=== PATIENT | female | born 1960 | race Caucasian/White ===

== ENCOUNTER 2016-10-07 09:50 | Emergency (ER) | payer OTHER ==
[2016-10-07] MEDS ORDERED: MORPHINE SULFATE 10 MG/ML INJ IM ONE ×2 (10:36→10:39)
[2016-10-07] MEDS ORDERED: ONDANSETRON 4 MG TAB.RAPDIS PO ONE (10:39)
--- NOTE | 2016-10-07 10:45 | ER Document Report ---
ED Neck/Back Problem - General Chief Complaint: Back Pain Stated Complaint: BACK PAIN Time Seen by Provider: 10/07/16 10:16 Notes: 56 yo female c/o low back pain x 4 days. 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 + radiculpathy to right hip. no bowel/ bladder change, no fever. + nausea, + headache TRAVEL OUTSIDE OF THE [place] IN LAST 30 DAYS: No - HPI Patient complains to provider of: Pain Onset: Gradual Timing: Constant, Worse Quality of pain: Burning, Sharp Pain Level: 4 Recent injury: Possibly Associated symptoms: Radiation to leg - right, Lower back pain. denies: Fever, Incontinence, Sensory loss, Unable to urinate Exacerbated by: Sitting position, Other - changing positions Similar symptoms previously: No Recently seen / treated by doctor: No - Related Data Allergies/Adverse Reactions: No Known Allergies Allergy (Verified 10/07/16 09:57) Past Medical History - General Information source: Patient - Social History Smoking Status: Current Every Day Smoker Frequency of alcohol use: None Drug Abuse: None Lives with: Family Family History: Reviewed & Not Pertinent Patient has suicidal ideation: No Patient has homicidal ideation: No Renal/ Medical History: Denies: Hx Peritoneal Dialysis Review of Systems - Review of Systems Constitutional: No symptoms reported EENT: No symptoms reported Cardiovascular: No symptoms reported Respiratory: No symptoms reported Gastrointestinal: No symptoms reported Genitourinary: No symptoms reported Female Genitourinary: No symptoms reported Musculoskeletal: Back pain Skin: No symptoms reported Hematologic/Lymphatic: No symptoms reported Neurological/Psychological: No symptoms reported -: Yes All other systems reviewed and negative Physical Exam - Vital signs Vitals: Temp Pulse Resp BP Pulse Ox 98.6 F 74 16 180/89 H 97 10/07/16 09:57 10/07/16 09:57 10/07/16 09:57 10/07/16 09:57 10/07/16 09:57 Interpretation: Normal - General General appearance: Alert In distress: Mild - HEENT Head: Normocephalic, Atraumatic Eyes: Normal Pupils: PERRL - Respiratory Respiratory status: No respiratory distress Chest status: Nontender Breath sounds: Normal Chest palpation: Normal - Cardiovascular Rhythm: Regular Heart sounds: Normal auscultation Murmur: No - Abdominal Inspection: Normal Distension: No distension Bowel sounds: Normal Tenderness: Nontender Organomegaly: No organomegaly - Back Back: Tender, Vertebra tenderness - lumbar spinal and right paraspinal tenderness. mild right SI tenderness. negative SLT, neg heel/toe. No: CVA tenderness - Extremities General upper extremity: Normal inspection, Nontender, Normal color, Normal ROM , Normal temperature General lower extremity: Normal inspection, Nontender, Normal color, Normal ROM , Normal temperature, Normal weight bearing. No: Lon's sign - Neurological Neuro grossly intact: Yes Cognition: Normal Orientation: AAOx4 [place] Coma Scale Eye Opening: Spontaneous [place] Coma Scale Verbal: Oriented [place] Coma Scale Motor: Obeys Commands [place] Coma Scale Total: 15 Speech: Normal Motor strength normal: LUE, RUE, LLE, RLE Sensory: Normal - Psychological Associated symptoms: Normal affect, Normal mood - Skin Skin Temperature: Warm Skin Moisture: Dry Skin Color: Normal Course - Re-evaluation Re-evalutation: 10/07/16 10:43 no neurologic red flags. no imaging indicated. low suspicion for cauda equina , epidural abscess, spinal impingement. no urinary symtpoms 10/07/16 10:48 blood pressure is elevated today. no hx/o HTN. most likely due to pain. pt aware of elevated reading and told to recheck blood pressure when pain is controlled. - Vital Signs Vital signs: Temp Pulse Resp BP Pulse Ox 98.6 F 74 18 180/89 H 97 10/07/16 09:57 10/07/16 09:57 10/07/16 10:15 10/07/16 09:57 10/07/16 09:57 Discharge - Discharge Clinical Impression: Low back pain Qualifiers: Chronicity: acute Back pain laterality: midline Sciatica presence: with sciatica Sciatica laterality: sciatica of right side Qualified Code(s): M54.41 - Lumbago with sciatica, right side Condition: Stable Disposition: HOME, SELF-CARE Instructions: Ice Packs ([facility]), Warm Packs ([facility]), Oral Narcotic Medication ([facility]) , Low Back Pain ([facility]), Muscle Relaxers ([facility]), Ibuprofen (General) ([facility]) Additional Instructions: please take medications as prescribed follow up with primary care or worker's comp provider for further evaluation and treatment if pain persists your blood pressure is elevated today, please keep blood pressure diary. if BP remains elevated, follow up with your primary care for further treatment Prescriptions: Ibuprofen [Motrin 800 Mg Tablet] 800 mg PO Q6H #20 tablet Methocarbamol [Robaxin 500 Mg Tablet] 1,000 mg PO Q6 #30 tablet Oxycodone HCl/Acetaminophen [Percocet 5-325 mg Tablet] 1 - 2 tab PO ASDIR PRN # 25 tablet PRN Reason: Forms: Return to Work, Elevated Blood Pressure
[2016-10-07 11:48] VITALS: BP 146/81
== END 2016-10-07 11:48 | disposition home or self-care (01) ==
LOC: ER 09:50
DX: M54.41 Lumbago with sciatica, right side (principal); M54.5 Low back pain; M54.9 Dorsalgia, unspecified; F17.200 Nicotine dependence, unspecified, uncomplicated
CPT/HCPCS: 99283; 96372; S0119; J2270

== ENCOUNTER 2019-06-24 19:06 | Inpatient (IN) | payer BC, OTHER ==
--- NOTE | 2019-06-24 19:56 | EKG REPORT ---
SEVERITY:- ABNORMAL ECG - SINUS TACHYCARDIA LEFT AXIS DEVIATION BORDERLINE R WAVE PROGRESSION, ANTERIOR LEADS BORDERLINE T ABNORMALITIES, LATERAL LEADS : Confirmed by: Eric Nuñez MD 24-Jun-2019 19:55:28
[2019-06-24] MEDS ORDERED: ONDANSETRON 4 MG TAB.RAPDIS PO ONE (20:04)
--- NOTE | 2019-06-24 20:10 | ER Document Report ---
ED Medical Screen (RME) - General Chief Complaint: General Weakness Stated Complaint: GENERAL WEAKNESS,DIZZINESS,LETHARGIC Time Seen by Provider: 06/24/19 20:04 Notes: HPI: 59-year-old female with history of rheumatoid arthritis, hypertension, type 2 diabetes presenting for multiple complaints. Patient states she has been having ongoing symptoms for a month of generalized weakness, intermittent shortness of breath, episodes of dizziness, episodes of falling, episodes of swelling of the legs and ankles. Has gone to her PCP several times is not satisfied with their treatment so decided to come to the emergency department tonight. Patient states a week ago she did have a fall with injury to the right chest wall area, also bruised to the left leg. Does report increased sensation of need to urinate with only small amounts of urine I have greeted and performed a rapid initial assessment of this patient. A comprehensive ED assessment and evaluation of the patient, analysis of test results and completion of the medical decision making process will be conducted by additional ED providers PHYSICAL EXAMINATION: GENERAL: Well-appearing, well-nourished and in mild acute distress. HEAD: Atraumatic, normocephalic. EYES: sclera anicteric, conjunctiva are normal. ENT: Moist mucous membranes. NECK: Normal range of motion LUNGS: Normal work of breathing, clear to auscultation, mild tachycardia HEART: 2+ radial pulses bilaterally ABD: limited by positioning for exam in triage. Mild generalized tenderness on exam EXTREMITIES: 1+ edema bilateral lower extremities edema. No cyanosis. NEUROLOGICAL: No focal neurological deficits. Moves all extremities spontaneously and on command. PSYCH: Normal mood, normal affect. SKIN: Warm, Dry, normal turgor, no rashes or lesions noted. TRAVEL OUTSIDE OF THE [place] IN LAST 30 DAYS: No - Related Data Allergies/Adverse Reactions: No Known Allergies Allergy (Verified 10/07/16 09:57) Past Medical History - Social History Frequency of alcohol use: None Drug Abuse: None Renal/ Medical History: Denies: Hx Peritoneal Dialysis Physical Exam - Vital signs Vitals: Temp Pulse Resp BP Pulse Ox 97.9 F 106 H 20 143/75 H 94 06/24/19 19:38 06/24/19 19:38 06/24/19 19:38 06/24/19 19:38 06/24/19 19:38 Course - Vital Signs Vital signs: Temp Pulse Resp BP Pulse Ox 97.9 F 106 H 20 143/75 H 94 06/24/19 19:38 06/24/19 19:38 06/24/19 19:38 06/24/19 19:38 06/24/19 19:38 - Laboratory Laboratory results interpreted by me: 06/24/19 19:34 POC Glucose 154 H
--- NOTE | 2019-06-24 20:34 | RADIOLOGY REPORT (SQ) ---
EXAM DESCRIPTION: [facility]: XR CHEST 2 VIEWS Views: 2 CLINICAL HISTORY: 59 years Female; sob; COMPARISON: None. FINDINGS: Lungs: Small right pleural effusion. Minimal right basal atelectasis. No focal acute infiltrates. No pneumothorax. No left pleural effusion. Mediastinum: Mediastinum is within normal limits for this positioning. Bones: Bony structures are unremarkable. IMPRESSION: 1. Small right pleural effusion with partial right lower lobe atelectasis.
[2019-06-24 20:55] LABS: ABSOLUTE BASOPHILS # (AUTO) 0.1 10^3/uL (0.0-0.2); ABSOLUTE EOSINOPHILS # (AUTO) 0.2 10^3/uL (0.0-0.6); ABSOLUTE LYMPHOCYTES (AUTO) 1.3 10^3/uL (0.5-4.7); ABSOLUTE MONOCYTES (AUTO) 1.2 10^3/uL (0.1-1.4); ABSOLUTE NEUT (AUTO) 10.4 10^3/uL (1.7-8.2); BASOPHILS % (AUTO) 0.9 % (0-2); EOSINOPHILS % (AUTO) 1.5 % (0-6); HEMATOCRIT 38.7 % (36.0-47.0); HEMOGLOBIN 12.9 g/dL (12.0-15.5); LYMPHOCYTES % (AUTO) 9.5 % (13-45); MEAN CORPUSCULAR HEMOGLOBIN 27.2 pg (27.0-33.4); MEAN CORPUSCULAR HGB CONC 33.3 g/dL (32.0-36.0); MEAN CORPUSCULAR VOLUME 82 fl (80-97); MONOCYTES % (AUTO) 9.3 % (3-13); PLATELET COUNT 575 10^3/uL (150-450); RED BLOOD COUNT 4.74 10^6/uL (3.72-5.28); RED CELL DISTRIBUTION WIDTH 13.9 % (11.5-14.0); SEGMENTED NEUTROPHILS % (AUTO) 78.8 % (42-78); TOTAL CELLS COUNTED % (AUTO) 100 %; WHITE BLOOD COUNT 13.2 10^3/uL (4.0-10.5)
[2019-06-24 21:13] LABS: ALBUMIN 3.5 g/dL (3.5-5.0); ALKALINE PHOSPHATASE 163 U/L (38-126); ANION GAP 11 (5-19); ASPARTATE AMINO TRANSFERASE 13 U/L (14-36); BILIRUBIN,DIRECT 0.2 mg/dL (0.0-0.4); BILIRUBIN,TOTAL 0.5 mg/dL (0.2-1.3); BLOOD UREA NITROGEN 12 mg/dL (7-20); CALCIUM 9.9 mg/dL (8.4-10.2); CARBON DIOXIDE 26 mmol/L (22-30); CHLORIDE 95 mmol/L (98-107); GLUCOSE 155 mg/dL (75-110); POTASSIUM 4.1 mmol/L (3.6-5.0); TOTAL PROTEIN 6.6 g/dL (6.3-8.2)
[2019-06-24 21:15] LABS: CREATINE KINASE < 20 U/L (30-135)
--- NOTE | 2019-06-24 21:30 | ER Document Report ---
ED General - General Chief Complaint: General Weakness Stated Complaint: GENERAL WEAKNESS,DIZZINESS,LETHARGIC Time Seen by Provider: 06/24/19 20:04 Notes: Patient is a 59-year-old female that comes to the emergency department for chief complaint of abdominal pain, nausea, vomiting, generalized weakness, and inability to eat. She states that she hurts in her upper abdomen, she states whenever she tries to eat she will vomit or have a lot of pain. She states that she is starting to get so weak that she fell a couple of days ago, she states the right side of her chest is bruised and still hurts and she also bruised her left proximal thigh. She denies hitting her head. She denies difficulty breathing or current chest pain except for when she moves. She denies fever. She has had a cholecystectomy, denies alcohol. Past medical history of type 2 diabetes on metformin, hypertension on lisinopril, rheumatoid arthritis on methotrexate, anxiety/depression on duloxetine. Her primary care is Dr. Wyatt. TRAVEL OUTSIDE OF THE [place] IN LAST 30 DAYS: No - Related Data Allergies/Adverse Reactions: No Known Allergies Allergy (Verified 10/07/16 09:57) Past Medical History - General Information source: Patient - Social History Smoking Status: Current Every Day Smoker Frequency of alcohol use: None Drug Abuse: None Lives with: Family Family History: Reviewed & Not Pertinent Patient has suicidal ideation: No Patient has homicidal ideation: No - Past Medical History Cardiac Medical History: Reports: Hx Hypertension Endocrine Medical History: Reports: Hx Diabetes Mellitus Type 2 Renal/ Medical History: Denies: Hx Peritoneal Dialysis Musculoskeletal Medical History: Reports Hx Arthritis - RA Psychiatric Medical History: Reports: Hx Anxiety Past Surgical History: Reports: Hx Cholecystectomy - Immunizations Hx Diphtheria, Pertussis, Tetanus Vaccination: Yes Review of Systems - Review of Systems Constitutional: See HPI EENT: No symptoms reported Cardiovascular: No symptoms reported Respiratory: No symptoms reported Gastrointestinal: See HPI Genitourinary: No symptoms reported Female Genitourinary: No symptoms reported Musculoskeletal: No symptoms reported Skin: No symptoms reported Hematologic/Lymphatic: No symptoms reported Neurological/Psychological: No symptoms reported Physical Exam - Vital signs Vitals: Temp Pulse Resp BP Pulse Ox 97.9 F 106 H 20 143/75 H 94 06/24/19 19:38 06/24/19 19:38 06/24/19 19:38 06/24/19 19:38 06/24/19 19:38 - Notes Notes: GENERAL: Mildly uncomfortable in appearance but not in severe distress, appropriate and interactive HEAD: Normocephalic, atraumatic. EYES: Pupils equal, round, and reactive to light. Extraocular movements intact. ENT: Oral mucosa dry, tongue midline. Oropharynx unremarkable. Airway patent. LUNGS: Clear to auscultation bilaterally, no wheezes, rales, or rhonchi. No respiratory distress. HEART borderline tachycardia, normal rhythm, no murmur ABDOMEN: Notable epigastric tenderness but remainder the abdomen is nontender. There is some distention but no rigidity. Bowel sounds are still noted. EXTREMITIES: Moves all 4 extremities spontaneously. No edema, normal radial and dorsalis pedis pulses bilaterally. No cyanosis. BACK: no cervical, thoracic, lumbar midline tenderness. No saddle anesthesia, normal distal neurovascular exam. Moves all extremities in full range of motion. NEUROLOGICAL: Alert and oriented x3. Normal speech. Cranial nerves II through XII grossly intact. PSYCH: Normal affect, normal mood. SKIN: Warm, dry, normal turgor. No rashes or lesions noted. Course - Re-evaluation Re-evalutation: CBC showed mild leukocytosis. Patient has epigastric tenderness on exam. She has had a cholecystectomy. Lipase is elevated at almost 1700, chemistry nonspecific otherwise. Troponin ordered in triage is indeterminate. Urine appears infected. Culture placed, started on the antibiotics. Because of patient's diffuse abdominal swelling, pancreatitis, urinary tract infection, decision was made to proceed with CAT scan to rule out acute etiology or surgical etiology for pancreatitis. Patient states full agreement with this plan. CT showing ascites in somewhat large amount. CT also shows abnormal area in the peritoneum, possible peritoneal carcinomatosis. Peritonitis cannot be ruled out but based on patient's benign abdominal exam except for the epigastric pain I have low suspicion of peritonitis, she does not have peritoneal signs on exam. I discussed with Dr. Gillespie. He recommends admission to hospitalist/patient's provider for additional work-up and treatment of pancreatitis and possible peritoneal carcinomatosis. Reevaluated patient, she is much more comfortable after medications, she states understanding and agreement with plan, also states understanding and appreciation. Discussed with Dr. Wyatt, patient's hospitalist/provider, patient accepted to IMCU full admission. - Vital Signs Vital signs: Temp Pulse Resp BP Pulse Ox 97.9 F 96 15 120/82 90 L 06/24/19 19:38 06/25/19 07:00 06/25/19 03:01 06/25/19 03:01 06/25/19 03:01 - Laboratory Result Diagrams: 06/25/19 07:11 06/24/19 20:35 Laboratory results interpreted by me: 06/24/19 06/24/19 06/24/19 19:34 20:30 20:35 WBC 13.2 H Plt Count 575 H Lymph % (Auto) 9.5 L Absolute Neuts (auto) 10.4 H Seg Neutrophils % 78.8 H Sodium 132.4 L Chloride 95 L Glucose 155 H POC Glucose 154 H AST 13 L Alkaline Phosphatase 163 H Creatine Kinase < 20 L NT-Pro-B Natriuret Pep Lipase 1680.8 H Urine Protein Urine Glucose (UA) Urine Blood Ur Leukocyte Esterase 06/24/19 06/24/19 20:35 21:30 WBC Plt Count Lymph % (Auto) Absolute Neuts (auto) Seg Neutrophils % Sodium Chloride Glucose POC Glucose AST Alkaline Phosphatase Creatine Kinase NT-Pro-B Natriuret Pep 552 H Lipase Urine Protein 100 H Urine Glucose (UA) 50 H Urine Blood LARGE H Ur Leukocyte Esterase MODERATE H Discharge - Discharge Clinical Impression: Pancreatitis Qualifiers: Chronicity: acute Pancreatitis type: unspecified pancreatitis type Acute pancreatitis complication: unspecified Qualified Code(s): K85.90 - Acute pancreatitis without necrosis or infection, unspecified Abdominal pain Qualifiers: Abdominal location: generalized Qualified Code(s): R10.84 - Generalized abdominal pain Ascites Qualifiers: Ascites type: other type Qualified Code(s): R18.8 - Other ascites Condition: Stable Disposition: ADMITTED INPATIENT Admitting Provider: Yoselin Unit Admitted: [facility]
[2019-06-24 21:35] LABS: TROPONIN I 0.054 ng/mL
[2019-06-24] MEDS ORDERED: ONDANSETRON HCL INJ/PF 4 MG/2 ML SDV IV ONE (21:39)
[2019-06-24] MEDS ORDERED: NORMAL SALINE 1000 ML 1,000 ML IV ONE (21:39)
[2019-06-24] MEDS ORDERED: MORPHINE SULFATE 10 MG/ML INJ IV ONE (21:39)
[2019-06-24 21:49] LABS: AMORPHOUS SEDIMENT,URINE TRACE /HPF; APPEARANCE,URINE CLOUDY; BILIRUBIN,URINE NEGATIVE (NEGATIVE); COLOR,URINE AMBER; GLUCOSE, URINE 50 mg/dL (NEGATIVE); KETONES,URINE NEGATIVE (NEGATIVE); LEUKOCYTE ESTERASE,URINE MODERATE (NEGATIVE); NITRITE,URINE NEGATIVE (NEGATIVE); PROTEIN,URINE 100 mg/dL (NEGATIVE); URINE SPECIFIC GRAVITY 1.016; UROBILINOGEN,URINE NEGATIVE mg/dL (<2.0)
[2019-06-24] MEDS ORDERED: CEFTRIAXONE 1 GM/D5W RTU 1 GM/50 ML RTUPB IV ONE (22:55)
--- NOTE | 2019-06-25 00:21 | RADIOLOGY REPORT (SQ) ---
CLINICAL HISTORY: sharp upper abd pain, vomiting, elevated lipase COMPARISON: None. TECHNIQUE: CT ABDOMEN PELVIS WITH IV CONTRAST on 06/24/2019 9:40 PM [employer] This exam was performed according to our departmental dose-optimization program, which includes automated exposure control, adjustment of the mA and/or kV according to patient size and/or use of iterative reconstruction technique. FINDINGS: There is a moderate right pleural effusion. Abdomen: Liver is fatty in attenuation. There is no biliary dilatation. Cholecystectomy was performed. There is large amount of upper abdominal ascites. There are infiltrative nodular changes of the mid and lower omentum. The pancreas and spleen are normal in appearance. The adrenal glands and kidneys are unremarkable. Abdominal aorta is normal in course and caliber without aneurysm. There is no free air. There is no retroperitoneal adenopathy. Pelvis: There is no bowel obstruction. Urinary bladder is unremarkable. There is large amount of free pelvic fluid. There is dependent minimal soft tissue within the free fluid versus blood products. There is thickening of peritoneal membranes. Uterus contains several tiny calcified fibroids. Appendix is normal. Skeleton: There are no acute osseous findings. No suspicious bony lesions. IMPRESSION: Relatively unremarkable appearance of the pancreas. Ascites with nodular appearance of the deep aspect of pelvic fluid and thickening of peritoneal reflections. Underlying peritonitis is not excluded. Nodular infiltrative appearance of omentum suggests the possibility of peritoneal carcinomatosis.
[2019-06-25 07:30] LABS: ABSOLUTE BASOPHILS # (AUTO) 0.1 10^3/uL (0.0-0.2); ABSOLUTE EOSINOPHILS # (AUTO) 0.3 10^3/uL (0.0-0.6); ABSOLUTE LYMPHOCYTES (AUTO) 0.9 10^3/uL (0.5-4.7); ABSOLUTE MONOCYTES (AUTO) 1.1 10^3/uL (0.1-1.4); BASOPHILS % (AUTO) 1.2 % (0-2); EOSINOPHILS % (AUTO) 2.6 % (0-6); HEMATOCRIT 34.8 % (36.0-47.0); HEMOGLOBIN 11.9 g/dL (12.0-15.5); LYMPHOCYTES % (AUTO) 8.1 % (13-45); MEAN CORPUSCULAR HEMOGLOBIN 27.6 pg (27.0-33.4); MEAN CORPUSCULAR HGB CONC 34.1 g/dL (32.0-36.0); MEAN CORPUSCULAR VOLUME 81 fl (80-97); MONOCYTES % (AUTO) 9.3 % (3-13); PLATELET COUNT 538 10^3/uL (150-450); RED CELL DISTRIBUTION WIDTH 14.1 % (11.5-14.0); SEGMENTED NEUTROPHILS % (AUTO) 78.8 % (42-78); TOTAL CELLS COUNTED % (AUTO) 100 %; WHITE BLOOD COUNT 11.4 10^3/uL (4.0-10.5)
[2019-06-25 07:37] LABS: INTERNATIONAL RATION (INR) 1.33; PROTHROMBIN TIME 16.6 SEC (11.4-15.4)
[2019-06-25 07:48] LABS: ALBUMIN 3.1 g/dL (3.5-5.0); ALKALINE PHOSPHATASE 141 U/L (38-126); AMYLASE 83 U/L (30-110); ANION GAP 9 (5-19); ASPARTATE AMINO TRANSFERASE 13 U/L (14-36); BILIRUBIN,DIRECT 0.2 mg/dL (0.0-0.4); BILIRUBIN,TOTAL 0.4 mg/dL (0.2-1.3); BLOOD UREA NITROGEN 11 mg/dL (7-20); CALCIUM 9.3 mg/dL (8.4-10.2); CARBON DIOXIDE 27 mmol/L (22-30); CHLORIDE 98 mmol/L (98-107); GLUCOSE 148 mg/dL (75-110); POTASSIUM 4.2 mmol/L (3.6-5.0); TOTAL PROTEIN 6.2 g/dL (6.3-8.2)
[2019-06-25] MEDS ORDERED: PANTOPRAZOLE SODIUM 40 MG VIAL IV SCH (10:00)
[2019-06-25] MEDS: DEXTROSE 5%-NORMAL SALINE 1,000 ML IV PRN ×2 (10:25→17:52)
[2019-06-25] MEDS ORDERED: PIPERACILLIN SODIUM/TAZOBACTAM 3.375 GM in NORMAL SALINE 100 ML IV SCH (13:00)
--- NOTE | 2019-06-25 13:35 | PDOC H&P ---
History of Present Illness Admission Date/PCP: 06/25/19 03:01 NICOLE LUIS Patient complains of: Abdominal pain, Nausea, vomiting History of Present Illness: ENOC WASHINGTON is a 59 year old female patient known to my practice who presented to the ED with complain of abdominal pain, nausea, and vomiting. Patient reported that her abdominal pain have been ongoing for about 2-3 months but worsen in the last couple of days with associated nausea, vomiting, poor appetite and po intake. She denied any associated diarrhea, constipation, urinary frequency, hematuria, flank pain, or dysuria. She reported episode of fall couple of days ago, attributed to generalized weakness, and sustained soft tissue injury with right side chest wall and left proximal thigh bruises. She denied hitting her head, headache, or dizziness. Her initial evaluation in the ED was significant for elevated serum Lipase, Alkaline phosphates, NT-Pro BNP, abnormal urinalysis, Abdomen and pelvic CT scan suggested pelvic ascites with peritoneal omentum appearance worrisome for carcinomatosis. She was advised hospitalization for further evaluation and management. Her medical morbidities are as listed below. Past Medical History Cardiac Medical History: Reports: Hypertension Endocrine Medical History: Reports: Diabetes Mellitus Type 2 Musculoskeltal Medical History: Reports: Arthritis - RA Past Surgical History Past Surgical History: Reports: Cholecystectomy Social History Lives with: Family Smoking Status: Current Every Day Smoker Cigarettes Packs Per Day: 0.2 Electronic Cigarette use?: No Number of Years Smokin Last Time Smoked: 3/5 Frequency of Alcohol Use: None Hx Recreational Drug Use: No Hx Prescription Drug Abuse: No - Advance Directive Resuscitation Status: Full Code Family History Family History: Reviewed & Not Pertinent Parental Family History Reviewed: Yes Children Family History Reviewed: Yes Sibling(s) Family History Reviewed.: Yes Medication/Allergy Home Medications: Ibuprofen [Motrin 800 Mg Tablet] 800 mg PO Q6H #20 tablet 10/07/16 Methocarbamol [Robaxin 500 Mg Tablet] 1,000 mg PO Q6 #30 tablet 10/07/16 Oxycodone HCl/Acetaminophen [Percocet 5-325 mg Tablet] 1 - 2 tab PO ASDIR PRN #25 tablet 10/07/16 Allergies/Adverse Reactions: No Known Allergies Allergy (Verified 10/07/16 09:57) Review of Systems Constitutional: PRESENT: fatigue, weakness. ABSENT: chills, fever(s), headache(s), weight gain, weight loss Eyes: ABSENT: visual disturbances Ears: ABSENT: hearing changes Cardiovascular: ABSENT: chest pain, dyspnea on exertion, edema, orthropnea, palpitations Respiratory: ABSENT: cough, hemoptysis Gastrointestinal: PRESENT: abdominal pain, nausea, vomiting. ABSENT: constipation, diarrhea, hematemesis, hematochezia Genitourinary: ABSENT: dysuria, hematuria Musculoskeletal: ABSENT: joint swelling Integumentary: ABSENT: rash, wounds Neurological: ABSENT: abnormal gait, abnormal speech, confusion, dizziness, focal weakness, syncope Psychiatric: ABSENT: anxiety, depression, homidical ideation, suicidal ideation Endocrine: ABSENT: cold intolerance, heat intolerance, polydipsia, polyuria Hematologic/Lymphatic: ABSENT: easy bleeding, easy bruising, lymphadenopathy Allergic/Immunologic: ABSENT: seasonal rhinorrhea Physical Exam Vital Signs: Temp Pulse Resp BP Pulse Ox 98.3 F 97 20 118/56 L 93 06/25/19 08:21 06/25/19 08:21 06/25/19 08:21 06/25/19 08:21 06/25/19 08:21 Intake & Output 06/24/19 06/25/19 06/26/19 05:59 06:59 06:59 Intake Total Balance Weight General appearance: PRESENT: no acute distress, obese Head exam: PRESENT: atraumatic, normocephalic Eye exam: PRESENT: conjunctiva pink, EOMI, PERRLA. ABSENT: scleral icterus Ear exam: PRESENT: normal external ear exam Mouth exam: PRESENT: moist, tongue midline Neck exam: PRESENT: full ROM. ABSENT: carotid bruit, JVD, lymphadenopathy, thyromegaly Respiratory exam: PRESENT: clear to auscultation clark, decreased breath sounds - at lung bases Cardiovascular exam: PRESENT: RRR, +S1, +S2. ABSENT: diastolic murmur, rubs, systolic murmur Pulses: PRESENT: normal dorsalis pedis pul, +2 pedal pulses bilateral Vascular exam: ABSENT: pallor GI/Abdominal exam: PRESENT: normal bowel sounds, soft, tenderness - generalized, nonspecific, to deep palpation.. ABSENT: distended, guarding, mass, organolmegaly, rebound Rectal exam: PRESENT: deferred Extremities exam: ABSENT: pedal edema Musculoskeletal exam: PRESENT: deformity - related to arthritis Neurological exam: PRESENT: alert, awake, oriented to person, oriented to place, oriented to time, oriented to situation, CN II-XII grossly intact. ABSENT: motor sensory deficit Psychiatric exam: PRESENT: appropriate affect, normal mood. ABSENT: homicidal ideation, suicidal ideation Skin exam: PRESENT: dry, intact, warm, other - resolving ecchymoses right anterior chest wall and medical aspect of left thigh. ABSENT: cyanosis, rash Results Laboratory Results: 06/25/19 07:11 06/25/19 07:11 06/24/19 06/24/19 06/24/19 20:30 20:35 20:35 WBC 13.2 H RBC 4.74 Hgb 12.9 Hct 38.7 MCV 82 MCH 27.2 MCHC 33.3 RDW 13.9 Plt Count 575 H Seg Neutrophils % 78.8 H Sodium 132.4 L Potassium 4.1 Chloride 95 L Carbon Dioxide 26 Anion Gap 11 BUN 12 Creatinine 0.73 Est GFR ( Amer) > 60 Glucose 155 H Calcium 9.9 Magnesium 2.1 Total Bilirubin 0.5 AST 13 L Alkaline Phosphatase 163 H Total Protein 6.6 Albumin 3.5 Amylase Lipase 1680.8 H TSH 2.48 Urine Color Urine Appearance Urine pH Ur Specific [place] Urine Protein Urine Glucose (UA) Urine Ketones Urine Blood Urine Nitrite Ur Leukocyte Esterase Urine WBC (Auto) Urine RBC (Auto) 06/24/19 06/25/19 06/25/19 21:30 07:11 07:11 WBC 11.4 H RBC 4.30 Hgb 11.9 L Hct 34.8 L MCV 81 MCH 27.6 MCHC 34.1 RDW 14.1 H Plt Count 538 H Seg Neutrophils % 78.8 H Sodium 134.4 L Potassium 4.2 Chloride 98 Carbon Dioxide 27 Anion Gap 9 BUN 11 Creatinine 0.59 Est GFR ( Amer) > 60 Glucose 148 H Calcium 9.3 Magnesium Total Bilirubin 0.4 AST 13 L Alkaline Phosphatase 141 H Total Protein 6.2 L Albumin 3.1 L Amylase 83 Lipase 1346.5 H TSH Urine Color CARROL Urine Appearance CLOUDY Urine pH 5.0 Ur Specific [place] 1.016 Urine Protein 100 H Urine Glucose (UA) 50 H Urine Ketones NEGATIVE Urine Blood LARGE H Urine Nitrite NEGATIVE Ur Leukocyte Esterase MODERATE H Urine WBC (Auto) 46 Urine RBC (Auto) >182 06/24/19 06/24/19 20:35 20:35 Creatine Kinase < 20 L Troponin I 0.054 NT-Pro-B Natriuret Pep 552 H Impressions: Chest X-Ray 06/24/19 20:04 IMPRESSION: 1. Small right pleural effusion with partial right lower lobe atelectasis. Abdomen/Pelvis CT 06/24/19 21:40 IMPRESSION: Relatively unremarkable appearance of the pancreas. Ascites with nodular appearance of the deep aspect of pelvic fluid and thickening of peritoneal reflections. Underlying peritonitis is not excluded. Nodular infiltrative appearance of omentum suggests the possibility of peritoneal carcinomatosis. Assessment & Plan - Diagnosis (1) Acute pancreatitis Qualifiers: Pancreatitis type: unspecified pancreatitis type Acute pancreatitis complication: unspecified Qualified Code(s): K85.90 - Acute pancreatitis without necrosis or infection, unspecified Is this a current diagnosis for this admission?: Yes Plan: See admitting attending physician for details about care plan. (2) UTI (urinary tract infection) Qualifiers: Urinary tract infection type: site unspecified Hematuria presence: with hematuria Qualified Code(s): N39.0 - Urinary tract infection, site not specified; R31.9 - Hematuria, unspecified Is this a current diagnosis for this admission?: Yes Plan: See admitting attending physician for details about care plan. (3) Small pleural effusion Is this a current diagnosis for this admission?: Yes Plan: See admitting attending physician for details about care plan. (4) Atelectasis of right lung Is this a current diagnosis for this admission?: Yes Plan: See admitting attending physician for details about care plan. (5) Diabetes mellitus type 2 in obese Is this a current diagnosis for this admission?: Yes Plan: See admitting attending physician for details about care plan. (6) HTN (hypertension) Qualifiers: Hypertension type: essential hypertension Qualified Code(s): I10 - Essential (primary) hypertension Is this a current diagnosis for this admission?: Yes Plan: See admitting attending physician for details about care plan. (7) Rheumatoid arthritis Qualifiers: Rheumatoid arthritis location: unspecified site Is this a current diagnosis for this admission?: Yes Plan: See admitting attending physician for details about care plan. - Time Time Spent: 50 to 70 Minutes Medications reviewed and adjusted accordingly: Yes Anticipated discharge: Home with Homehealth Within: Other - Inpatient Certification Based on my medical assessment, after consideration of the patient's comorbiditi es, presenting symptoms, or acuity I expect that the services needed warrant INPATIENT care.: Yes I certify that my determination is in accordance with my understanding of [facility]'s requirements for reasonable and necessary INPATIENT services [42 CFR 412.3e].: Yes Medical Necessity: Significant Comorbidiites Make Outpatient Treatment Too Risky, Need Close Monitoring Due to Risk of Patient Decompensation, Need For IV Fluids, Need For Continuous Telemetry Monitoring, Need for Pain Control, Need for IV Antibiotics, Risk of Complication if Not Cared For in Hospital, Risk of Diagnosis Which Will Require Inpatient Eval/Care/Monitoring Post Hospital Care: D/C Welfare Manager Documentation - Plan Summary Plan Summary: See admitting attending physician for details about care plan.
[2019-06-25] MEDS: ENOXAPARIN SODIUM INJ 40 MG/0.4 ML DISP.SYRIN SUBCUT SCH (14:30)
--- NOTE | 2019-06-25 15:43 | RADIOLOGY REPORT (SQ) ---
EXAM DESCRIPTION: CT CHEST WITH COMPLETED DATE/TIME: 06/25/2019 3:26 pm REASON FOR STUDY: Pleural effusion, Atelectasis, Abn. Abd/Pelvic CT COMPARISON: Chest radiograph TECHNIQUE: CT scan of the chest performed using helical scanning technique with dynamic intravenous contrast injection. Images reviewed with lung, soft tissue and bone windows. Reconstructed coronal and sagittal MPR and MIP images reviewed. All images stored on PACS. All CT scanners at this facility use dose modulation, iterative reconstruction, and/or weight based d osing when appropriate to reduce radiation dose to as low as reasonably achievable (ALARA). [facility]: Dose Right [facility]: CareDose [facility]: Dose Right [facility]: Teradose 4D [facility]: RetailTower CONTRAST TYPE AND DOSE: contrast/concentration: Isovue 350.00 mg/ml; Total Contrast Delivered: 72.0 ml; Total Saline Delivered: 28.2 ml RENAL FUNCTION: GFR > 60. RADIATION DOSE: CT Rad equipment meets quality standard of care and radiation dose reduction techniq ues were employed. CTDIvol: 16.1 mGy. DLP: 563 mGy-cm. . LIMITATIONS: None. FINDINGS: LUNGS AND PLEURA: Large posterior layering right pleural effusion with right compressive a telectasis. HILAR AND MEDIASTINAL STRUCTURES: No identified masses or abnormal nodes. HEART AND VASCULAR STRUCTURES: No aneurysm or dissection. No central pulmonary emboli. No pericardi al effusion. HARDWARE: None in the chest. UPPER ABDOMEN: See separate report of the CT of the abdomen. THYROID AND OTHER SOFT TISSUES: No masses. No adenopathy. BONES: No significant finding. OTHER: Large but normal appearing axillary nodes bilateral. IMPRESSION: Large posteriorly related and right pleural effusion with right lung compressive atelect asis. TECHNICAL DOCUMENTATION: JOB ID: [id number] Quality ID # [id number]: Final reports with documentation of one or more dose reduction techniques (e.g., Au tomated exposure control, adjustment of the mA and/or kV according to patient size, use of iterative reconstruction technique) 2010 [email or web address]- All Rights Reserved Reading location - IP/workstation name: [email or web address]
[2019-06-25] MEDS: MORPHINE SULFATE 10 MG/ML INJ IV PRN (17:56)
[2019-06-25] MEDS: FAMOTIDINE INJ/PF 20 MG/2 ML SDV IV SCH (21:34)
[2019-06-25] MEDS: CEFTRIAXONE 1 GM/D5W RTU 1 GM/50 ML RTUPB IV SCH (21:35)
[2019-06-26 06:46] LABS: ABSOLUTE BASOPHILS # (AUTO) 0.1 10^3/uL (0.0-0.2); ABSOLUTE EOSINOPHILS # (AUTO) 0.3 10^3/uL (0.0-0.6); ABSOLUTE LYMPHOCYTES (AUTO) 0.9 10^3/uL (0.5-4.7); ABSOLUTE MONOCYTES (AUTO) 1.1 10^3/uL (0.1-1.4); ABSOLUTE NEUT (AUTO) 8.7 10^3/uL (1.7-8.2); BASOPHILS % (AUTO) 1.3 % (0-2); EOSINOPHILS % (AUTO) 2.7 % (0-6); HEMOGLOBIN 12.2 g/dL (12.0-15.5); LYMPHOCYTES % (AUTO) 8.1 % (13-45); MEAN CORPUSCULAR HEMOGLOBIN 28.6 pg (27.0-33.4); MEAN CORPUSCULAR HGB CONC 34.7 g/dL (32.0-36.0); MEAN CORPUSCULAR VOLUME 82 fl (80-97); PLATELET COUNT 410 10^3/uL (150-450); RED BLOOD COUNT 4.25 10^6/uL (3.72-5.28); RED CELL DISTRIBUTION WIDTH 13.6 % (11.5-14.0); SEGMENTED NEUTROPHILS % (AUTO) 77.9 % (42-78); TOTAL CELLS COUNTED % (AUTO) 100 %; WHITE BLOOD COUNT 11.2 10^3/uL (4.0-10.5)
[2019-06-26] MEDS: CEFTRIAXONE 1 GM/D5W RTU 1 GM/50 ML RTUPB IV SCH (09:47)
[2019-06-26] MEDS: FAMOTIDINE INJ/PF 20 MG/2 ML SDV IV SCH ×2 (09:47→22:14)
[2019-06-26] MEDS: ENOXAPARIN SODIUM INJ 40 MG/0.4 ML DISP.SYRIN SUBCUT SCH (09:52)
[2019-06-26] MEDS: DEXTROSE 5%-NORMAL SALINE 1,000 ML IV PRN (09:52)
[2019-06-26] MEDS: MORPHINE SULFATE 10 MG/ML INJ IV PRN (18:14)
--- NOTE | 2019-06-26 21:27 | PDOC PROGRESS REPORT ---
Subjective Progress Note for:: 06/26/19 Subjective:: Patient reported bilateral leg swelling. No chest pain or difficulty with breathing. No nausea, vomiting, or abdominal pain. Patient reported poor sleep pattern and habitually pace around during the night time. No fever or chills. Reason For Visit: ACUTE PANCREATITIS,UTI,DIABETES MELLITUS TYPE 2 Physical Exam Vital Signs: Temp Pulse Resp BP Pulse Ox 98.2 F 100 16 137/74 H 93 06/26/19 07:49 06/26/19 07:49 06/26/19 07:49 06/26/19 07:49 06/26/19 07:49 Intake & Output 06/25/19 06/26/19 06/27/19 06:59 06:59 06:59 Intake Total 1994 50 Balance 1994 50 Weight General appearance: PRESENT: no acute distress, obese Head exam: PRESENT: atraumatic, normocephalic Eye exam: PRESENT: conjunctiva pink. ABSENT: scleral icterus Ear exam: PRESENT: normal external ear exam Mouth exam: PRESENT: moist Respiratory exam: PRESENT: clear to auscultation clark, decreased breath sounds - at lung bases Cardiovascular exam: PRESENT: RRR, +S1, +S2. ABSENT: diastolic murmur, rubs, systolic murmur Vascular exam: PRESENT: pallor GI/Abdominal exam: PRESENT: normal bowel sounds, soft. ABSENT: distended, guarding, mass, organolmegaly, rebound, tenderness Extremities exam: PRESENT: pedal edema - bilateral pitting edema to mid calf Musculoskeletal exam: PRESENT: ambulatory Neurological exam: PRESENT: alert, awake, oriented to person, oriented to place, oriented to time, oriented to situation, CN II-XII grossly intact. ABSENT: motor sensory deficit Psychiatric exam: PRESENT: appropriate affect, normal mood. ABSENT: homicidal ideation, suicidal ideation Skin exam: PRESENT: dry, warm, other - resolving ecchymosis over right anterior chest wall and left medial thigh region. Results Laboratory Results: 06/26/19 06:16 06/25/19 07:11 06/26/19 06/26/19 06:16 06:16 WBC 11.2 H RBC 4.25 Hgb 12.2 Hct 35.0 L MCV 82 MCH 28.6 MCHC 34.7 RDW 13.6 Plt Count 410 Seg Neutrophils % 77.9 Amylase 71 Lipase 855.5 H 06/24/19 21:30 Clean Catch Midstream Urine Culture - Final Mixed Urogenital Tangela 06/24/19 06/24/19 20:35 20:35 Creatine Kinase < 20 L Troponin I 0.054 NT-Pro-B Natriuret Pep 552 H Impressions: Chest X-Ray 06/24/19 20:04 IMPRESSION: 1. Small right pleural effusion with partial right lower lobe atelectasis. Abdomen/Pelvis CT 06/24/19 21:40 IMPRESSION: Relatively unremarkable appearance of the pancreas. Ascites with nodular appearance of the deep aspect of pelvic fluid and thickening of peritoneal reflections. Underlying peritonitis is not excluded. Nodular infiltrative appearance of omentum suggests the possibility of peritoneal carcinomatosis. Chest CT 06/25/19 00:00 IMPRESSION: Large posteriorly related and right pleural effusion with right lung compressive atelectasis. Assessment & Plan - Diagnosis (1) Acute pancreatitis Qualifiers: Pancreatitis type: unspecified pancreatitis type Acute pancreatitis complication: unspecified Qualified Code(s): K85.90 - Acute pancreatitis without necrosis or infection, unspecified Is this a current diagnosis for this admission?: Yes Plan: Maintain on NPO status. Her serum lipase is on downward trend. Review house designer recommendations. (2) UTI (urinary tract infection) Qualifiers: Urinary tract infection type: site unspecified Hematuria presence: with hematuria Qualified Code(s): N39.0 - Urinary tract infection, site not specified; R31.9 - Hematuria, unspecified Is this a current diagnosis for this admission?: Yes Plan: Continue IV Rocephin coverage. Her thrombocytosis may be reactive to ongoing acute illness. (3) Atelectasis of right lung Is this a current diagnosis for this admission?: Yes Plan: Encourage use of bedside incentive spirometer. Her upcoming thoracentesis may yield more information about her medical condition. (4) Diabetes mellitus type 2 in obese Is this a current diagnosis for this admission?: Yes (5) HTN (hypertension) Qualifiers: Hypertension type: essential hypertension Qualified Code(s): I10 - Essential (primary) hypertension Is this a current diagnosis for this admission?: Yes Plan: Decrease IV fluid rate to 75 ml/hour. Obtain complete echocardiogram in view of her findings and elevated NT-Pro BNP level. (6) Rheumatoid arthritis Qualifiers: Rheumatoid arthritis location: unspecified site Is this a current diagnosis for this admission?: Yes (7) Pleural effusion on right Is this a current diagnosis for this admission?: Yes Plan: I discussed case with on duty radiologist, more moderate than large but accessible to thoracentesis. There is concern for possible more serious medical condition in view of her nodular omental features with pelvic findings on the abdomen/pelvic CT scan. I discussed need for thoracentesis with patient and she is agreeable to care plan. She will be schedule for thoracentesis tomorrow. - Time Time Spent with patient: 25-34 minutes Level of Care: IMCU Medications reviewed and adjusted accordingly: Yes Anticipated discharge: Home with Homehealth Within: Other - Inpatient Certification Based on my medical assessment, after consideration of the patient's comorbidities, presenting symptoms, or acuity I expect that the services needed warrant INPATIENT care.: Yes I certify that my determination is in accordance with my understanding of Medicare's requirements for reasonable and necessary INPATIENT services [42 CFR 412.3e].: Yes Medical Necessity: Significant Comorbidiites Make Outpatient Treatment Too Risky, Need Close Monitoring Due to Risk of Patient Decompensation, Need For IV Fluids, Need For Continuous Telemetry Monitoring, Need for Pain Control, Need for IV Antibiotics, Risk of Complication if Not Cared For in Hospital, Risk of Diagnosis Which Will Require Inpatient Eval/Care/Monitoring Post Hospital Care: D/C Shipwright Helper Documentation - Plan Summary Plan Summary: Obtain CBC with diff, PT, INR, aPPT in AM. Obtain complete echocardiogram and t horacentesis tomorrow. Continue IV Rocephin coverage and maintain on NPO status.
[2019-06-27] MEDS: DEXTROSE 5%-NORMAL SALINE 1,000 ML IV PRN ×2 (00:22→21:16)
[2019-06-27 04:37] LABS: ABSOLUTE BASOPHILS # (AUTO) 0.1 10^3/uL (0.0-0.2); ABSOLUTE EOSINOPHILS # (AUTO) 0.3 10^3/uL (0.0-0.6); ABSOLUTE LYMPHOCYTES (AUTO) 1.1 10^3/uL (0.5-4.7); ABSOLUTE NEUT (AUTO) 8.7 10^3/uL (1.7-8.2); BASOPHILS % (AUTO) 1.3 % (0-2); EOSINOPHILS % (AUTO) 2.8 % (0-6); HEMATOCRIT 38.5 % (36.0-47.0); HEMOGLOBIN 12.8 g/dL (12.0-15.5); LYMPHOCYTES % (AUTO) 9.8 % (13-45); MEAN CORPUSCULAR HEMOGLOBIN 26.9 pg (27.0-33.4); MEAN CORPUSCULAR HGB CONC 33.1 g/dL (32.0-36.0); MEAN CORPUSCULAR VOLUME 81 fl (80-97); MONOCYTES % (AUTO) 8.9 % (3-13); PLATELET COUNT 484 10^3/uL (150-450); RED BLOOD COUNT 4.74 10^6/uL (3.72-5.28); RED CELL DISTRIBUTION WIDTH 14.1 % (11.5-14.0); SEGMENTED NEUTROPHILS % (AUTO) 77.2 % (42-78); TOTAL CELLS COUNTED % (AUTO) 100 %; WHITE BLOOD COUNT 11.2 10^3/uL (4.0-10.5)
[2019-06-27 04:51] LABS: INTERNATIONAL RATION (INR) 1.39; PARTIAL THROMBOPLASTIN TIME 31.2 SEC (23.5-35.8); PROTHROMBIN TIME 17.2 SEC (11.4-15.4)
[2019-06-27 04:58] LABS: ALBUMIN 3.6 g/dL (3.5-5.0); ALKALINE PHOSPHATASE 156 U/L (38-126); ANION GAP 12 (5-19); ASPARTATE AMINO TRANSFERASE 17 U/L (14-36); BILIRUBIN,DIRECT 0.5 mg/dL (0.0-0.4); BILIRUBIN,TOTAL 0.5 mg/dL (0.2-1.3); BLOOD UREA NITROGEN 9 mg/dL (7-20); CALCIUM 8.9 mg/dL (8.4-10.2); CARBON DIOXIDE 26 mmol/L (22-30); CHLORIDE 99 mmol/L (98-107); GLUCOSE 168 mg/dL (75-110); POTASSIUM 3.3 mmol/L (3.6-5.0); TOTAL PROTEIN 7.4 g/dL (6.3-8.2)
[2019-06-27] MEDS: POTASSI CL 20 MEQ/50 ML RIDER 20 MEQ/50 ML RTUPB IV SCH ×3 (08:49→16:16)
[2019-06-27 10:10] LABS: AMYLASE 40 U/L (30-110)
[2019-06-27] MEDS: FAMOTIDINE INJ/PF 20 MG/2 ML SDV IV SCH ×2 (10:33→21:15)
[2019-06-27] MEDS: CEFTRIAXONE 1 GM/D5W RTU 1 GM/50 ML RTUPB IV SCH (10:36)
--- NOTE | 2019-06-27 16:29 | RADIOLOGY REPORT (SQ) ---
EXAM DESCRIPTION: CHEST SINGLE VIEW COMPLETED DATE/TIME: 06/27/2019 4:09 pm REASON FOR STUDY: S/P RT THORA COMPARISON: 06/24/2019 EXAM PARAMETERS: NUMBER OF VIEWS: One view. TECHNIQUE: Single frontal radiographic view of the chest acquired. RADIATION DOSE: NA LIMITATIONS: None. FINDINGS: LUNGS AND PLEURA: Minimal residual small right pleural effusion. No pneumothorax. MEDIASTINUM AND HILAR STRUCTURES: No masses. Contour normal. HEART AND VASCULAR STRUCTURES: Heart normal in size. Normal vasculature. BONES: No acute findings. HARDWARE: None in the chest. OTHER: No other significant finding. IMPRESSION: No pneumothorax status post thoracentesis. TECHNICAL DOCUMENTATION: JOB ID: [id number] 2010 [employer]- All Rights Reserved Reading location - IP/workstation name: [email or web address]
--- NOTE | 2019-06-27 16:35 | RADIOLOGY REPORT (SQ) ---
EXAM DESCRIPTION: U/S THORACENTESIS WITH IMAGING COMPLETED DATE/TIME: 06/27/2019 4:02 pm REASON FOR STUDY: right moderate effusion, abn. Abd/Pel CT scan COMPARISON: CT chest 06/25/2019 LIMITATIONS: None. PROCEDURE: Procedure, risks, benefit, and alternative explained to patient who then gave written con sent. The posterior right chest wall was marked using ultrasound guidance. A time-out was called fo r correct marking verification. Chest prepped and draped using sterile technique. Local anesthesia a chieved using 6 ml of 1% lidocaine injection. A 6fr Safe-T- Centesis set was introduced into the pos terior right pleural space. Fluid was aspirated. The catheter was removed and the entry site was co jean with sterile bandage. No immediate complications noted. Fluid sent for testing Images acquired during the procedure were stored on PACS. FINDINGS: ENTRY SITE: Right posterior pleural space FLUID VOLUME: 600 mL of serosanguineous fluid FLUID ANALYSIS: Yes, sent to the lab for testing OTHER: Post procedure chest x-ray dictated separately demonstrates no pneumothorax IMPRESSION: SUCCESSFUL DIAGNOSTIC AND THERAPEUTIC THORACENTESIS USING ULTRASOUND GUIDANCE. COMMENT: Patient medication list reviewed: Yes- Quality ID# [id number]:Eligible professional attests to doc umenting in the medical record they obtained, updated, or reviewed the patient's current medications. TECHNICAL DOCUMENTATION: JOB ID: [id number] 2010 [employer]- All Rights Reserved Reading location - IP/workstation name: [email or web address]
--- NOTE | 2019-06-27 18:39 | RADIOLOGY REPORT (SQ) ---
EXAM DESCRIPTION: CHEST SINGLE VIEW COMPLETED DATE/TIME: 06/27/2019 6:23 pm REASON FOR STUDY: 2 HRS S/P RT THORA COMPARISON: 06/27/2019 at 1609 hours. EXAM PARAMETERS: NUMBER OF VIEWS: One view. TECHNIQUE: Single frontal radiographic view of the chest acquired. RADIATION DOSE: NA LIMITATIONS: None. FINDINGS: LUNGS AND PLEURA: No pneumothorax. Small right pleural effusion. MEDIASTINUM AND HILAR STRUCTURES: No masses. Contour normal. HEART AND VASCULAR STRUCTURES: Heart normal in size. Normal vasculature. BONES: No acute findings. HARDWARE: None in the chest. OTHER: No other significant finding. IMPRESSION: NO PNEUMOTHORAX 2 HOURS AFTER THORACENTESIS. TECHNICAL DOCUMENTATION: JOB ID: [id number] 2010 [employer]- All Rights Reserved Reading location - IP/workstation name: [email or web address]
[2019-06-27 18:40] LABS: FLUID COLOR RED; FLUID SOURCE LUNG; FLUID TYPE PLEURAL
[2019-06-27 18:41] LABS: FLUID APPEARANCE CLOUDY; FLUID VISCOSITY SLIGHTLY VISCOUS
[2019-06-27] MEDS: MORPHINE SULFATE 10 MG/ML INJ IV PRN (20:09)
--- NOTE | 2019-06-27 20:36 | PDOC PROGRESS REPORT ---
Subjective Progress Note for:: 06/27/19 Subjective:: Patient denied chest pain or difficulty with breathing. No fever or chills. No nausea, vomiting, or abdominal pain. She is schedule for right sided thoracentesis later today for moderate right pleural effusion and concern for omental carcinomatosis in light of normal pancreatic structure and elevated serum lipase level with consideration of pancreatitis. Reason For Visit: ACUTE PANCREATITIS,UTI,DIABETES MELLITUS TYPE 2 Physical Exam Vital Signs: Temp Pulse Resp BP Pulse Ox 97.7 F 83 16 130/69 H 93 06/27/19 04:09 06/27/19 07:00 06/27/19 04:09 06/27/19 04:09 06/27/19 04:09 Intake & Output 06/26/19 06/27/19 06/28/19 06:59 06:59 06:59 Intake Total 1994 1050 Balance 1994 105 Weight 88.7 kg Physical Exam: General appearance: PRESENT: no acute distress, obese Head exam: PRESENT: atraumatic, normocephalic Eye exam: PRESENT: conjunctiva pink. ABSENT: pallor, scleral icterus Ear exam: PRESENT: normal external ear exam Mouth exam: PRESENT: moist Respiratory exam: PRESENT: clear to auscultation clark, decreased breath sounds - at lung bases Cardiovascular exam: PRESENT: RRR, +S1, +S2. ABSENT: diastolic murmur, rubs, systolic murmur GI/Abdominal exam: PRESENT: normal bowel sounds, soft. ABSENT: distended, guarding, mass, organomegaly, rebound, tenderness Extremities exam: PRESENT: pedal edema - bilateral pitting edema to mid calf Musculoskeletal exam: PRESENT: ambulatory Neurological exam: PRESENT: alert, awake, oriented to person, oriented to place, oriented to time, oriented to situation, CN II-XII grossly intact. ABSENT: motor sensory deficit Psychiatric exam: PRESENT: appropriate affect, normal mood. ABSENT: homicidal ideation, suicidal ideation Skin exam: PRESENT: dry, warm, other - resolving ecchymosis over right anterior chest wall and left medial thigh region. Results Laboratory Results: 06/27/19 04:07 06/27/19 04:07 06/27/19 06/27/19 04:07 04:07 WBC 11.2 H RBC 4.74 Hgb 12.8 Hct 38.5 MCV 81 MCH 26.9 L MCHC 33.1 RDW 14.1 H Plt Count 484 H Seg Neutrophils % 77.2 Sodium 136.9 L Potassium 3.3 L Chloride 99 Carbon Dioxide 26 Anion Gap 12 BUN 9 Creatinine 0.52 Est GFR ( Amer) > 60 Glucose 168 H Calcium 8.9 Total Bilirubin 0.5 AST 17 Alkaline Phosphatase 156 H Total Protein 7.4 Albumin 3.6 Lipase 625.2 H 06/24/19 21:30 Clean Catch Midstream Urine Culture - Final Mixed Urogenital Tangela 06/24/19 06/24/19 06/27/19 20:35 20:35 04:07 Creatine Kinase < 20 L Troponin I 0.054 NT-Pro-B Natriuret Pep 552 H 265 H Impressions: Chest X-Ray 06/24/19 20:04 IMPRESSION: 1. Small right pleural effusion with partial right lower lobe atelectasis. Abdomen/Pelvis CT 06/24/19 21:40 IMPRESSION: Relatively unremarkable appearance of the pancreas. Ascites with nodular appearance of the deep aspect of pelvic fluid and thickening of peritoneal reflections. Underlying peritonitis is not excluded. Nodular infiltrative appearance of omentum suggests the possibility of peritoneal carcinomatosis. Chest CT 06/25/19 00:00 IMPRESSION: Large posteriorly related and right pleural effusion with right lung compressive atelectasis. Assessment & Plan - Diagnosis (1) Acute pancreatitis Qualifiers: Pancreatitis type: unspecified pancreatitis type Acute pancreatitis complication: unspecified Qualified Code(s): K85.90 - Acute pancreatitis without necrosis or infection, unspecified Is this a current diagnosis for this admission?: Yes (2) UTI (urinary tract infection) Qualifiers: Urinary tract infection type: site unspecified Hematuria presence: with hematuria Qualified Code(s): N39.0 - Urinary tract infection, site not specified; R31.9 - Hematuria, unspecified Is this a current diagnosis for this admission?: Yes (3) Atelectasis of right lung Is this a current diagnosis for this admission?: Yes (4) Diabetes mellitus type 2 in obese Is this a current diagnosis for this admission?: Yes (5) HTN (hypertension) Qualifiers: Hypertension type: essential hypertension Qualified Code(s): I10 - E ssential (primary) hypertension Is this a current diagnosis for this admission?: Yes (6) Rheumatoid arthritis Qualifiers: Rheumatoid arthritis location: unspecified site Is this a current diagnosis for this admission?: Yes (7) Pleural effusion on right Is this a current diagnosis for this admission?: Yes - Time Time Spent with patient: 25-34 minutes Level of Care: IMCU Medications reviewed and adjusted accordingly: Yes Anticipated discharge: Home with Homehealth Within: Other - Inpatient Certification Based on my medical assessment, after consideration of the patient's comorbidities, presenting symptoms, or acuity I expect that the services needed warrant INPATIENT care.: Yes I certify that my determination is in accordance with my understanding of Medic are's requirements for reasonable and necessary INPATIENT services [42 CFR 412.3e].: Yes Medical Necessity: Significant Comorbidiites Make Outpatient Treatment Too Risky, Need Close Monitoring Due to Risk of Patient Decompensation, Need For IV Fluids, Need For Continuous Telemetry Monitoring, Need for Pain Control, Need for IV Antibiotics, Risk of Complication if Not Cared For in Hospital, Risk of Diagnosis Which Will Require Inpatient Eval/Care/Monitoring 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 Hopefully will start oral feeding alvaro rrow. Obtain pleural fluid cytology, cell count and chemistry evaluation for possible insight into her CT scan findings. Continue all other current medication management.
--- NOTE | 2019-06-27 21:08 | XCELERA REPORT ---
[address] [address] Transthoracic Echocardiogram Report Name: ENOC WASHINGTON Age: 59 yrs Gender: Female : 1960 Patient Status: Inpatient Patient Location: [address] [place] [address] Study Date: 06/27/2019 11:01 AM Height: 66 in Weight: 195 lb BSA: 2.0 m2 Procedure: A two-dimensional transthoracic echocardiogram with color flow and Doppler was performed. Study Quality: Poor. Reason For Study: EDEMA /PLEURAL EFFUSION /HTN History: EDEMA /PLEURAL EFFUSION /HTN. Ordering Physician: NICOLE LUIS Performed By: Carmen Granda Interpretation Summary No defenite regional wall motion abnormality.Normal LVEF 65% to 70%. No gross Thrombus.cannot assess ASD,VSD , or PFO. Not well seen.suspect at least mild RV enlargement ,mild RVH ,and probably mild;y reduced RVEF. Right atrium not well visualized secondary to technical limitations The left atrial size is normal. There is no evidence of mitral valve prolapse. There is no vegetation seen on the mitral valve. There is no mitral valve stenosis. There is a trace amount of mitral regurgitation There is no aortic valvular vegetation. There is no aortic valve stenosis There is aortic sclerosis without aortic stenosis. There is no LVOT obstruction. No aortic regurgitation is present. There is no tricuspid stenosis. Probably moderate TR and moderate to severe pulmonary hypertension.RVSP is 58 to 63 mm of Hg , with RA mean of 10 to 15. The aortic root is not well visualized. The inferior vena cava was not well visualized There is no pericardial effusion. MMode/2D Measurements & Calculations RVDd: 2.0 cm LVIDd: 4.2 cm FS: 39.4 % Ao root diam: 2.3 cm IVSd: 0.94 cm LVIDs: 2.6 cm EDV(Teich): 79.8 ml Ao root area: 4.3 cm2 LVPWd: 0.95 cm ESV(Teich): 23.7 ml LA dimension: 2.7 cm EF(Teich): 70.2 % Doppler Measurements & Calculations MV E max funmi: MV P1/2t max funmi: Ao V2 max: LV V1 max P.1 cm/sec 81.7 cm/sec 126.7 cm/sec 3.6 mmHg MV A max funmi: MV P1/2t: 51.1 msec Ao max P.4 mmHg LV V1 max: 96.7 cm/sec MVA(P1/2t): 4.3 cm2 94.8 cm/sec MV E/A: 0.74 MV dec slope: 467.7 cm/sec2 MV dec time: 0.23 sec PA V2 max: TR max funmi: MV P1/2t-pr_phl: 90.8 cm/sec 347.5 cm/sec 51.1 msec PA max PG: TR max P.3 mmHg 3.3 mmHg Left Ventricle The left ventricle is normal in size. There is normal left ventricular wall thickness. No defenite regional wall motion abnormality.Normal LVEF 65% to 70%. Doppler measurements suggest impaired left ventricular relaxation, which is associated with grade I/IV or mild diastolic dysfunction. No gross Thrombus.cannot assess ASD,VSD , or PFO. Right Ventricle Not well seen.suspect at least mild RV enlargement ,mild RVH ,and probably mild;y reduced RVEF. Atria Right atrium not well visualized secondary to technical limitations. The left atrial size is normal. Mitral Valve There is no evidence of mitral valve prolapse. There is no vegetation seen on the mitral valve. There is no mitral valve stenosis. There is a trace amount of mitral regurgitation. Aortic Valve There is no aortic valvular vegetation. There is no aortic valve stenosis. There is aortic sclerosis without aortic stenosis. There is no LVOT obstruction. No aortic regurgitation is present. Tricuspid Valve There is no tricuspid stenosis. Probably moderate TR and moderate to severe pulmonary hypertension.RVSP is 58 to 63 mm of Hg , with RA mean of 10 to 15. Pulmonic Valve There is no pulmonic valvular stenosis. There is a trace amount of pulmonic regurgitation. Great Vessels The aortic root is not well visualized. The inferior vena cava was not well visualized. Effusions There is no pericardial effusion. : NICOLE LUIS Lakshmi
[2019-06-27] MEDS: ZOLPIDEM TARTRATE 5 MG TABLET PO PRN (21:15)
[2019-06-28] MEDS: MORPHINE SULFATE 10 MG/ML INJ IV PRN ×4 (07:44→22:43)
[2019-06-28] MEDS: DEXTROSE 5%-NORMAL SALINE 1,000 ML IV PRN (09:41)
[2019-06-28] MEDS: FAMOTIDINE INJ/PF 20 MG/2 ML SDV IV SCH ×2 (09:45→21:26)
[2019-06-28] MEDS: CEFTRIAXONE 1 GM/D5W RTU 1 GM/50 ML RTUPB IV SCH (09:48)
--- NOTE | 2019-06-28 16:07 | PDOC PROGRESS REPORT ---
Subjective Progress Note for:: 06/28/19 Subjective:: Patient denied chest pain or difficulty with breathing. No fever or chills. No nausea, vomiting, or abdominal pain. Her serum Lipase remain about same with slight increase since last clinical evaluation. Reason For Visit: ACUTE PANCREATITIS,UTI,DIABETES MELLITUS TYPE 2 Physical Exam Vital Signs: Temp Pulse Resp BP Pulse Ox 97.9 F 85 16 123/68 97 06/28/19 11:50 06/28/19 14:00 06/28/19 11:50 06/28/19 11:50 06/28/19 11:50 Intake & Output 06/27/19 06/28/19 06/29/19 06:59 06:59 06:59 Intake Total 1050 1200 1050 Balance 1050 1200 1050 Weight 88.7 kg 93.7 kg Physical Exam: General appearance: PRESENT: no acute distress, obese Head exam: PRESENT: atraumatic, normocephalic Eye exam: PRESENT: conjunctiva pink. ABSENT: pallor, scleral icterus Ear exam: PRESENT: normal external ear exam Mouth exam: PRESENT: moist Respiratory exam: PRESENT: clear to auscultation clark, decreased breath sounds - at lung bases Cardiovascular exam: PRESENT: RRR, +S1, +S2. ABSENT: diastolic murmur, rubs, systolic murmur GI/Abdominal exam: PRESENT: normal bowel sounds, soft. ABSENT: distended, guarding, mass, organomegaly, rebound, tenderness Extremities exam: PRESENT: pedal edema - bilateral pitting edema to mid calf Musculoskeletal exam: PRESENT: ambulatory Neurological exam: PRESENT: alert, awake, oriented to person, oriented to place, oriented to time, oriented to situation, CN II-XII grossly intact. ABSENT: m otor sensory deficit Psychiatric exam: PRESENT: appropriate affect, normal mood. ABSENT: homicidal ideation, suicidal ideation Skin exam: PRESENT: dry, warm, other - resolving ecchymosis over right anterior chest wall and left medial thigh region. Results Laboratory Results: 06/27/19 04:07 06/27/19 04:07 06/27/19 06/28/19 15:45 05:37 Lipase 638.2 H Fluid Type PLEURAL Fluid Source LUNG Fluid Color RED Fluid Appearance CLOUDY Fluid Viscosity SLIGHTLY VISCOUS Fluid WBC 1597 Fluid RBC 94943 06/24/19 06/24/19 06/27/19 20:35 20:35 04:07 Creatine Kinase < 20 L Troponin I 0.054 NT-Pro-B Natriuret Pep 552 H 265 H Impressions: Abdomen/Pelvis CT 06/24/19 21:40 IMPRESSION: Relatively unremarkable appearance of the pancreas. Ascites with nodular appearance of the deep aspect of pelvic fluid and thickening of peritoneal reflections. Underlying peritonitis is not excluded. Nodular infiltrative appearance of omentum suggests the possibility of peritoneal carcinomatosis. Chest CT 06/25/19 00:00 IMPRESSION: Large posteriorly related and right pleural effusion with right lung compressive atelectasis. Thoracentesis Ultrasound 06/27/19 00:00 IMPRESSION: SUCCESSFUL DIAGNOSTIC AND THERAPEUTIC THORACENTESIS USING ULTRASOUND GUIDANCE. Chest X-Ray 06/27/19 18:00 IMPRESSION: NO PNEUMOTHORAX 2 HOURS AFTER THORACENTESIS. Assessment & Plan - Diagnosis (1) Acute pancreatitis Qualifiers: Pancreatitis type: unspecified pancreatitis type Acute pancreatitis complication: unspecified Qualified Code(s): K85.90 - Acute pancreatitis without necrosis or infection, unspecified Is this a current diagnosis for this admission?: Yes (2) UTI (urinary tract infection) Qualifiers: Urinary tract infection type: site unspecified Hematuria presence: with hematuria Qualified Code(s): N39.0 - Urinary tract infection, site not specified; R31.9 - Hematuria, unspecified Is this a current diagnosis for this admission?: Yes (3) Atelectasis of right lung Is this a current diagnosis for this admission?: Yes (4) Diabetes mellitus type 2 in obese Is this a current diagnosis for this admission?: Yes (5) HTN (hypertension) Qualifiers: Hypertension type: essential hypertension Qualified Code(s): I10 - Essential (primary) hypertension Is this a current diagnosis for this admission?: Yes (6) Rheumatoid arthritis Qualifiers: Rheumatoid arthritis location: unspecified site Is this a current diagnosis for this admission?: Yes (7) Pleural effusion on right Is this a current diagnosis for this admission?: Yes (8) Acute right-sided CHF (congestive heart failure) Is this a current diagnosis for this admission?: Yes Plan: Continue current medication management. (9) Pulmonary arterial hypertension Is this a current diagnosis for this admission?: Yes Plan: Continue current medication management. - Time Time Spent with patient: 25-34 minutes Level of Care: IMCU Medications reviewed and adjusted accordingly: Yes Anticipated discharge: Home with Homehealth Within: Other - Inpatient Certification Based on my medical assessment, after consideration of the patient's comorbidities, presenting symptoms, or acuity I expect that the services needed warrant INPATIENT care.: Yes I certify that my determination is in accordance with my understanding of Medicare's requirements for reasonable and necessary INPATIENT services [42 CFR 412.3e].: Yes Medical Necessity: Significant Comorbidiites Make Outpatient Treatment Too Risky, Need Close Monitoring Due to Risk of Patient Decompensation, Need For IV Fluids, Need For Continuous Telemetry Monitoring, Need for Pain Control, Need for IV Antibiotics, Risk of Complication if Not Cared For in Hospital, Risk of Diagnosis Which Will Require Inpatient Eval/Care/Monitoring 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 Follow up on pleural fluid analysis and cytology findings.
[2019-06-29] MEDS: DEXTROSE 5%-NORMAL SALINE 1,000 ML IV PRN ×2 (01:50→13:54)
[2019-06-29] MEDS: MORPHINE SULFATE 10 MG/ML INJ IV PRN ×3 (08:21→21:44)
[2019-06-29] MEDS: CEFTRIAXONE 1 GM/D5W RTU 1 GM/50 ML RTUPB IV SCH (09:14)
[2019-06-29] MEDS: FAMOTIDINE INJ/PF 20 MG/2 ML SDV IV SCH ×2 (09:15→21:44)
--- NOTE | 2019-06-29 10:01 | PDOC PROGRESS REPORT ---
Subjective Progress Note for:: 06/29/19 Subjective:: Patient denied chest pain or difficulty with breathing. No fever or chills. No nausea, vomiting, or abdominal pain. Leg swelling is worsening. Remain on IV fluid support. Reason For Visit: ACUTE PANCREATITIS,UTI,DIABETES MELLITUS TYPE 2 Physical Exam Vital Signs: Temp Pulse Resp BP Pulse Ox 97.9 F 98 16 118/62 97 06/29/19 07:16 06/29/19 07:16 06/29/19 07:16 06/29/19 07:16 06/29/19 07:16 Intake & Output 06/28/19 06/29/19 06/30/19 06:59 06:59 06:59 Intake Total 1200 2049 Balance 1200 2049 Weight 93.7 kg 95.4 kg Physical Exam: General appearance: PRESENT: no acute distress, obese Head exam: PRESENT: atraumatic, normocephalic Eye exam: PRESENT: conjunctiva pink. ABSENT: pallor, scleral icterus Ear exam: PRESENT: normal external ear exam Mouth exam: PRESENT: moist Respiratory exam: PRESENT: clear to auscultation clark, decreased breath sounds - at lung bases Cardiovascular exam: PRESENT: RRR, +S1, +S2. ABSENT: diastolic murmur, rubs, systolic murmur GI/Abdominal exam: PRESENT: normal bowel sounds, soft. ABSENT: distended, guarding, mass, organomegaly, rebound, tenderness Extremities exam: PRESENT: pedal edema - bilateral pitting edema. Musculoskeletal exam: PRESENT: ambulatory Neurological exam: PRESENT: alert, awake, oriented to person, oriented to place, oriented to time, oriented to situation, CN II-XII grossly intact. ABSENT: motor sensory deficit Psychiatric exam: PRESENT: appropriate affect, normal mood. ABSENT: homicidal ideation, suicidal ideation Skin exam: PRESENT: dry, warm, other - resolving ecchymosis over right anterior chest wall and left medial thigh region. Results Laboratory Results: 06/27/19 04:07 06/27/19 04:07 06/29/19 05:35 Lipase 411.3 H 06/24/19 06/24/19 06/27/19 20:35 20:35 04:07 Creatine Kinase < 20 L Troponin I 0.054 NT-Pro-B Natriuret Pep 552 H 265 H Impressions: Abdomen/Pelvis CT 06/24/19 21:40 IMPRESSION: Relatively unremarkable appearance of the pancreas. Ascites with nodular appearance of the deep aspect of pelvic fluid and thickening of peritoneal reflections. Underlying peritonitis is not excluded. Nodular infiltrative appearance of omentum suggests the possibility of peritoneal carcinomatosis. Chest CT 06/25/19 00:00 IMPRESSION: Large posteriorly related and right pleural effusion with right lung compressive atelectasis. Thoracentesis Ultrasound 06/27/19 00:00 IMPRESSION: SUCCESSFUL DIAGNOSTIC AND THERAPEUTIC THORACENTESIS USING ULTRASOUND GUIDANCE. Chest X-Ray 06/27/19 18:00 IMPRESSION: NO PNEUMOTHORAX 2 HOURS AFTER THORACENTESIS. Assessment & Plan - Diagnosis (1) Acute pancreatitis Qualifiers: Pancreatitis type: unspecified pancreatitis type Acute pancreatitis complication: unspecified Qualified Code(s): K85.90 - Acute pancreatitis without necrosis or infection, unspecified Is this a current diagnosis for this admission?: Yes (2) UTI (urinary tract infection) Qualifiers: Urinary tract infection type: site unspecified Hematuria presence: with h ematuria Qualified Code(s): N39.0 - Urinary tract infection, site not spe cified; R31.9 - Hematuria, unspecified Is this a current diagnosis for this admission?: Yes (3) Atelectasis of right lung Is this a current diagnosis for this admission?: Yes (4) Diabetes mellitus type 2 in obese Is this a current diagnosis for this admission?: Yes (5) HTN (hypertension) Qualifiers: Hypertension type: essential hypertension Qualified Code(s): I10 - Essential (primary) hypertension Is this a current diagnosis for this admission?: Yes (6) Rheumatoid arthritis Qualifiers: Rheumatoid arthritis location: unspecified site Is this a current diagnosis for this admission?: Yes (7) Pleural effusion on right Is this a current diagnosis for this admission?: Yes (8) Acute right-sided CHF (congestive heart failure) Is this a current diagnosis for this admission?: Yes (9) Pulmonary arterial hypertension Is this a current diagnosis for this admission?: Yes - Time Time Spent with patient: 25-34 minutes Level of Care: IMCU Medications reviewed and adjusted accordingly: Yes Anticipated discharge: Home with Homehealth Within: Other - Inpatient Certification Based on my medical assessment, after consideration of the patient's comorbidities, presenting symptoms, or acuity I expect that the services needed warrant INPATIENT care.: Yes I certify that my determination is in accordance with my understanding of Medicare's requirements for reasonable and necessary INPATIENT services [42 CFR 412.3e].: Yes Medical Necessity: Significant Comorbidiites Make Outpatient Treatment Too Risky, Need Close Monitoring Due to Risk of Patient Decompensation, Need For IV Fluids, Need For Continuous Telemetry Monitoring, Need for Pain Control, Need for IV Antibiotics, Risk of Complication if Not Cared For in Hospital, Risk of Diagnosis Which Will Require Inpatient Eval/Care/Monitoring 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 IV Lasix 40 mg x 1 dose. Continue on NPO status. Maintain on all other current medication management.
[2019-06-29] MEDS ORDERED: FUROSEMIDE INJ/PF 40 MG/4 ML SDV IV ONE (10:02)
[2019-06-29] MEDS: POTASSI CL 20 MEQ/50 ML RIDER 20 MEQ/50 ML RTUPB IV SCH ×3 (11:39→16:25)
[2019-06-29 11:46] LABS: AMYLASE BODY FLUID 22 U/L (.); TOTAL PROTEIN BODY FLUID 4.1 g/dL (.)
[2019-06-29] MEDS: ZOLPIDEM TARTRATE 5 MG TABLET PO PRN (21:45)
[2019-06-30 06:39] LABS: ABSOLUTE BASOPHILS # (AUTO) 0.2 10^3/uL (0.0-0.2); ABSOLUTE EOSINOPHILS # (AUTO) 0.4 10^3/uL (0.0-0.6); ABSOLUTE MONOCYTES (AUTO) 1.1 10^3/uL (0.1-1.4); ABSOLUTE NEUT (AUTO) 7.6 10^3/uL (1.7-8.2); BASOPHILS % (AUTO) 1.6 % (0-2); EOSINOPHILS % (AUTO) 3.6 % (0-6); HEMATOCRIT 35.5 % (36.0-47.0); HEMOGLOBIN 11.9 g/dL (12.0-15.5); LYMPHOCYTES % (AUTO) 9.7 % (13-45); MEAN CORPUSCULAR HEMOGLOBIN 27.2 pg (27.0-33.4); MEAN CORPUSCULAR HGB CONC 33.5 g/dL (32.0-36.0); MEAN CORPUSCULAR VOLUME 81 fl (80-97); MONOCYTES % (AUTO) 10.8 % (3-13); PLATELET COUNT 396 10^3/uL (150-450); RED BLOOD COUNT 4.38 10^6/uL (3.72-5.28); RED CELL DISTRIBUTION WIDTH 14.2 % (11.5-14.0); SEGMENTED NEUTROPHILS % (AUTO) 74.3 % (42-78); TOTAL CELLS COUNTED % (AUTO) 100 %; WHITE BLOOD COUNT 10.2 10^3/uL (4.0-10.5)
[2019-06-30 06:44] LABS: ALBUMIN 2.9 g/dL (3.5-5.0); ALKALINE PHOSPHATASE 139 U/L (38-126); ANION GAP 12 (5-19); ASPARTATE AMINO TRANSFERASE 13 U/L (14-36); BILIRUBIN,DIRECT 0.1 mg/dL (0.0-0.4); BILIRUBIN,TOTAL 0.4 mg/dL (0.2-1.3); BLOOD UREA NITROGEN 7 mg/dL (7-20); CALCIUM 8.5 mg/dL (8.4-10.2); CARBON DIOXIDE 18 mmol/L (22-30); CHLORIDE 104 mmol/L (98-107); GLUCOSE 164 mg/dL (75-110); POTASSIUM 4.2 mmol/L (3.6-5.0); TOTAL PROTEIN 5.9 g/dL (6.3-8.2)
[2019-06-30] MEDS: DEXTROSE 5%-NORMAL SALINE 1,000 ML IV PRN (07:46)
[2019-06-30] MEDS: MORPHINE SULFATE 10 MG/ML INJ IV PRN ×3 (09:42→20:00)
[2019-06-30] MEDS: CEFTRIAXONE 1 GM/D5W RTU 1 GM/50 ML RTUPB IV SCH (09:42)
[2019-06-30] MEDS: FAMOTIDINE INJ/PF 20 MG/2 ML SDV IV SCH ×2 (09:44→21:29)
--- NOTE | 2019-06-30 12:15 | PDOC PROGRESS REPORT ---
Subjective Progress Note for:: 06/30/19 Subjective:: Patient denied any chest pain or difficulty with breathing. No fever or chills. No nausea, vomiting, or abdominal pain. She reported satisfactory urine output with IV Lasix. Reason For Visit: ACUTE PANCREATITIS,UTI,DIABETES MELLITUS TYPE 2 Physical Exam Vital Signs: Temp Pulse Resp BP Pulse Ox 97.3 F 104 H 12 120/60 97 06/30/19 08:06 06/30/19 08:06 06/30/19 08:06 06/30/19 08:06 06/30/19 08:06 Intake & Output 06/29/19 06/30/19 07/01/19 06:59 06:59 06:59 Intake Total 2049 1200 536 Balance 2049 1200 536 Weight 95.4 kg 92.2 kg Physical Exam: General appearance: PRESENT: no acute distress, obese Head exam: PRESENT: atraumatic, normocephalic Eye exam: PRESENT: conjunctiva pink. ABSENT: pallor, scleral icterus Ear exam: PRESENT: normal external ear exam Mouth exam: PRESENT: moist Respiratory exam: PRESENT: clear to auscultation clark, decreased breath sounds - at lung bases Cardiovascular exam: PRESENT: RRR, +S1, +S2. ABSENT: diastolic murmur, rubs, systolic murmur GI/Abdominal exam: PRESENT: normal bowel sounds, soft. ABSENT: distended, guarding, mass, organomegaly, rebound, tenderness Extremities exam: PRESENT: pedal edema - bilateral pitting edema. Musculoskeletal exam: PRESENT: ambulatory Neurological exam: PRESENT: alert, awake, oriented to person, oriented to place, oriented to time, oriented to situation, CN II-XII grossly intact. ABSENT: motor sensory deficit Psychiatric exam: PRESENT: appropriate affect, normal mood. ABSENT: homicidal ideation, suicidal ideation Skin exam: PRESENT: dry, warm, other - resolving ecchymosis over right anterior chest wall and left medial thigh region. Results Laboratory Results: 06/30/19 05:13 06/30/19 05:13 06/30/19 06/30/19 05:13 05:13 WBC 10.2 RBC 4.38 Hgb 11.9 L Hct 35.5 L MCV 81 MCH 27.2 MCHC 33.5 RDW 14.2 H Plt Count 396 Seg Neutrophils % 74.3 Sodium 134.0 L Potassium 4.2 Chloride 104 Carbon Dioxide 18 L Anion Gap 12 BUN 7 Creatinine 0.46 L Est GFR ( Amer) > 60 Glucose 164 H Calcium 8.5 Total Bilirubin 0.4 AST 13 L Alkaline Phosphatase 139 H Total Protein 5.9 L Albumin 2.9 L Lipase 300.2 H 06/24/19 06/24/19 06/27/19 20:35 20:35 04:07 Creatine Kinase < 20 L Troponin I 0.054 NT-Pro-B Natriuret Pep 552 H 265 H Impressions: Abdomen/Pelvis CT 06/24/19 21:40 IMPRESSION: Relatively unremarkable appearance of the pancreas. Ascites with nodular appearance of the deep aspect of pelvic fluid and thickening of peritoneal reflections. Underlying peritonitis is not excluded. Nodular infiltrative appearance of omentum suggests the possibility of peritoneal carcinomatosis. Chest CT 06/25/19 00:00 IMPRESSION: Large posteriorly related and right pleural effusion with right lung compressive atelectasis. Thoracentesis Ultrasound 06/27/19 00:00 IMPRESSION: SUCCESSFUL DIAGNOSTIC AND THERAPEUTIC THORACENTESIS USING ULTRASOUND GUIDANCE. Chest X-Ray 06/27/19 18:00 IMPRESSION: NO PNEUMOTHORAX 2 HOURS AFTER THORACENTESIS. Assessment & Plan - Diagnosis (1) Acute pancreatitis Qualifiers: Pancreatitis type: unspecified pancreatitis type Acute pancreatitis complication: unspecified Qualified Code(s): K85.90 - Acute pancreatitis without necrosis or infection, unspecified Is this a current diagnosis for this admission?: Yes Plan: Start on clear liquid diet. (2) UTI (urinary tract infection) Qualifiers: Urinary tract infection type: site unspecified Hematuria presence: with hematuria Qualified Code(s): N39.0 - Urinary tract infection, site not specified; R31.9 - Hematuria, unspecified Is this a current diagnosis for this admission?: Yes (3) Atelectasis of right lung Is this a current diagnosis for this admission?: Yes (4) Diabetes mellitus type 2 in obese Is this a current diagnosis for this admission?: Yes (5) HTN (hypertension) Qualifiers: Hypertension type: essential hypertension Qualified Code(s): I10 - Ess ential (primary) hypertension Is this a current diagnosis for this admission?: Yes (6) Rheumatoid arthritis Qualifiers: Rheumatoid arthritis location: unspecified site Is this a current diagnosis for this admission?: Yes (7) Pleural effusion on right Is this a current diagnosis for this admission?: Yes (8) Acute right-sided CHF (congestive heart failure) Is this a current diagnosis for this admission?: Yes Plan: D/C IV fluid and start on fluid restriction to 1200 ml/day. IV Lasix 40 mg daily. (9) Pulmonary arterial hypertension Is this a current diagnosis for this admission?: Yes (10) Primary cancer of unknown site and cell type Is this a current diagnosis for this admission?: Yes Plan: Obtain pelvic ultrasound for better evaluation of her ovaries based on her stain study report. Obtain oncology consult with Dr. Betts for further input. I discussed findings with patient and spouse at bedside. She is agreeable with care plan. - Time Time Spent with patient: 25-34 minutes Level of Care: IMCU Medications reviewed and adjusted accordingly: Yes Anticipated discharge: Home with Homehealth Within: Other - Inpatient Certification Based on my medical assessment, after consideration of the patient's comorbidities, presenting symptoms, or acuity I expect that the services needed warrant INPATIENT care.: Yes I certify that my determination is in accordance with my understanding of Medicare's requirements for reasonable and necessary INPATIENT services [42 CFR 412.3e].: Yes Medical Necessity: Significant Comorbidiites Make Outpatient Treatment Too Risky, Need Close Monitoring Due to Risk of Patient Decompensation, Need For Continuous Telemetry Monitoring, Need for IV Antibiotics, Risk of Complication if Not Cared For in Hospital, Risk of Diagnosis Which Will Require Inpatient Eval/Care/Monitoring Post Hospital Care: D/C Internal Combustion 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
--- NOTE | 2019-06-30 13:39 | RADIOLOGY REPORT (SQ) ---
EXAM DESCRIPTION: U/S NON OB PEL TV W/DOPPLER COMPLETED DATE/TIME: 06/30/2019 1:23 pm REASON FOR STUDY: Atypical cells on stain study report. ? malignancy COMPARISON: None. TECHNIQUE: Dynamic and static grayscale images acquired of the pelvis via transabdominal and transva ginal approach and recorded on PACS. Additional selected color Doppler and spectral images recorded. LIMITATIONS: Extremely limited examination secondary to bowel gas and body habitus. FINDINGS: UTERUS: Limited evaluation is grossly unremarkable with no definite mass lesion identified . ENDOMETRIAL STRIPE: No focal or generalized thickening. No masses. CERVIX: No nabothian cysts. RIGHT OVARY AND DOPPLER: Ovary not visualized. LEFT OVARY AND DOPPLER: Ovary not visualized. FREE FLUID: There is a moderate amount of free fluid within the pelvis OTHER: No other significant finding. MEASUREMENTS: UTERUS: 9.8 x 6.4 x 6.2 cm ENDOMETRIAL STRIPE: 2 mm RIGHT OVARY: Not visualized. LEFT OVARY: Not visualized. IMPRESSION: Limited pelvic ultrasound due to bowel gas and body habitus. No definite abnormalities noted in the uterus. The ovaries and adnexae are not well evaluated. Consider pelvic MRI or CT if f urther evaluate if clinically indicated. TECHNICAL DOCUMENTATION: JOB ID: [id number] 2010 [employer]- All Rights Reserved Reading location - IP/workstation name: [email or web address]
[2019-06-30] MEDS: FUROSEMIDE INJ/PF 40 MG/4 ML SDV IV SCH (14:39)
[2019-06-30] MEDS: ZOLPIDEM TARTRATE 5 MG TABLET PO PRN (21:30)
[2019-07-01 06:28] LABS: ALKALINE PHOSPHATASE 122 U/L (38-126); ANION GAP 8 (5-19); ASPARTATE AMINO TRANSFERASE 20 U/L (14-36); BILIRUBIN,DIRECT 0.5 mg/dL (0.0-0.4); BILIRUBIN,TOTAL 0.6 mg/dL (0.2-1.3); BLOOD UREA NITROGEN 10 mg/dL (7-20); CALCIUM 8.5 mg/dL (8.4-10.2); CARBON DIOXIDE 25 mmol/L (22-30); CHLORIDE 101 mmol/L (98-107); GLUCOSE 164 mg/dL (75-110); POTASSIUM 4.3 mmol/L (3.6-5.0); TOTAL PROTEIN 6.4 g/dL (6.3-8.2)
[2019-07-01 06:36] LABS: ABSOLUTE BASOPHILS # (AUTO) 0.2 10^3/uL (0.0-0.2); ABSOLUTE EOSINOPHILS # (AUTO) 0.3 10^3/uL (0.0-0.6); ABSOLUTE MONOCYTES (AUTO) 1.1 10^3/uL (0.1-1.4); ABSOLUTE NEUT (AUTO) 8.2 10^3/uL (1.7-8.2); BASOPHILS % (AUTO) 2.3 % (0-2); EOSINOPHILS % (AUTO) 2.5 % (0-6); HEMOGLOBIN 11.9 g/dL (12.0-15.5); LYMPHOCYTES % (AUTO) 9.1 % (13-45); MEAN CORPUSCULAR HEMOGLOBIN 27.3 pg (27.0-33.4); MEAN CORPUSCULAR HGB CONC 33.9 g/dL (32.0-36.0); MEAN CORPUSCULAR VOLUME 81 fl (80-97); MONOCYTES % (AUTO) 10.3 % (3-13); PLATELET COUNT 318 10^3/uL (150-450); RED BLOOD COUNT 4.34 10^6/uL (3.72-5.28); RED CELL DISTRIBUTION WIDTH 14.5 % (11.5-14.0); SEGMENTED NEUTROPHILS % (AUTO) 75.8 % (42-78); TOTAL CELLS COUNTED % (AUTO) 100 %; WHITE BLOOD COUNT 10.9 10^3/uL (4.0-10.5)
[2019-07-01] MEDS: FAMOTIDINE INJ/PF 20 MG/2 ML SDV IV SCH ×2 (09:24→21:25)
[2019-07-01] MEDS: FUROSEMIDE INJ/PF 40 MG/4 ML SDV IV SCH (09:24)
[2019-07-01] MEDS: CEFTRIAXONE 1 GM/D5W RTU 1 GM/50 ML RTUPB IV SCH (10:18)
[2019-07-01] MEDS: MORPHINE SULFATE 10 MG/ML INJ IV PRN ×3 (10:18→19:40)
[2019-07-01] MEDS ORDERED: POLYETHYLENE GLYCOL 3350 POWDER 17 GM/1 PACKET PO PRN (11:35)
--- NOTE | 2019-07-01 11:47 | PDOC CONSULTATION ---
Consultation Consult Date: 07/01/19 Attending physician:: NICOLE LUIS Provider Consulted: KATELYNN GARCIA Consult reason:: Newly noted pleural effusion, ascites and omental caking History of Present Illness Admission Date/PCP: 06/25/19 03:01 NICOLE LUIS Patient complains of: Nausea and vomiting, weight loss, shortness of breath History of Present Illness: ENOC WASHINGTON is a 59 year old female with known history of diabetes, hyperc holesterolemia but presents with a 3 to 4-month history of poor appetite, decreased p.o. intake, weight loss of about 20 to 25 pounds, increasing nausea and vomiting, increasing shortness of breath. Ultimately, she was admitted because of these issues. She had CT of the chest abdomen pelvis done which indicated omental caking, ascites, pleural effusion. She had cardiac work-up with echocardiogram, indicated normal EF. Ultimately patient had thoracentesis, and we are consulted once cytology came back, they were atypical cells suspicious of carcinoma, I discussed the case with pathology who notes that there was not enough cells to exactly know where it is coming from. She does not have significant family history of cancer. She is never had a cancer diagnosis herself. Past Medical History Cardiac Medical History: Reports: Hypertension Endocrine Medical History: Reports: Diabetes Mellitus Type 2 Musculoskeltal Medical History: Reports: Arthritis - RA Past Surgical History Past Surgical History: Reports: Cholecystectomy Social History Information Source: Patient Lives with: Family Smoking Status: Current Every Day Smoker Cigarettes Packs Per Day: 0.5 Electronic Cigarette use?: No Number of Years Smokin Last Time Smoked: 3/5 Frequency of Alcohol Use: None Hx Recreational Drug Use: No Hx Prescription Drug Abuse: No - Advance Directive Resuscitation Status: Full Code Family History Family History: Reviewed & Not Pertinent Parental Family History Reviewed: Yes Children Family History Reviewed: Yes Sibling(s) Family History Reviewed.: Yes Medication/Allergy Home Medications: Duloxetine HCl [Cymbalta] 60 mg PO DAILY 06/25/19 Folic Acid [Folvite 1 mg Tablet] 1 mg PO DAILY 06/25/19 Lisinopril [Prinivil] 20 mg PO DAILY 06/25/19 Meloxicam [Mobic] 7.5 mg PO DAILY 06/25/19 Metformin HCl [Glucophage 500 mg Tablet] 500 mg PO BID 06/25/19 Methotrexate Sodium [Rheumatrex 2.5 mg Tablet] 12.5 mg PO WE@1000 06/25/19 Allergies/Adverse Reactions: No Known Allergies Allergy (Verified 10/07/16 09:57) Review of Systems Constitutional: ABSENT: chills, fever(s), headache(s), weight gain, weight loss Eyes: ABSENT: visual disturbances Ears: ABSENT: hearing changes Cardiovascular: ABSENT: chest pain, dyspnea on exertion, edema, orthropnea, palpitations Respiratory: ABSENT: cough, hemoptysis Gastrointestinal: ABSENT: abdominal pain, constipation, diarrhea, hematemesis, hematochezia, nausea, vomiting Genitourinary: ABSENT: dysuria, hematuria Musculoskeletal: ABSENT: joint swelling Integumentary: ABSENT: rash, wounds Neurological: ABSENT: abnormal gait, abnormal speech, confusion, dizziness, focal weakness, syncope Psychiatric: ABSENT: anxiety, depression, homidical ideation, suicidal ideation Endocrine: ABSENT: cold intolerance, heat intolerance, polydipsia, polyuria Hematologic/Lymphatic: ABSENT: easy bleeding, easy bruising Physical Exam Vital Signs: Temp Pulse Resp BP Pulse Ox 98.4 F 103 H 18 118/63 96 07/01/19 08:01 07/01/19 08:01 07/01/19 08:01 07/01/19 08:01 07/01/19 08:01 Intake & Output 06/30/19 07/01/19 07/02/19 06:59 06:59 06:59 Intake Total 1200 1324 Balance 1200 1324 Weight 92.2 kg 88.9 kg General appearance: PRESENT: no acute distress, well-developed, well-nourished Head exam: PRESENT: atraumatic, normocephalic Eye exam: PRESENT: conjunctiva pink, EOMI, PERRLA. ABSENT: scleral icterus Ear exam: PRESENT: normal external ear exam Mouth exam: PRESENT: moist, tongue midline Neck exam: ABSENT: carotid bruit, JVD, lymphadenopathy, thyromegaly Respiratory exam: PRESENT: clear to auscultation clark. ABSENT: rales, rhonchi, wheezes Cardiovascular exam: PRESENT: RRR. ABSENT: diastolic murmur, rubs, systolic murmur Pulses: PRESENT: normal dorsalis pedis pul Vascular exam: PRESENT: normal capillary refill GI/Abdominal exam: PRESENT: normal bowel sounds, soft. ABSENT: distended, guarding, mass, organolmegaly, rebound, tenderness Rectal exam: PRESENT: deferred Extremities exam: PRESENT: full ROM. ABSENT: calf tenderness, clubbing, pedal edema Neurological exam: PRESENT: alert, awake, oriented to person, oriented to place, oriented to time, oriented to situation, CN II-XII grossly intact. ABSENT: motor sensory deficit Psychiatric exam: PRESENT: appropriate affect, normal mood. ABSENT: homicidal ideation, suicidal ideation Skin exam: PRESENT: dry, intact, warm. ABSENT: cyanosis, rash Results Laboratory Results: 07/01/19 05:55 07/01/19 05:55 07/01/19 07/01/19 05:55 05:55 WBC 10.9 H RBC 4.34 Hgb 11.9 L Hct 35.0 L MCV 81 MCH 27.3 MCHC 33.9 RDW 14.5 H Plt Count 318 Seg Neutrophils % 75.8 Sodium 134.4 L Potassium 4.3 Chloride 101 Carbon Dioxide 25 Anion Gap 8 BUN 10 Creatinine 0.49 L Est GFR ( Amer) > 60 Glucose 164 H Calcium 8.5 Total Bilirubin 0.6 AST 20 Alkaline Phosphatase 122 Total Protein 6.4 Albumin 3.0 L Lipase 190.1 06/25/19 13:27 Blood Blood Culture - Final NO GROWTH IN 5 DAYS 06/24/19 23:22 Blood Blood Culture - Final NO GROWTH IN 5 DAYS 06/24/19 06/24/19 06/27/19 20:35 20:35 04:07 Creatine Kinase < 20 L Troponin I 0.054 NT-Pro-B Natriuret Pep 552 H 265 H Impressions: Abdomen/Pelvis CT 06/24/19 21:40 IMPRESSION: Relatively unremarkable appearance of the pancreas. Ascites with nodular appearance of the deep aspect of pelvic fluid and thickening of peritoneal reflections. Underlying peritonitis is not excluded. Nodular infiltrative appearance of omentum suggests the possibility of peritoneal carcinomatosis. Chest CT 06/25/19 00:00 IMPRESSION: Large posteriorly related and right pleural effusion with right lung compressive atelectasis. Thoracentesis Ultrasound 06/27/19 00:00 IMPRESSION: SUCCESSFUL DIAGNOSTIC AND THERAPEUTIC THORACENTESIS USING ULTRASOUND GUIDANCE. Chest X-Ray 06/27/19 18:00 IMPRESSION: NO PNEUMOTHORAX 2 HOURS AFTER THORACENTESIS. Transvaginal US 06/30/19 00:00 IMPRESSION: Limited pelvic ultrasound due to bowel gas and body habitus. No definite abnormalities noted in the uterus. The ovaries and adnexae are not well evaluated. Consider pelvic MRI or CT if further evaluate if clinically indicated. Status: Image reviewed by me Assessment & Plan - Diagnosis (1) Primary cancer of unknown site and cell type Is this a current diagnosis for this admission?: Yes Plan: Patient with omental caking as well as pleural effusion that is malignant, CA-19-9 and Ca1 25 pending, CEA is normal. Discussed case with DISTILLATION OPERATOR HELPER oncology, Dr. Monzon, in [place] as well as radiology here. Next step will be ultrasound-guided paracentesis, at the time of ultrasound guidance, if omental biopsy is possible, this will be done. We do have interventional radiology, Dr. cuevas who is here on Wednesday. I will discuss with them on Wednesday morning as well. Made her n.p.o. after midnight Wednesday. For now, I have advanced her diet to full liquids thereafter diabetic diet to see how she tolerates food. Ultimately, if we are able to get a diagnosis of carcinoma of likely DIST[employer]ATION OPERATOR HELPER origin, we would consider giving her a neoadjuvant chemotherapy approach followed by [employer] OPERATOR HELPER oncology surgical referral. (2) Malignant ascites Is this a current diagnosis for this admission?: Yes Plan: Plan as above (3) Malignant pleural effusion Is this a current diagnosis for this admission?: Yes Plan: Status post thoracentesis, plan as above - Time Time Spent: Greater than 70 Minutes - Inpatient Certification Based on my medical assessment, after consideration of the patient's comorbidities, presenting symptoms, or acuity I expect that the services needed warrant INPATIENT care.: Yes I certify that my determination is in accordance with my understanding of Medicare's requirements for reasonable and necessary INPATIENT services [42 CFR 412.3e].: Yes Medical Necessity: Need for Surgery, Risk of Complication if Not Cared For in Hospital
--- NOTE | 2019-07-01 14:11 | PDOC PROGRESS REPORT ---
Subjective Progress Note for:: 07/01/19 Subjective:: Patient with carcinomatosis, malignant pleural effusion, seen by the bedside scheduled for abdominal paracentesis no new complaints Reason For Visit: ACUTE PANCREATITIS,UTI,DIABETES MELLITUS TYPE 2 Physical Exam Vital Signs: Temp Pulse Resp BP Pulse Ox 98.4 F 103 H 18 118/63 96 07/01/19 08:01 07/01/19 08:01 07/01/19 08:01 07/01/19 08:01 07/01/19 08:01 Intake & Output 06/30/19 07/01/19 07/02/19 06:59 06:59 06:59 Intake Total 1200 1324 50 Balance 1200 1324 50 Weight 92.2 kg 88.9 kg General appearance: PRESENT: no acute distress Eye exam: PRESENT: PERRLA Respiratory exam: PRESENT: clear to auscultation clark Cardiovascular exam: PRESENT: +S1, +S2 GI/Abdominal exam: PRESENT: distended Neurological exam: PRESENT: alert Results Laboratory Results: 07/01/19 05:55 07/01/19 05:55 07/01/19 07/01/19 05:55 05:55 WBC 10.9 H RBC 4.34 Hgb 11.9 L Hct 35.0 L MCV 81 MCH 27.3 MCHC 33.9 RDW 14.5 H Plt Count 318 Seg Neutrophils % 75.8 Sodium 134.4 L Potassium 4.3 Chloride 101 Carbon Dioxide 25 Anion Gap 8 BUN 10 Creatinine 0.49 L Est GFR ( Amer) > 60 Glucose 164 H Calcium 8.5 Total Bilirubin 0.6 AST 20 Alkaline Phosphatase 122 Total Protein 6.4 Albumin 3.0 L Lipase 190.1 06/25/19 13:27 Blood Blood Culture - Final NO GROWTH IN 5 DAYS 06/24/19 23:22 Blood Blood Culture - Final NO GROWTH IN 5 DAYS 06/24/19 06/24/19 06/27/19 20:35 20:35 04:07 Creatine Kinase < 20 L Troponin I 0.054 NT-Pro-B Natriuret Pep 552 H 265 H Impressions: Abdomen/Pelvis CT 06/24/19 21:40 IMPRESSION: Relatively unremarkable appearance of the pancreas. Ascites with nodular appearance of the deep aspect of pelvic fluid and thickening of peritoneal reflections. Underlying peritonitis is not excluded. Nodular infiltrative appearance of omentum suggests the possibility of peritoneal carcinomatosis. Chest CT 06/25/19 00:00 IMPRESSION: Large posteriorly related and right pleural effusion with right lung compressive atelectasis. Thoracentesis Ultrasound 06/27/19 00:00 IMPRESSION: SUCCESSFUL DIAGNOSTIC AND THERAPEUTIC THORACENTESIS USING ULTRASOUND GUIDANCE. Chest X-Ray 06/27/19 18:00 IMPRESSION: NO PNEUMOTHORAX 2 HOURS AFTER THORACENTESIS. Transvaginal US 06/30/19 00:00 IMPRESSION: Limited pelvic ultrasound due to bowel gas and body habitus. No definite abnormalities noted in the uterus. The ovaries and adnexae are not well evaluated. Consider pelvic MRI or CT if further evaluate if clinically indicated. Assessment & Plan - Diagnosis (1) Acute pancreatitis Qualifiers: Pancreatitis type: unspecified pancreatitis type Acute pancreatitis complication: unspecified Qualified Code(s): K85.90 - Acute pancreatitis without necrosis or infection, unspecified Is this a current diagnosis for this admission?: Yes (2) Malignant pleural effusion Is this a current diagnosis for this admission?: Yes - Time Time Spent with patient: 35 or more minutes - Plan Summary Plan Summary: Patient is scheduled for paracentesis, she will continue present line of management
[2019-07-01] MEDS: ZOLPIDEM TARTRATE 5 MG TABLET PO PRN (21:26)
[2019-07-02] MEDS: MORPHINE SULFATE 10 MG/ML INJ IV PRN ×3 (03:45→21:33)
[2019-07-02] MEDS: SENNOSIDES/DOCUSATE 8.6-50 MG 1 EACH TABLET PO PRN (10:41)
[2019-07-02] MEDS: FUROSEMIDE INJ/PF 40 MG/4 ML SDV IV SCH (10:41)
[2019-07-02] MEDS: CEFTRIAXONE 1 GM/D5W RTU 1 GM/50 ML RTUPB IV SCH (10:41)
[2019-07-02] MEDS: FAMOTIDINE INJ/PF 20 MG/2 ML SDV IV SCH ×2 (10:42→21:33)
[2019-07-02 12:05] LABS: INTERNATIONAL RATION (INR) 1.52; PROTHROMBIN TIME 18.4 SEC (11.4-15.4)
--- NOTE | 2019-07-02 15:24 | PDOC PROGRESS REPORT ---
Subjective Progress Note for:: 07/02/19 Subjective:: Patient seen by the bedside, she has metastatic disease, scheduled for abdominal paracentesis in the morning. She is on morphine therapy for pain control, she was seen by oncology yesterday. Reason For Visit: ACUTE PANCREATITIS,UTI,DIABETES MELLITUS TYPE 2 Physical Exam Vital Signs: Temp Pulse Resp BP Pulse Ox 98.1 F 107 H 20 110/64 95 07/02/19 11:58 07/02/19 11:58 07/02/19 11:58 07/02/19 11:58 07/02/19 11:58 Intake & Output 07/01/19 07/02/19 07/03/19 06:59 06:59 06:59 Intake Total 1324 1177 50 Output Total 300 Balance 1324 877 50 Weight 88.9 kg 91.3 kg General appearance: PRESENT: no acute distress Eye exam: PRESENT: PERRLA Respiratory exam: PRESENT: clear to auscultation clark Cardiovascular exam: PRESENT: +S1, +S2 GI/Abdominal exam: PRESENT: soft Neurological exam: PRESENT: alert Results Laboratory Results: 07/01/19 05:55 07/01/19 05:55 06/24/19 06/24/19 06/27/19 20:35 20:35 04:07 Creatine Kinase < 20 L Troponin I 0.054 NT-Pro-B Natriuret Pep 552 H 265 H Impressions: Abdomen/Pelvis CT 06/24/19 21:40 IMPRESSION: Relatively unremarkable appearance of the pancreas. Ascites with nodular appearance of the deep aspect of pelvic fluid and thickening of peritoneal reflections. Underlying peritonitis is not excluded. Nodular infiltrative appearance of omentum suggests the possibility of peritoneal carcinomatosis. Chest CT 06/25/19 00:00 IMPRESSION: Large posteriorly related and right pleural effusion with right lung compressive atelectasis. Thoracentesis Ultrasound 06/27/19 00:00 IMPRESSION: SUCCESSFUL DIAGNOSTIC AND THERAPEUTIC THORACENTESIS USING ULTRASOUND GUIDANCE. Chest X-Ray 06/27/19 18:00 IMPRESSION: NO PNEUMOTHORAX 2 HOURS AFTER THORACENTESIS. Transvaginal US 06/30/19 00:00 IMPRESSION: Limited pelvic ultrasound due to bowel gas and body habitus. No definite abnormalities noted in the uterus. The ovaries and adnexae are not we ll evaluated. Consider pelvic MRI or CT if further evaluate if clinically indicated. Assessment & Plan - Diagnosis (1) Acute pancreatitis Qualifiers: Pancreatitis type: unspecified pancreatitis type Acute pancreatitis complication: unspecified Qualified Code(s): K85.90 - Acute pancreatitis without necrosis or infection, unspecified Is this a current diagnosis for this admission?: Yes (2) Malignant pleural effusion Is this a current diagnosis for this admission?: Yes - Time Time Spent with patient: 35 or more minutes
[2019-07-02] MEDS: ZOLPIDEM TARTRATE 5 MG TABLET PO PRN (21:33)
[2019-07-03] MEDS: MORPHINE SULFATE 10 MG/ML INJ IV PRN ×4 (02:41→21:39)
--- NOTE | 2019-07-03 07:40 | PDOC PROGRESS REPORT ---
Subjective Progress Note for:: 07/03/19 Subjective:: Placed call to radiology this morning, plan is for ultrasound-guided paracentesis and hopeful omental biopsy if it is possible. Patient will need some pain control prior to going down, she has morphine IV ordered and we recommended that she get a dose before she goes down. Reason For Visit: ACUTE PANCREATITIS,UTI,DIABETES MELLITUS TYPE 2 Physical Exam Vital Signs: Temp Pulse Resp BP Pulse Ox 98.2 F 108 H 20 122/59 L 92 07/03/19 03:47 07/03/19 03:47 07/03/19 03:47 07/03/19 03:47 07/03/19 03:47 Intake & Output 07/02/19 07/03/19 07/04/19 06:59 06:59 06:59 Intake Total 1177 1037 Output Total 300 200 Balance 877 837 Weight 91.3 kg 91.4 kg General appearance: PRESENT: no acute distress, well-developed, well-nourished Head exam: PRESENT: atraumatic, normocephalic Eye exam: PRESENT: conjunctiva pink, EOMI, PERRLA. ABSENT: scleral icterus Ear exam: PRESENT: normal external ear exam Mouth exam: PRESENT: moist, tongue midline Neck exam: ABSENT: carotid bruit, JVD, lymphadenopathy, thyromegaly Respiratory exam: PRESENT: clear to auscultation clark. ABSENT: rales, rhonchi, wheezes Cardiovascular exam: PRESENT: RRR. ABSENT: diastolic murmur, rubs, systolic murmur Pulses: PRESENT: normal dorsalis pedis pul Vascular exam: PRESENT: normal capillary refill GI/Abdominal exam: PRESENT: normal bowel sounds, soft. ABSENT: distended, guarding, mass, organolmegaly, rebound, tenderness Rectal exam: PRESENT: deferred Extremities exam: PRESENT: full ROM. ABSENT: calf tenderness, clubbing, pedal edema Neurological exam: PRESENT: alert, awake, oriented to person, oriented to place, oriented to time, oriented to situation, CN II-XII grossly intact. ABSENT: motor sensory deficit Psychiatric exam: PRESENT: appropriate affect, normal mood. ABSENT: homicidal ideation, suicidal ideation Skin exam: PRESENT: dry, intact, warm. ABSENT: cyanosis, rash Results Laboratory Results: 07/01/19 05:55 07/01/19 05:55 06/24/19 06/24/19 06/27/19 20:35 20:35 04:07 Creatine Kinase < 20 L Troponin I 0.054 NT-Pro-B Natriuret Pep 552 H 265 H Impressions: Abdomen/Pelvis CT 06/24/19 21:40 IMPRESSION: Relatively unremarkable appearance of the pancreas. Ascites with nodular appearance of the deep aspect of pelvic fluid and thickening of peritoneal reflections. Underlying peritonitis is not excluded. Nodular infiltrative appearance of omentum suggests the possibility of peritoneal carcinomatosis. Chest CT 06/25/19 00:00 IMPRESSION: Large posteriorly related and right pleural effusion with right lung compressive atelectasis. Thoracentesis Ultrasound 06/27/19 00:00 IMPRESSION: SUCCESSFUL DIAGNOSTIC AND THERAPEUTIC THORACENTESIS USING ULTRASOUND GUIDANCE. Chest X-Ray 06/27/19 18:00 IMPRESSION: NO PNEUMOTHORAX 2 HOURS AFTER THORACENTESIS. Transvaginal US 06/30/19 00:00 IMPRESSION: Limited pelvic ultrasound due to bowel gas and body habitus. No definite abnormalities noted in the uterus. The ovaries and adnexae are not well evaluated. Consider pelvic MRI or CT if further evaluate if clinically indicated. Assessment & Plan - Diagnosis (1) Primary cancer of unknown site and cell type Is this a current diagnosis for this admission?: Yes Plan: Most likely going to be a [employer]ELOP[employer] primary Ca 125 is elevated. although, ca19-9 is elevated patient did have irritation of the pancreas most likely from the ascites and the omental metastasis. This may be the cause of the elevation. Regardless we need more tissue to be able to figure out where primary site is. If primary site on cell typing indicates carcinoma secondary to [employer] primary then the next step would be systemic chemotherapy followed by reimaging and then surgical evaluation thereafter with [employer] oncology. If instead, an upper GI or pancreaticobiliary primary suspected, we would also consider systemic chemotherapy although different, followed by surgical oncology evaluation (2) Malignant ascites Is this a current diagnosis for this admission?: Yes Plan: Pending paracentesis and hopeful omental biopsy (3) Malignant pleural effusion Is this a current diagnosis for this admission?: Yes Plan: Improved post thoracentesis - Time Time Spent with patient: 35 or more minutes
[2019-07-03] MEDS: FAMOTIDINE INJ/PF 20 MG/2 ML SDV IV SCH (09:15)
[2019-07-03] MEDS: FUROSEMIDE INJ/PF 40 MG/4 ML SDV IV SCH (09:15)
[2019-07-03] MEDS ORDERED: FENTANYL CITRATE INJ/PF 100 MCG/2 ML AMPUL ONE (11:07)
[2019-07-03] MEDS ORDERED: MIDAZOLAM 2 MG/2 ML INJ ONE (11:07)
--- NOTE | 2019-07-03 14:16 | RADIOLOGY REPORT (SQ) ---
EXAM DESCRIPTION: CT NEEDLE PLACEMENT COMPLETED DATE/TIME: 07/03/2019 12:07 pm REASON FOR STUDY: INFILTRATIVE APPEARANCE OF OMENTUM, OMENTUM BIOPSY COMPARISON: None. TECHNIQUE: CT guided biopsy of the peritoneal implant performed with conscious sedation. CT Fluoroscopy Time: 4.[address] scanners at this facility use dose modulation, iterative reconstruction, and/or weight based d osing when appropriate to reduce radiation dose to as low as reasonably achievable (ALARA). [facility]: Dose Right [facility]: CareDose [facility]: Dose Right [facility]: Teradose 4D [facility]: [employer] RADIATION DOSE: CT Rad equipment meets quality standard of care and radiation dose reduction techni ques were employed. CTDIvol: 7.6 - 20.4 mGy. DLP: 1195 mGy-cm.mGy. FINDINGS: After obtaining informed consent and explaining the risks and benefits of conscious sedati on,the patient agreed to the procedure. Prior to the procedure, a time out was performed to verify th e patient's identity and planned procedure. IV sedation was administered and physician direction by the registered nurse using 1.0 milligrams of Versed and 50 micrograms of fentanyl, for conscious sedation. Physiologic monitoring was provided bef ore, during, and after sedation. The total sedation time was 20 minutes. Documentation face to face time, the performing proceduralist, spent monitoring the patient: [address] scanning was performed to localize the percutaneous site for the biopsy approach. After sterile skin prep and local lidocaine for skin and deep tissue anesthesia, a coaxial biopsy nee dle was used to obtain multiple cores of tissue. The biopsy tissue was submitted to the lab in forma aly. There were no immediate complications. Pathology is pending at the time of dictation. IMPRESSION: CT GUIDED BIOPSY OF THE PERITONEAL IMPLANT PERFORMED WITHOUT IMMEDIATE COMPLICATION. ROSALVA THOLOGY PENDING. COMMENT: Quality ID [id number]: Final reports for procedures using fluoroscopy that document radiation exp osure indices, or exposure time and number of fluorographic images (if radiation exposure indices are not available) Patient medication list reviewed: Yes- Quality ID# [id number]:Eligible professional attests to documenting i n the medical record they obtained, updated, or reviewed the patient's current medications.. TECHNICAL DOCUMENTATION: JOB ID: [id number] Quality ID# [id number]: Final reports with documentation of one or more dose reduction techniques (e.g., Aut omated exposure control, adjustment of the mA and/or kV according to patient size, use of iterative r econstruction technique) 2010 [employer]- All Rights Reserved Reading location - IP/workstation name: [email or web address]
--- NOTE | 2019-07-03 14:19 | RADIOLOGY REPORT (SQ) ---
EXAM DESCRIPTION: CT ABD PARACENTESIS INITIAL; CT BIOPSY ABD/RETROPERIT MASS COMPLETED DATE/TIME: 07/03/2019 12:55 pm; 07/03/2019 12:10 pm REASON FOR STUDY: THERAPEUTIC PARA FOR ASCITES; INFILTRATIVE APPEARANCE OF OMENTUM COMPARISON: None. MICROWAVE ENGINEER: Manuel Kyle RA SUPERVISING PHYSICIAN: Dr Altamirano FLUOROSCOPY TIME: 5.0 seconds RADIATION DOSE: mGy. LIMITATIONS: None. PROCEDURE: Procedure, risks, benefit, and alternative explained to patient who then gave written con sent. The abdominal wall was marked; "time-out" called; correct marking verified. Entry site marke d using CT guidance. Abdomen prepped and draped using sterile technique. Local anesthesia achieved using 1% lidocaine injection. Hypodermic needle introduced into the peritoneal space. Fluid aspira vero. Needle removed and entry site covered with sterile bandage. No immediate complications noted . Images were acquired during the procedure and stored on PACS. All CT scanners at this facility use dose modulation, iterative reconstruction, and/or weight based d osing when appropriate to reduce radiation dose to as low as reasonably achievable (ALARA). [facility]: Dose Right [facility]: CareDose [facility]: Dose Right [facility]: Teradose 4D [facility]: [employer] FINDINGS: ENTRY SITE: Right lower quadrant. FLUID VOLUME: 4 L FLUID ANALYSIS: Serosanguineous. OTHER: None. IMPRESSION: SUCCESSFUL CT GUIDED PARACENTESIS. COMMENT: Patient medication list reviewed: Yes- Quality ID# [id number]:Eligible professional attests to doc umenting in the medical record they obtained, updated, or reviewed the patient's current medications. . TECHNICAL DOCUMENTATION: JOB ID: [id number] Quality ID # [id number]: Final reports with documentation of one or more dose reduction techniques (e.g., Au tomated exposure control, adjustment of the mA and/or kV according to patient size, use of iterative reconstruction technique) 2010 [employer]- All Rights Reserved Reading location - IP/workstation name: [email or web address]
--- NOTE | 2019-07-03 14:19 | RADIOLOGY REPORT (SQ) ---
EXAM DESCRIPTION: CT ABD PARACENTESIS INITIAL; CT BIOPSY ABD/RETROPERIT MASS COMPLETED DATE/TIME: 07/03/2019 12:55 pm; 07/03/2019 12:10 pm REASON FOR STUDY: THERAPEUTIC PARA FOR ASCITES; INFILTRATIVE APPEARANCE OF OMENTUM COMPARISON: None. CROZER OPERATOR: Manuel Kyle RA SUPERVISING PHYSICIAN: Dr Altamirano FLUOROSCOPY TIME: 5.0 seconds RADIATION DOSE: mGy. LIMITATIONS: None. PROCEDURE: Procedure, risks, benefit, and alternative explained to patient who then gave written con sent. The abdominal wall was marked; "time-out" called; correct marking verified. Entry site marke d using CT guidance. Abdomen prepped and draped using sterile technique. Local anesthesia achieved using 1% lidocaine injection. Hypodermic needle introduced into the peritoneal space. Fluid aspira vero. Needle removed and entry site covered with sterile bandage. No immediate complications noted . Images were acquired during the procedure and stored on PACS. All CT scanners at this facility use dose modulation, iterative reconstruction, and/or weight based d osing when appropriate to reduce radiation dose to as low as reasonably achievable (ALARA). [facility]: Dose Right [facility]: CareDose [facility]: Dose Right [facility]: Teradose 4D [facility]: [employer] FINDINGS: ENTRY SITE: Right lower quadrant. FLUID VOLUME: 4 L FLUID ANALYSIS: Serosanguineous. OTHER: None. IMPRESSION: SUCCESSFUL CT GUIDED PARACENTESIS. COMMENT: Patient medication list reviewed: Yes- Quality ID# [id number]:Eligible professional attests to doc umenting in the medical record they obtained, updated, or reviewed the patient's current medications. . TECHNICAL DOCUMENTATION: JOB ID: [id number] Quality ID # [id number]: Final reports with documentation of one or more dose reduction techniques (e.g., Au tomated exposure control, adjustment of the mA and/or kV according to patient size, use of iterative reconstruction technique) 2010 [employer]- All Rights Reserved Reading location - IP/workstation name: [email or web address]
--- NOTE | 2019-07-03 18:18 | PDOC PROGRESS REPORT ---
Subjective Progress Note for:: 07/03/19 Subjective:: Patient s post CT guided paracentesis and omental lesion biopsies. She reported poor P.O intake with some nausea. No vomiting. Nonspecific abdominal pain. She denied any chest pain or difficulty with breathing. No fever or chills. No nausea, vomiting, or abdominal pain. Reason For Visit: ACUTE PANCREATITIS,UTI,DIABETES MELLITUS TYPE 2 Physical Exam Vital Signs: Temp Pulse Resp BP Pulse Ox 98.0 F 105 H 17 119/62 95 07/03/19 15:56 07/03/19 15:56 07/03/19 15:56 07/03/19 15:56 07/03/19 15:56 Intake & Output 07/02/19 07/03/19 07/04/19 06:59 06:59 06:59 Intake Total 1177 1037 417 Output Total 300 200 11 Balance 877 837 406 Weight 91.3 kg 91.4 kg 91.4 kg Physical Exam: General appearance: PRESENT: no acute distress, obese Head exam: PRESENT: atraumatic, normocephalic Eye exam: PRESENT: conjunctiva pink. ABSENT: pallor, scleral icterus Ear exam: PRESENT: normal external ear exam Mouth exam: PRESENT: moist Respiratory exam: PRESENT: clear to auscultation clark, decreased breath sounds - at lung bases Cardiovascular exam: PRESENT: RRR, +S1, +S2. ABSENT: diastolic murmur, rubs, systolic murmur GI/Abdominal exam: PRESENT: normal bowel sounds, soft. ABSENT: distended, guarding, mass, organomegaly, rebound, tenderness Extremities exam: PRESENT: pedal edema - bilateral pitting edema. Musculoskeletal exam: PRESENT: ambulatory Neurological exam: PRESENT: alert, awake, oriented to person, oriented to place, oriented to time, oriented to situation, CN II-XII grossly intact. ABSENT: motor sensory deficit Psychiatric exam: PRESENT: appropriate affect, normal mood. ABSENT: homicidal ideation, suicidal ideation Skin exam: PRESENT: dry, warm, other - resolving ecchymosis over right anterior chest wall and left medial thigh region. Her procedure site dressing satisfactory. Results Laboratory Results: 07/01/19 05:55 07/01/19 05:55 06/24/19 06/24/19 06/27/19 20:35 20:35 04:07 Creatine Kinase < 20 L Troponin I 0.054 NT-Pro-B Natriuret Pep 552 H 265 H Impressions: Abdomen/Pelvis CT 06/24/19 21:40 IMPRESSION: Relatively unremarkable appearance of the pancreas. Ascites with nodular appearance of the deep aspect of pelvic fluid and thickening of peritoneal reflections. Underlying peritonitis is not excluded. Nodular infiltrative appearance of omentum suggests the possibility of peritoneal carcinomatosis. Chest CT 06/25/19 00:00 IMPRESSION: Large posteriorly related and right pleural effusion with right lung compressive atelectasis. Thoracentesis Ultrasound 06/27/19 00:00 IMPRESSION: SUCCESSFUL DIAGNOSTIC AND THERAPEUTIC THORACENTESIS USING ULTRASOUND GUIDANCE. Chest X-Ray 06/27/19 18:00 IMPRESSION: NO PNEUMOTHORAX 2 HOURS AFTER THORACENTESIS. Transvaginal US 06/30/19 00:00 IMPRESSION: Limited pelvic ultrasound due to bowel gas and body habitus. No definite abnormalities noted in the uterus. The ovaries and adnexae are not well evaluated. Consider pelvic MRI or CT if further evaluate if clinically indicated. Abdomen Biopsy CT 07/03/19 00:00 IMPRESSION: SUCCESSFUL CT GUIDED PARACENTESIS. Abdomen CT 07/03/19 00:00 IMPRESSION: SUCCESSFUL CT GUIDED PARACENTESIS. Guidance Needle Placement CT 07/03/19 00:00 IMPRESSION: CT GUIDED BIOPSY OF THE PERITONEAL IMPLANT PERFORMED WITHOUT IMMEDIATE COMPLICATION. PATHOLOGY PENDING. Assessment & Plan - Diagnosis (1) Acute pancreatitis Qualifiers: Pancreatitis type: unspecified pancreatitis type Acute pancreatitis complic ation: unspecified Qualified Code(s): K85.90 - Acute pancreatitis without necrosis or infection, unspecified Is this a current diagnosis for this admission?: Yes (2) UTI (urinary tract infection) Qualifiers: Urinary tract infection type: site unspecified Hematuria presence: with hematuria Qualified Code(s): N39.0 - Urinary tract infection, site not specified; R31.9 - Hematuria, unspecified Is this a current diagnosis for this admission?: Yes (3) Atelectasis of right lung Is this a current diagnosis for this admission?: Yes (4) Diabetes mellitus type 2 in obese Is this a current diagnosis for this admission?: Yes (5) HTN (hypertension) Qualifiers: Hypertension type: essential hypertension Qualified Code(s): I10 - Essential (primary) hypertension Is this a current diagnosis for this admission?: Yes (6) Rheumatoid arthritis Qualifiers: Rheumatoid arthritis location: unspecified site Is this a current diagnosis for this admission?: Yes (7) Pleural effusion on right Is this a current diagnosis for this admission?: Yes (8) Acute right-sided CHF (congestive heart failure) Is this a current diagnosis for this admission?: Yes (9) Pulmonary arterial hypertension Is this a current diagnosis for this admission?: Yes (10) Primary cancer of unknown site and cell type Is this a current diagnosis for this admission?: Yes (11) Malignant ascites Is this a current diagnosis for this admission?: Yes Plan: Follow up on Cytology findings. (12) Malignant pleural effusion Is this a current diagnosis for this admission?: Yes Plan: Follow up on ascites cytology findings for some insight into her malignancy. - Time Time Spent with patient: 25-34 minutes Level of Care: IMCU Medications reviewed and adjusted accordingly: Yes Anticipated discharge: Home with Homehealth Within: Other - Inpatient Certification Based on my medical assessment, after consideration of the patient's comorbidities, presenting symptoms, or acuity I expect that the services needed warrant INPATIENT care.: Yes I certify that my determination is in accordance with my understanding of Medicare's requirements for reasonable and necessary INPATIENT services [42 CFR 412.3e].: Yes Medical Necessity: Significant Comorbidiites Make Outpatient Treatment Too Risky, Need Close Monitoring Due to Risk of Patient Decompensation, Need For Con tinuous Telemetry Monitoring, Need for Pain Control, Risk of Complication if Not Cared For in Hospital, Risk of Diagnosis Which Will Require Inpatient Eval/Care/Monitoring Post Hospital Care: D/C Leather Repairer Documentation - Plan Summary Plan Summary: Continue current medication management. Follow up on pending lab findings. Oncology input appreciated.
[2019-07-03] MEDS ORDERED: DEXTROSE 50%-WATER 25 GM/50 ML DISP.SYRIN IV PRN ×2 (18:20)
[2019-07-03] MEDS ORDERED: DEXTROSE 40% GEL 15 GM TUBE PO PRN ×2 (18:20)
[2019-07-03] MEDS ORDERED: GLUCAGON,HUMAN RECOMB 1 MG INJ IM PRN (18:20)
[2019-07-03] MEDS: INSULIN LISPRO 100 UNIT/ML 3 ML VIAL SUBCUT SCH (21:38)
[2019-07-03] MEDS: ZOLPIDEM TARTRATE 5 MG TABLET PO PRN (21:38)
[2019-07-04] MEDS: MORPHINE SULFATE 10 MG/ML INJ IV PRN ×2 (02:12→06:37)
[2019-07-04 06:09] LABS: ABSOLUTE BASOPHILS # (AUTO) 0.2 10^3/uL (0.0-0.2); ABSOLUTE EOSINOPHILS # (AUTO) 0.2 10^3/uL (0.0-0.6); ABSOLUTE LYMPHOCYTES (AUTO) 1.1 10^3/uL (0.5-4.7); ABSOLUTE MONOCYTES (AUTO) 1.3 10^3/uL (0.1-1.4); BASOPHILS % (AUTO) 1.2 % (0-2); EOSINOPHILS % (AUTO) 1.9 % (0-6); HEMATOCRIT 33.4 % (36.0-47.0); HEMOGLOBIN 11.2 g/dL (12.0-15.5); LYMPHOCYTES % (AUTO) 8.9 % (13-45); MEAN CORPUSCULAR HGB CONC 33.6 g/dL (32.0-36.0); MEAN CORPUSCULAR VOLUME 81 fl (80-97); MONOCYTES % (AUTO) 10.2 % (3-13); PLATELET COUNT 349 10^3/uL (150-450); RED BLOOD COUNT 4.15 10^6/uL (3.72-5.28); RED CELL DISTRIBUTION WIDTH 14.7 % (11.5-14.0); SEGMENTED NEUTROPHILS % (AUTO) 77.8 % (42-78); TOTAL CELLS COUNTED % (AUTO) 100 %; WHITE BLOOD COUNT 12.9 10^3/uL (4.0-10.5)
[2019-07-04 06:30] LABS: ALBUMIN 2.5 g/dL (3.5-5.0); ALKALINE PHOSPHATASE 120 U/L (38-126); ANION GAP 7 (5-19); ASPARTATE AMINO TRANSFERASE 13 U/L (14-36); BILIRUBIN,DIRECT 0.1 mg/dL (0.0-0.4); BILIRUBIN,TOTAL 0.4 mg/dL (0.2-1.3); BLOOD UREA NITROGEN 14 mg/dL (7-20); CALCIUM 8.4 mg/dL (8.4-10.2); CARBON DIOXIDE 28 mmol/L (22-30); CHLORIDE 96 mmol/L (98-107); GLUCOSE 165 mg/dL (75-110); TOTAL PROTEIN 5.1 g/dL (6.3-8.2)
[2019-07-04] MEDS: PANTOPRAZOLE SODIUM 40 MG TABLET.DR PO SCH (06:37)
[2019-07-04] MEDS ORDERED: OXYCODONE HCL IR 5 MG TABLET PO PRN (07:56)
--- NOTE | 2019-07-04 08:10 | PDOC PROGRESS REPORT ---
Subjective Progress Note for:: 07/04/19 Subjective:: Pt doing better this morning, still w/ pain. Morphine does control pain to some extent. [place] a little better after paracentesis yesterday. Discussed w/ pt that reason for pain is related to malignancy as largest area of omental involvement is in R quadrant, her area of pain. They were able to get omental bx and good amt of tissue per radiology. Today spent 40 min in discussion/coordination of care. Pt feels ready to go home today Reason For Visit: ACUTE PANCREATITIS,UTI,DIABETES MELLITUS TYPE 2 Physical Exam Vital Signs: Temp Pulse Resp BP Pulse Ox 98.9 F 96 16 102/56 L 94 07/04/19 04:34 07/04/19 04:34 07/04/19 04:34 07/04/19 04:34 07/04/19 04:34 Intake & Output 07/03/19 07/04/19 07/05/19 06:59 06:59 06:59 Intake Total 1037 657 Output Total 200 11 Balance 837 646 Weight 91.4 kg 89.2 kg General appearance: PRESENT: no acute distress, well-developed, well-nourished Head exam: PRESENT: atraumatic, normocephalic Eye exam: PRESENT: conjunctiva pink, EOMI, PERRLA. ABSENT: scleral icterus Ear exam: PRESENT: normal external ear exam Mouth exam: PRESENT: moist, tongue midline Neck exam: ABSENT: carotid bruit, JVD, lymphadenopathy, thyromegaly Respiratory exam: PRESENT: clear to auscultation clark. ABSENT: rales, rhonchi, wheezes Cardiovascular exam: PRESENT: RRR. ABSENT: diastolic murmur, rubs, systolic murmur Pulses: PRESENT: normal dorsalis pedis pul Vascular exam: PRESENT: normal capillary refill GI/Abdominal exam: PRESENT: normal bowel sounds, soft. ABSENT: distended, guarding, mass, organolmegaly, rebound, tenderness Rectal exam: PRESENT: deferred Extremities exam: PRESENT: full ROM. ABSENT: calf tenderness, clubbing, pedal edema Neurological exam: PRESENT: alert, awake, oriented to person, oriented to place, oriented to time, oriented to situation, CN II-XII grossly intact. ABSENT: motor sensory deficit Psychiatric exam: PRESENT: appropriate affect, normal mood. ABSENT: homicidal ideation, suicidal ideation Skin exam: PRESENT: dry, intact, warm. ABSENT: cyanosis, rash Results Laboratory Results: 07/04/19 05:35 07/04/19 05:35 07/04/19 07/04/19 05:35 05:35 WBC 12.9 H RBC 4.15 Hgb 11.2 L Hct 33.4 L MCV 81 MCH 27.0 MCHC 33.6 RDW 14.7 H Plt Count 349 Seg Neutrophils % 77.8 Sodium 130.7 L Potassium 4.0 Chloride 96 L Carbon Dioxide 28 Anion Gap 7 BUN 14 Creatinine 0.45 L Est GFR ( Amer) > 60 Glucose 165 H Calcium 8.4 Total Bilirubin 0.4 AST 13 L Alkaline Phosphatase 120 Total Protein 5.1 L Albumin 2.5 L 06/24/19 06/24/19 06/27/19 20:35 20:35 04:07 Creatine Kinase < 20 L Troponin I 0.054 NT-Pro-B Natriuret Pep 552 H 265 H Impressions: Abdomen/Pelvis CT 06/24/19 21:40 IMPRESSION: Relatively unremarkable appearance of the pancreas. Ascites with nodular appearance of the deep aspect of pelvic fluid and thickening of peritoneal reflections. Underlying peritonitis is not excluded. Nodular infiltrative appearance of omentum suggests the possibility of peritoneal carcinomatosis. Chest CT 06/25/19 00:00 IMPRESSION: Large posteriorly related and right pleural effusion with right lung compressive atelectasis. Thoracentesis Ultrasound 06/27/19 00:00 IMPRESSION: SUCCESSFUL DIAGNOSTIC AND THERAPEUTIC THORACENTESIS USING ULTRASOUND GUIDANCE. Chest X-Ray 06/27/19 18:00 IMPRESSION: NO PNEUMOTHORAX 2 HOURS AFTER THORACENTESIS. Transvaginal US 06/30/19 00:00 IMPRESSION: Limited pelvic ultrasound due to bowel gas and body habitus. No definite abnormalities noted in the uterus. The ovaries and adnexae are not well evaluated. Consider pelvic MRI or CT if further evaluate if clinically indicated. Abdomen Biopsy CT 07/03/19 00:00 IMPRESSION: SUCCESSFUL CT GUIDED PARACENTESIS. Abdomen CT 07/03/19 00:00 IMPRESSION: SUCCESSFUL CT GUIDED PARACENTESIS. Guidance Needle Placement CT 07/03/19 00:00 IMPRESSION: CT GUIDED BIOPSY OF THE PERITONEAL IMPLANT PERFORMED WITHOUT IMMEDIATE COMPLICATION. PATHOLOGY PENDING. Status: Image reviewed by me Assessment & Plan - Diagnosis (1) Primary cancer of unknown site and cell type Is this a current diagnosis for this admission?: Yes Plan: Await final path results. Will set up f/u in office in 1 wk (2) Malignant ascites Is this a current diagnosis for this admission?: Yes Plan: S/p paracentesis, will follow probably need another one in the next few weeks (3) Malignant pleural effusion Is this a current diagnosis for this admission?: Yes Plan: S/p thoracentesis (4) Pain, neoplasm-related Is this a current diagnosis for this admission?: Yes Plan: Will transition IV morphine to oral oxycodone, I will write rx for her to take if Dr. Wyatt feels pt ready for d/c - Time Time Spent with patient: 35 or more minutes
[2019-07-04] MEDS: INSULIN LISPRO 100 UNIT/ML 3 ML VIAL SUBCUT SCH ×4 (08:50→21:35)
[2019-07-04] MEDS: FUROSEMIDE INJ/PF 40 MG/4 ML SDV IV SCH (09:00)
[2019-07-04] MEDS ORDERED: MORPHINE SULFATE 10 MG/ML INJ IV PRN (09:30)
[2019-07-04] MEDS ORDERED: MEGESTROL ACETATE SUSP 400 MG/10 ML UDCUP PO SCH (10:00)
[2019-07-04] MEDS: OXYCODONE HCL IR 5 MG TABLET PO PRN ×3 (12:25→21:36)
--- NOTE | 2019-07-04 17:30 | PDOC PROGRESS REPORT ---
Subjective Progress Note for:: 07/04/19 Subjective:: Patient continue to express RLQ pain. No nausea or vomiting. Poor p.o intake more related to dislike of hospital food. She denied any chest pain or difficulty with breathing. No fever or chills. Reason For Visit: ACUTE PANCREATITIS,UTI,DIABETES MELLITUS TYPE 2 Physical Exam Vital Signs: Temp Pulse Resp BP Pulse Ox 97.9 F 105 H 16 94/59 L 95 07/04/19 07:39 07/04/19 11:41 07/04/19 11:41 07/04/19 11:41 07/04/19 11:41 Intake & Output 07/03/19 07/04/19 07/05/19 06:59 06:59 06:59 Intake Total 1037 657 280 Output Total 200 11 Balance 837 646 280 Weight 91.4 kg 89.2 kg Physical Exam: General appearance: PRESENT: no acute distress, obese Head exam: PRESENT: atraumatic, normocephalic Eye exam: PRESENT: conjunctiva pink. ABSENT: pallor, scleral icterus Ear exam: PRESENT: normal external ear exam Mouth exam: PRESENT: moist Respiratory exam: PRESENT: clear to auscultation clark, decreased breath sounds - at lung bases Cardiovascular exam: PRESENT: RRR, +S1, +S2. ABSENT: diastolic murmur, rubs, systolic murmur GI/Abdominal exam: PRESENT: normal bowel sounds, soft, RLQ tenderness to palpation. ABSENT: distended, guarding, mass, organomegaly, rebound Extremities exam: PRESENT: pedal edema - bilateral pitting edema. Musculoskeletal exam: PRESENT: ambulatory Neurological exam: PRESENT: alert, awake, oriented to person, oriented to place, oriented to time, oriented to situation, CN II-XII grossly intact. ABSENT: motor sensory deficit Psychiatric exam: PRESENT: appropriate affect, normal mood. ABSENT: homicidal ideation, suicidal ideation Skin exam: PRESENT: dry, warm, other - resolving ecchymosis over right anterior chest wall and left medial thigh region. Her procedure site dressing satisf actory. Results Laboratory Results: 07/04/19 05:35 07/04/19 05:35 07/04/19 07/04/19 07/04/19 05:35 05:35 05:35 WBC 12.9 H RBC 4.15 Hgb 11.2 L Hct 33.4 L MCV 81 MCH 27.0 MCHC 33.6 RDW 14.7 H Plt Count 349 Seg Neutrophils % 77.8 Sodium 130.7 L Potassium 4.0 Chloride 96 L Carbon Dioxide 28 Anion Gap 7 BUN 14 Creatinine 0.45 L Est GFR ( Amer) > 60 Glucose 165 H Calcium 8.4 Total Bilirubin 0.4 AST 13 L Alkaline Phosphatase 120 Total Protein 5.1 L Albumin 2.5 L Lipase 152.9 06/24/19 06/24/19 06/27/19 20:35 20:35 04:07 Creatine Kinase < 20 L Troponin I 0.054 NT-Pro-B Natriuret Pep 552 H 265 H Impressions: Abdomen/Pelvis CT 06/24/19 21:40 IMPRESSION: Relatively unremarkable appearance of the pancreas. Ascites with nodular appearance of the deep aspect of pelvic fluid and thickening of peritoneal reflections. Underlying peritonitis is not excluded. Nodular infiltrative appearance of omentum suggests the possibility of peritoneal carcinomatosis. Chest CT 06/25/19 00:00 IMPRESSION: Large posteriorly related and right pleural effusion with right lung compressive atelectasis. Thoracentesis Ultrasound 06/27/19 00:00 IMPRESSION: SUCCESSFUL DIAGNOSTIC AND THERAPEUTIC THORACENTESIS USING ULTRASOUND GUIDANCE. Chest X-Ray 06/27/19 18:00 IMPRESSION: NO PNEUMOTHORAX 2 HOURS AFTER THORACENTESIS. Transvaginal US 06/30/19 00:00 IMPRESSION: Limited pelvic ultrasound due to bowel gas and body habitus. No definite abnormalities noted in the uterus. The ovaries and adnexae are not well evaluated. Consider pelvic MRI or CT if further evaluate if clinically indicated. Abdomen Biopsy CT 07/03/19 00:00 IMPRESSION: SUCCESSFUL CT GUIDED PARACENTESIS. Abdomen CT 07/03/19 00:00 IMPRESSION: SUCCESSFUL CT GUIDED PARACENTESIS. Guidance Needle Placement CT 07/03/19 00:00 IMPRESSION: CT GUIDED BIOPSY OF THE PERITONEAL IMPLANT PERFORMED WITHOUT IMMEDIATE COMPLICATION. PATHOLOGY PENDING. Assessment & Plan - Diagnosis (1) Acute pancreatitis Qualifiers: Pancreatitis type: unspecified pancreatitis type Acute pancreatitis complication: unspecified Qualified Code(s): K85.90 - Acute pancreatitis without necrosis or infection, unspecified Is this a current diagnosis for this admission?: Yes (2) UTI (urinary tract infection) Qualifiers: Urinary tract infection type: site unspecified Hematuria presence: with hematuria Qualified Code(s): N39.0 - Urinary tract infection, site not specified; R31.9 - Hematuria, unspecified Is this a current diagnosis for this admission?: Yes (3) Atelectasis of right lung Is this a current diagnosis for this admission?: Yes (4) Diabetes mellitus type 2 in obese Is this a current diagnosis for this admission?: Yes (5) HTN (hypertension) Qualifiers: Hypertension type: essential hypertension Qualified Code(s): I10 - Essential (primary) hypertension Is this a current diagnosis for this admission?: Yes (6) Rheumatoid arthritis Qualifiers: Rheumatoid arthritis location: unspecified site Is this a current diagnosis for this admission?: Yes (7) Pleural effusion on right Is this a current diagnosis for this admission?: Yes (8) Acute right-sided CHF (congestive heart failure) Is this a current diagnosis for this admission?: Yes (9) Pulmonary arterial hypertension Is this a current diagnosis for this admission?: Yes (10) Primary cancer of unknown site and cell type Is this a current diagnosis for this admission?: Yes (11) Malignant ascites Is this a current diagnosis for this admission?: Yes (12) Malignant pleural effusion Is this a current diagnosis for this admission?: Yes - Time Time Spent with patient: 25-34 minutes Level of Care: IMCU Medications reviewed and adjusted accordingly: Yes Anticipated discharge: Home with Homehealth Within: Other - Inpatient Certification Based on my medical assessment, after consideration of the patient's comorbidities, presenting symptoms, or acuity I expect that the services needed warrant INPATIENT care.: Yes I certify that my determination is in accordance with my understanding of Medicare's requirements for reasonable and necessary INPATIENT services [42 CFR 412.3e].: Yes Medical Necessity: Significant Comorbidiites Make Outpatient Treatment Too Risky, Need Close Monitoring Due to Risk of Patient Decompensation, Need For Continuous Telemetry Monitoring, Need for Pain Control, Risk of Complication if Not Cared For in Hospital, Risk of Diagnosis Which Will Require Inpatient Eval/Care/Monitoring Post Hospital Care: D/C 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 Obtain serum lipase. D/C IV Lasix. Start on Lasix 20 mg po daily. Continue other current medication management.
[2019-07-04] MEDS: METFORMIN HCL 500 MG TABLET PO SCH (18:04)
[2019-07-04] MEDS: APIXABAN 5 MG TABLET PO SCH (21:49)
[2019-07-05] MEDS: PANTOPRAZOLE SODIUM 40 MG TABLET.DR PO SCH (05:37)
[2019-07-05] MEDS: SENNOSIDES/DOCUSATE 8.6-50 MG 1 EACH TABLET PO PRN (07:54)
[2019-07-05] MEDS: OXYCODONE HCL IR 5 MG TABLET PO PRN ×3 (07:55→16:42)
[2019-07-05] MEDS: INSULIN LISPRO 100 UNIT/ML 3 ML VIAL SUBCUT SCH ×4 (07:56→22:53)
--- NOTE | 2019-07-05 08:37 | RADIOLOGY REPORT (SQ) ---
EXAM DESCRIPTION: VENOUS BILATERAL LOWER COMPLETED DATE/TIME: 07/04/2019 7:29 pm REASON FOR STUDY: Bilateral lower extremities swelling Left >> right COMPARISON: None. TECHNIQUE: Dynamic and static stone scale and color images acquired of both lower extremity venous sy stems. Selected spectral images acquired with additional compression and augmentation maneuvers. Imag es stored on PACS. LIMITATIONS: None. FINDINGS: RIGHT LEG COMMON FEMORAL AND FEMORAL: Normal phasicity, compression and augmentation. No visualized echogenic m aterial on stone scale. No defects on color images. POPLITEAL: Normal compression and augmentation. No visualized echogenic material on stone scale. No de fects on color images. CALF VESSELS: Normal compression and augmentation. No visualized echogenic material on stone scale. No defects on color image. GSV AND SSV: Normal compression. No visualized echogenic material on stone scale. No defects on color images. ANY DEEP VENOUS INSUFFICIENCY: Not evaluated. ANY EVIDENCE OF POPLITEAL CYST: No. OTHER: No other significant finding. LEFT LEG COMMON FEMORAL AND FEMORAL: Decreased compressibility with intraluminal filling defect compatible wit h thrombus within the common and femoral veins. POPLITEAL: Decreased compressibility and intraluminal filling defect compatible with thrombus. CALF VESSELS: Incompletely evaluated secondary to edema. Apparent thrombus within the peroneal and a nterior tibial veins GSV AND SSV: GSV demonstrates Normal compression. No visualized echogenic material on stone scale. No defects on color images. SSV demonstrate decreased compressibility and intraluminal filling defect compatible with thrombus. ANY DEEP VENOUS INSUFFICIENCY: Not evaluated. ANY EVIDENCE POPLITEAL CYST: No. OTHER: Lower extremity edema. IMPRESSION: 1. Acute DVT within the left common, femoral and popliteal veins. Evaluation of distal veins limited secondary to lower extremity edema. Additional superficial venous thrombus within the small saphenous vein. 2. No evidence of DVT or SVT within the right lower extremity. Preliminary results were called to the patient's nurse at 1910 on 07/04/2019. TECHNICAL DOCUMENTATION: JOB ID: [id number] [employer]- All Rights Reserved Reading location - IP/workstation name: [email or web address]
[2019-07-05] MEDS ORDERED: FUROSEMIDE 40 MG TABLET PO SCH (10:00)
[2019-07-05] MEDS: METFORMIN HCL 500 MG TABLET PO SCH ×2 (12:15→17:24)
[2019-07-05] MEDS: APIXABAN 5 MG TABLET PO SCH ×2 (12:15→22:53)
[2019-07-05] MEDS: FUROSEMIDE 20 MG TABLET PO SCH (12:15)
--- NOTE | 2019-07-05 18:22 | PDOC PROGRESS REPORT ---
Subjective Progress Note for:: 07/05/19 Subjective:: Patient reported persistence of pelvic and RLQ pain. No nausea or vomiting. P.O intake remain poor. She denied any chest pain or difficulty with breathing. No fever or chills. Reason For Visit: ACUTE PANCREATITIS,UTI,DIABETES MELLITUS TYPE 2 Physical Exam Vital Signs: Temp Pulse Resp BP Pulse Ox 98.4 F 101 H 17 113/66 96 07/05/19 16:18 07/05/19 16:18 07/05/19 16:18 07/05/19 16:18 07/05/19 16:18 Intake & Output 07/04/19 07/05/19 07/06/19 06:59 06:59 06:59 Intake Total 657 960 236 Output Total 11 Balance 646 960 236 Weight 89.2 kg 93.9 kg Physical Exam: General appearance: PRESENT: no acute distress, obese Head exam: PRESENT: atraumatic, normocephalic Eye exam: PRESENT: conjunctiva pink. ABSENT: pallor, scleral icterus Ear exam: PRESENT: normal external ear exam Mouth exam: PRESENT: moist Respiratory exam: PRESENT: clear to auscultation clark, decreased breath sounds - at lung bases Cardiovascular exam: PRESENT: RRR, +S1, +S2. ABSENT: diastolic murmur, rubs, systolic murmur GI/Abdominal exam: PRESENT: normal bowel sounds, soft, RLQ tenderness to palpation. ABSENT: distended, guarding, mass, organomegaly, rebound Extremities exam: PRESENT: bilateral pedal edema, left >> right. Musculoskeletal exam: PRESENT: ambulatory Neurological exam: PRESENT: alert, awake, oriented to person, oriented to place, oriented to time, oriented to situation, CN II-XII grossly intact. ABSENT: motor sensory deficit Psychiatric exam: PRESENT: appropriate affect, normal mood. ABSENT: homicidal ideation, suicidal ideation Skin exam: PRESENT: dry, warm, other - resolving ecchymosis over right anterior chest wall and left medial thigh region. Her procedure site dressing satisfactory. Results Laboratory Results: 07/04/19 05:35 07/04/19 05:35 06/24/19 06/24/19 06/27/19 20:35 20:35 04:07 Creatine Kinase < 20 L Troponin I 0.054 NT-Pro-B Natriuret Pep 552 H 265 H Impressions: Abdomen/Pelvis CT 06/24/19 21:40 IMPRESSION: Relatively unremarkable appearance of the pancreas. Ascites with nodular appearance of the deep aspect of pelvic fluid and thickening of peritoneal reflections. Underlying peritonitis is not excluded. Nodular infiltrative appearance of omentum suggests the possibility of peritoneal carcinomatosis. Chest CT 06/25/19 00:00 IMPRESSION: Large posteriorly related and right pleural effusion with right lung compressive atelectasis. Thoracentesis Ultrasound 06/27/19 00:00 IMPRESSION: SUCCESSFUL DIAGNOSTIC AND THERAPEUTIC THORACENTESIS USING ULTRASOUND GUIDANCE. Chest X-Ray 06/27/19 18:00 IMPRESSION: NO PNEUMOTHORAX 2 HOURS AFTER THORACENTESIS. Transvaginal US 06/30/19 00:00 IMPRESSION: Limited pelvic ultrasound due to bowel gas and body habitus. No definite abnormalities noted in the uterus. The ovaries and adnexae are not well evaluated. Consider pelvic MRI or CT if further evaluate if clinically indicated. Abdomen Biopsy CT 07/03/19 00:00 IMPRESSION: SUCCESSFUL CT GUIDED PARACENTESIS. Abdomen CT 07/03/19 00:00 IMPRESSION: SUCCESSFUL CT GUIDED PARACENTESIS. Guidance Needle Placement CT 07/03/19 00:00 IMPRESSION: CT GUIDED BIOPSY OF THE PERITONEAL IMPLANT PERFORMED WITHOUT IMMEDIATE COMPLICATION. PATHOLOGY PENDING. Venous Doppler Study 07/04/19 00:00 IMPRESSION: 1. Acute DVT within the left common, femoral and popliteal veins. Evaluation of distal veins limited secondary to lower extremity edema. Additional superficial venous thrombus within the small saphenous vein. 2. No evidence of DVT or SVT within the right lower extremity. Preliminary results were called to the patient's nurse at 1910 on 07/04/2019. Assessment & Plan - Diagnosis (1) Acute pancreatitis Qualifiers: Pancreatitis type: unspecified pancreatitis type Acute pancreatitis complication: unspecified Qualified Code(s): K85.90 - Acute pancreatitis without necrosis or infection, unspecified Is this a current diagnosis for this admission?: Yes (2) UTI (urinary tract infection) Qualifiers: Urinary tract infection type: site unspecified Hematuria presence: with hematuria Qualified Code(s): N39.0 - Urinary tract infection, site not specified; R31.9 - Hematuria, unspecified Is this a current diagnosis for this admission?: Yes (3) Atelectasis of right lung Is this a current diagnosis for this admission?: Yes (4) Diabetes mellitus type 2 in obese Is this a current diagnosis for this admission?: Yes (5) HTN (hypertension) Qualifiers: Hypertension type: essential hypertension Qualified Code(s): I10 - Essential (primary) hypertension Is this a current diagnosis for this admission?: Yes (6) Rheumatoid arthritis Qualifiers: Rheumatoid arthritis location: unspecified site Is this a current diagnosis for this admission?: Yes (7) Pleural effusion on right Is this a current diagnosis for this admission?: Yes (8) Acute right-sided CHF (congestive heart failure) Is this a current diagnosis for this admission?: Yes (9) Pulmonary arterial hypertension Is this a current diagnosis for this admission?: Yes (10) Primary cancer of unknown site and cell type Is this a current diagnosis for this admission?: Yes (11) Malignant ascites Is this a current diagnosis for this admission?: Yes (12) Malignant pleural effusion Is this a current diagnosis for this admission?: Yes (13) Acute deep vein thrombosis of left lower extremity Qualifiers: Affected thrombotic vein of extremity: unspecified lower extremity proximal vein Qualified Code(s): I82.4Y2 - Acute embolism and thrombosis of unspecified deep veins of left proximal lower extremity Is this a current diagnosis for this admission?: Yes Plan: Started on Eliquis 10 mg p.o bid x 7 days since last night. She will stitch to 5mg p.o bid thereafter. 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 Is this a current diagnosis for this admission?: Yes Plan: Patient ascites cytology and omental biopsy pathology suggested metastaic malignncy without known primary but favor gynecologic origin from immunostaining - Time Time Spent with patient: 25-34 minutes Level of Care: IMCU Medications reviewed and adjusted accordingly: Yes Anticipated discharge: Home with Homehealth Within: Other - Inpatient Certification Based on my medical assessment, after consideration of the patient's comorbidities, presenting symptoms, or acuity I expect that the services needed warrant INPATIENT care.: Yes I certify that my determination is in accordance with my understanding of Medicare's requirements for reasonable and necessary INPATIENT services [42 CFR 412.3e].: Yes Medical Necessity: Significant Comorbidiites Make Outpatient Treatment Too Risky , Need Close Monitoring Due to Risk of Patient Decompensation, Need For Continuous Telemetry Monitoring, Risk of Complication if Not Cared For in Hospital, Risk of Diagnosis Which Will Require Inpatient Eval/Care/Monitoring Post Hospital Care: D/C Cnc Lathe Machine Operator Documentation - Plan Summary Plan Summary: Obtain pelvic MRI with contrast for 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 She will continue her anticoagulation therapy as noted above. D/C Megace due to prothrombotic side effect.
[2019-07-05] MEDS: ZOLPIDEM TARTRATE 5 MG TABLET PO PRN (22:53)
[2019-07-06] MEDS: OXYCODONE HCL IR 5 MG TABLET PO PRN ×3 (06:29→17:07)
[2019-07-06] MEDS: PANTOPRAZOLE SODIUM 40 MG TABLET.DR PO SCH (06:29)
[2019-07-06] MEDS: INSULIN LISPRO 100 UNIT/ML 3 ML VIAL SUBCUT SCH ×3 (09:12→17:07)
[2019-07-06] MEDS: METFORMIN HCL 500 MG TABLET PO SCH ×2 (09:52→17:07)
[2019-07-06] MEDS: FUROSEMIDE 20 MG TABLET PO SCH (09:53)
[2019-07-06] MEDS: APIXABAN 5 MG TABLET PO SCH (09:53)
--- NOTE | 2019-07-06 11:17 | RADIOLOGY REPORT (SQ) ---
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 TECHNIQUE: Multiplanar multisequence imaging performed without and with contrast including axial, sa gittal and coronal T2, axial T, axial gradient fat sat T1, axial, sagittal and coronal fat sat T2 pos t contrast. CONTRAST TYPE AND DOSE: 15 mL Dotarem. RENAL FUNCTION: Not indicated. LIMITATIONS: None. FINDINGS: BLADDER AND URETHRA: Normal. PELVIC SOFT TISSUES: Omental nodules in the pelvic floor. Moderate ascites. UTERUS: Fibroids. RIGHT OVARY: Normal size. No masses. LEFT OVARY: Mixed solid and cystic lesion largely occupying the ovary. 4.6 x 4.7 x [address] margins between the medial aspect of the ovary and enhancing omental nodules. FREE FLUID: See above. PELVIC SKELETAL STRUCTURES: No abnormal marrow signal. EXTRA PELVIS SOFT TISSUES: No masses. OTHER: No other significant finding. IMPRESSION: Peritoneal carcinomatosis. Findings suspicious for left ovarian primary. TECHNICAL DOCUMENTATION: JOB ID: [id number] [employer]- All Rights Reserved Reading location - IP/workstation name: [email or web address]
[2019-07-06 19:14] VITALS: BP 130/76
--- NOTE | 2019-07-06 19:40 | PDOC DISCHARGE SUMMARY ---
Impression - Admit/DC Date/PCP Admission Date/Primary Care Provider: 06/25/19 03:01 NICOLE LUIS Discharge Date: 07/06/19 - Discharge Diagnosis (1) Acute pancreatitis Is this a current diagnosis for this admission?: Yes (2) UTI (urinary tract infection) Is this a current diagnosis for this admission?: Yes (3) Atelectasis of right lung Is this a current diagnosis for this admission?: Yes (4) Diabetes mellitus type 2 in obese Is this a current diagnosis for this admission?: Yes (5) HTN (hypertension) Is this a current diagnosis for this admission?: Yes (6) Rheumatoid arthritis Is this a current diagnosis for this admission?: Yes (7) Pleural effusion on right Is this a current diagnosis for this admission?: Yes (8) Acute right-sided CHF (congestive heart failure) Is this a current diagnosis for this admission?: Yes (9) Pulmonary arterial hypertension Is this a current diagnosis for this admission?: Yes (10) Malignant ascites Is this a current diagnosis for this admission?: Yes (11) Malignant pleural effusion Is this a current diagnosis for this admission?: Yes (12) Acute deep vein thrombosis of left lower extremity Is this a current diagnosis for this admission?: Yes (13) Malignant 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 She was get NPO for several days with eventual resolution of her serum Lipase to normal range. She subsequently resume oral feeding but intake was poor and remain challenging at the time of discharge. Her chest X ray and CT scan chest revealed moderate amount of effusion on the left side. She had thoracentesis that cytology evaluation revealed atypical cells suspicious for malignancy. Her CT scan abdomen revealed omental nodularity and ascites. CT guided paracentesis ascites fluid cytology evaluation was in concordance with her pleural effusion findings. Her pelvic MRI with contrast confirmed left ovary abnormality suggested as primary for her metastatic cancer. She developed left leg extensive DVT and currently on Eliquis therapy 10 mg po bid x 5 days and thereafter 5 mg po bid. She demonstrated left leg cellulitis features with erythema, warmth and slight tenderness today. In view of her elevated NT-Pro BNP, effusion, and leg swelling, she was evaluated for possible CHF. Her echocardiogram did revealed normal LVEF with mild RV enlargement, reduced RVEF, moderate TR regurgitation, moderate to severe pulmonary hypertension. She is adamant about discharged home today. She will be started on Bactrim DS 1 tablet po bid x 7 days. She had issue with sleeping at night and responded to Ambien 5 mg po qhs on prn bases. She will follow up with Dr. Garcia and myself as instructed upon discharge. - Additional Information Resuscitation Status: Full Code Referrals: KATELYNN GARCIA MD [ACTIVE STAFF] - (Wednesday at 2:00pm) NICOLE LUIS MD [Primary Care Provider] - 07/12/19 10:00 am (Obtain CBC at follow up visit.) Prescriptions: Zolpidem Tartrate [Ambien 5 mg Tablet] 5 mg PO HSP PRN #30 tablet PRN Reason: Apixaban [Eliquis 5 mg Tablet] 5 mg PO Q12 #70 tablet Furosemide [Lasix 20 mg Tablet] 20 mg PO DAILY #30 tablet Polyethylene Glycol 3350 [Powderlax] 17 gm PO DAILY PRN #30 powd.pack PRN Reason: For Constipation Sennosides/Docusate 8.6-50 mg [Senna Plus Tablet] 1 each PO BIDP PRN #30 tablet PRN Reason: Home Medications: Duloxetine HCl [Cymbalta] 60 mg PO DAILY 06/25/19 Folic Acid [Folvite 1 mg Tablet] 1 mg PO DAILY 06/25/19 Lisinopril [Prinivil] 20 mg PO DAILY 06/25/19 Metformin HCl [Glucophage 500 mg Tablet] 500 mg PO BID 06/25/19 Methotrexate Sodium [Rheumatrex 2.5 mg Tablet] 12.5 mg PO WE@1000 06/25/19 Apixaban [Eliquis 5 mg Tablet] 5 mg PO Q12 #70 tablet 07/06/19 Furosemide [Lasix 20 mg Tablet] 20 mg PO DAILY #30 tablet 07/06/19 Oxycodone HCl [Oxy-Ir 5 mg Tablet] 10 mg PO Q4HP PRN tablet 07/06/19 Polyethylene Glycol 3350 [Powderlax] 17 gm PO DAILY PRN #30 powd.pack 07/06/19 Sennosides/Docusate 8.6-50 mg [Senna Plus Tablet] 1 each PO BIDP PRN #30 tablet 07/06/19 Zolpidem Tartrate [Ambien 5 mg Tablet] 5 mg PO HSP PRN #30 tablet 07/06/19 History of Present Illiness History of Present Illness: ENOC WASHINGTON is a 59 year old female patient known to my practice who presented to the ED with complain of abdominal pain, nausea, and vomiting. Patient reported that her abdominal pain have been ongoing for about 2-3 months but worsen in the last couple of days with associated nausea, vomiting, poor appetite and po intake. She denied any associated diarrhea, constipation, urinary frequency, hematuria, flank pain, or dysuria. She reported episode of fall couple of days ago, attributed to generalized weakness, and sustained soft tissue injury with right side chest wall and left proximal thigh bruises. She denied hitting her head, headache, or dizziness. Her initial evaluation in the ED was significant for elevated serum Lipase, Alkaline phosphates, NT-Pro BNP, abnormal urinalysis, Abdomen and pelvic CT scan suggested pelvic ascites with peritoneal omentum appearance worrisome for carcinomatous. She was advised hospitalization for further evaluation and management. Her medical morbidities are as listed below. Hospital Course Hospital Course: Patient was admitted for abdominal pain, nausea, vomiting with elevated serum Lipase suggestive of acute pancreatitis. She was get NPO for several days with eventual resolution of her serum Lipase to normal range. She subsequently resume oral feeding but intake was poor and remain challenging at the time of discharge. Her chest X ray and CT scan chest revealed moderate amount of effusion on the left side. She had thoracentesis that cytology evaluation revealed atypical cells suspicious for malignancy. Her CT scan abdomen revealed omental nodularity and ascites. CT guided paracentesis ascites fluid cytology evaluation was in concordance with her pleural effusion findings. Her pelvic MRI with contrast confirmed left ovary abnormality suggested as primary for her metastatic cancer. She developed left leg extensive DVT and currently on Eliquis therapy 10 mg po bid x 5 days and thereafter 5 mg po bid. She demonstrated left leg cellulitis features with erythema, warmth and slight tenderness today. In view of her elevated NT-Pro BNP, effusion, and leg swelling, she was evaluated for possible CHF. Her echocardiogram did revealed normal LVEF with mild RV enlargement, reduced RVEF, moderate TR regurgitation, moderate to severe pulmonary hypertension. She is adamant about discharged home today. She will be started on Bactrim DS 1 tablet po bid x 7 days. She had issue with sleeping at night and responded to Ambien 5 mg po qhs on prn bases. She will follow up with Dr. Garcia and myself as instructed upon discharge. Physical Exam Vital Signs: Temp Pulse Resp BP Pulse Ox 98.1 F 115 H 18 93/50 L 96 07/06/19 16:30 07/06/19 16:30 07/06/19 16:30 07/06/19 16:30 07/06/19 16:30 Intake & Output 07/05/19 07/06/19 07/07/19 06:59 06:59 06:59 Intake Total 960 506 598 Balance 960 506 598 Weight 93.9 kg 94.7 kg General appearance: PRESENT: no acute distress, obese Head exam: PRESENT: atraumatic, normocephalic Eye exam: PRESENT: conjunctiva pink. ABSENT: pallor, scleral icterus Ear exam: PRESENT: normal external ear exam Mouth exam: PRESENT: moist Respiratory exam: PRESENT: clear to auscultation clark, decreased breath sounds - at lung bases Cardiovascular exam: PRESENT: RRR, +S1, +S2. ABSENT: diastolic murmur, rubs, systolic murmur GI/Abdominal exam: PRESENT: normal bowel sounds, soft. Tenderness LLQ to palp ation. ABSENT: distended, guarding, mass, organomegaly, rebound Extremities exam: PRESENT: bilateral pedal edema, left >> right. Musculoskeletal exam: PRESENT: ambulatory Neurological exam: PRESENT: alert, awake, oriented to person, oriented to place, oriented to time, oriented to situation, CN II-XII grossly intact. ABSENT: motor sensory deficit Psychiatric exam: PRESENT: appropriate affect, normal mood. ABSENT: homicidal ideation, suicidal ideation Skin exam: PRESENT: dry, warm, other - resolving ecchymosis over right anterior chest wall and left medial thigh region. There is erythema involving left leg anterior aspect, warm to touch with some degree of tenderness. Results Laboratory Results: WBC 12.9 10^3/uL (4.0-10.5) H 07/04/19 05:35 RBC 4.15 10^6/uL (3.72-5.28) 07/04/19 05:35 Hgb 11.2 g/dL (12.0-15.5) L 07/04/19 05:35 Hct 33.4 % (36.0-47.0) L 07/04/19 05:35 MCV 81 fl (80-97) 07/04/19 05:35 MCH 27.0 pg (27.0-33.4) 07/04/19 05:35 MCHC 33.6 g/dL (32.0-36.0) 07/04/19 05:35 RDW 14.7 % (11.5-14.0) H 07/04/19 05:35 Plt Count 349 10^3/uL (150-450) 07/04/19 05:35 Lymph % (Auto) 8.9 % (13-45) L 07/04/19 05:35 [place] % (Auto) 10.2 % (3-13) 07/04/19 05:35 Eos % (Auto) 1.9 % (0-6) 07/04/19 05:35 Baso % (Auto) 1.2 % (0-2) 07/04/19 05:35 Absolute Neuts (auto) 10.0 10^3/uL (1.7-8.2) H 07/04/19 05:35 Absolute Lymphs (auto) 1.1 10^3/uL (0.5-4.7) 07/04/19 05:35 Absolute Monos (auto) 1.3 10^3/uL (0.1-1.4) 07/04/19 05:35 Absolute Eos (auto) 0.2 10^3/uL (0.0-0.6) 07/04/19 05:35 Absolute Basos (auto) 0.2 10^3/uL (0.0-0.2) 07/04/19 05:35 Seg Neutrophils % 77.8 % (42-78) 07/04/19 05:35 PT 18.4 SEC (11.4-15.4) H 07/02/19 11:30 INR 1.52 07/02/19 11:30 APTT 31.2 SEC (23.5-35.8) 06/27/19 04:07 Sodium 130.7 mmol/L (137-145) L 07/04/19 05:35 Potassium 4.0 mmol/L (3.6-5.0) 07/04/19 05:35 Chloride 96 mmol/L (98-107) L 07/04/19 05:35 Carbon Dioxide 28 mmol/L (22-30) 07/04/19 05:35 Anion Gap 7 (5-19) 07/04/19 05:35 BUN 14 mg/dL (7-20) 07/04/19 05:35 Creatinine 0.45 mg/dL (0.52-1.25) L 07/04/19 05:35 Est GFR ( Amer) > 60 (>60) 07/04/19 05:35 Est GFR (MDRD) Non-Af > 60 (>60) 07/04/19 05:35 Glucose 165 mg/dL (75-110) H 07/04/19 05:35 POC Glucose 186 mg/dL (70-110) H 07/06/19 16:51 Calcium 8.4 mg/dL (8.4-10.2) 07/04/19 05:35 Magnesium 2.1 mg/dL (1.6-2.3) 06/24/19 20:35 Total Bilirubin 0.4 mg/dL (0.2-1.3) 07/04/19 05:35 Direct Bilirubin 0.1 mg/dL (0.0-0.4) 07/04/19 05:35 Neonat Total Bilirubin Not Reportable 07/04/19 05:35 Neonat Direct Bilirubin Not Reportable 07/04/19 05:35 Neonat Indirect Bili Not Reportable 07/04/19 05:35 AST 13 U/L (14-36) L 07/04/19 05:35 ALT 10 U/L (<35) 07/04/19 05:35 Alkaline Phosphatase 120 U/L (38-126) 07/04/19 05:35 Lactate Dehydrogenase 211 U/L (120-246) 06/27/19 09:14 Creatine Kinase < 20 U/L (30-135) L 06/24/19 20:35 Troponin I 0.054 ng/mL 06/24/19 20:35 NT-Pro-B Natriuret Pep 265 pg/mL (<125) H 06/27/19 04:07 Total Protein 5.1 g/dL (6.3-8.2) L 07/04/19 05:35 Albumin 2.5 g/dL (3.5-5.0) L 07/04/19 05:35 Amylase 40 U/L (30-110) 06/27/19 09:14 Lipase 152.9 U/L (23-300) 07/04/19 05:35 Carcinoembryonic Ag 1.49 ng/mL (<3.0) 06/30/19 05:13 CA 19-9 Antigen 1465 U/mL (0-35) H 06/30/19 05:13 CA 125 Antigen 465.0 U/mL (0.0-38.1) H 06/30/19 05:13 TSH 2.48 uIU/mL (0.47-4.68) 06/24/19 20:35 Urine Color CARROL 06/24/19 21:30 Urine Appearance CLOUDY 06/24/19 21:30 Urine pH 5.0 (5.0-9.0) 06/24/19 21:30 Ur Specific [place] 1.016 06/24/19 21:30 Urine Protein 100 mg/dL (NEGATIVE) H 06/24/19 21:30 Urine Glucose (UA) 50 mg/dL (NEGATIVE) H 06/24/19 21:30 Urine Ketones NEGATIVE mg/dL (NEGATIVE) 06/24/19 21:30 Urine Blood LARGE (NEGATIVE) H 06/24/19 21:30 Urine Nitrite NEGATIVE (NEGATIVE) 06/24/19 21:30 Urine Bilirubin NEGATIVE (NEGATIVE) 06/24/19 21:30 Urine Urobilinogen NEGATIVE mg/dL (<2.0) 06/24/19 21:30 Ur Leukocyte Esterase MODERATE (NEGATIVE) H 06/24/19 21:30 Urine WBC (Auto) 46 /HPF 06/24/19 21:30 Urine RBC (Auto) >182 /HPF 06/24/19 21:30 U Hyaline Cast (Auto) 36 /LPF 06/24/19 21:30 Urine Bacteria (Auto) 3+ /HPF 06/24/19 21:30 Squamous Epi Cells Auto 2 /HPF 06/24/19 21:30 Amorphous Sediment Auto TRACE /HPF 06/24/19 21:30 Urine Mucus (Auto) MANY /LPF 06/24/19 21:30 Urine Ascorbic Acid NEGATIVE (NEGATIVE) 06/24/19 21:30 Fluid Type PLEURAL 06/27/19 15:45 Fluid Source LUNG 06/27/19 15:45 Fluid Color RED 06/27/19 15:45 Fluid Appearance CLOUDY 06/27/19 15:45 Fluid Viscosity SLIGHTLY VISCOUS 06/27/19 15:45 Fluid WBC 1597 /uL 06/27/19 15:45 Fluid RBC 33177 /uL 06/27/19 15:45 Fluid Seg Neutrophils 4 % 06/27/19 15:45 Fluid Lymphocytes 96 % 06/27/19 15:45 Fluid Monocytes 0 % 06/27/19 15:45 Fluid Eosinophils 0 % 06/27/19 15:45 Fluid Basophils 0 % 06/27/19 15:45 Fluid Glucose 158 mg/dL (.) 06/27/19 15:45 Fluid Total Protein 4.1 g/dL (.) 06/27/19 15:45 Fluid LDH 301 IU/L (.) 06/27/19 15:45 Fluid Amylase 22 U/L (.) 06/27/19 15:45 06/24/19 06/27/19 20:35 04:07 Troponin I 0.054 NT-Pro-B Natriuret Pep 552 H 265 H Impressions: Chest X-Ray 06/24/19 20:04 IMPRESSION: 1. Small right pleural effusion with partial right lower lobe atelectasis. Abdomen/Pelvis CT 06/24/19 21:40 IMPRESSION: Relatively unremarkable appearance of the pancreas. Ascites with nodular appearance of the deep aspect of pelvic fluid and thickening of peritoneal reflections. Underlying peritonitis is not excluded. Nodular infiltrative appearance of omentum suggests the possibility of peritoneal carcinomatosis. Chest CT 06/25/19 00:00 IMPRESSION: Large posteriorly related and right pleural effusion with right lung compressive atelectasis. Thoracentesis Ultrasound 06/27/19 00:00 IMPRESSION: SUCCESSFUL DIAGNOSTIC AND THERAPEUTIC THORACENTESIS USING ULTRASOUND GUIDANCE. Chest X-Ray 06/27/19 16:00 IMPRESSION: No pneumothorax status post thoracentesis. Chest X-Ray 06/27/19 18:00 IMPRESSION: NO PNEUMOTHORAX 2 HOURS AFTER THORACENTESIS. Transvaginal US 06/30/19 00:00 IMPRESSION: Limited pelvic ultrasound due to bowel gas and body habitus. No definite abnormalities noted in the uterus. The ovaries and adnexae are not well evaluated. Consider pelvic MRI or CT if further evaluate if clinically indicated. Abdomen Biopsy CT 07/03/19 00:00 IMPRESSION: SUCCESSFUL CT GUIDED PARACENTESIS. Abdomen CT 07/03/19 00:00 IMPRESSION: SUCCESSFUL CT GUIDED PARACENTESIS. Guidance Needle Placement CT 07/03/19 00:00 IMPRESSION: CT GUIDED BIOPSY OF THE PERITONEAL IMPLANT PERFORMED WITHOUT IMMEDIATE COMPLICATION. PATHOLOGY PENDING. Venous Doppler Study 07/04/19 00:00 IMPRESSION: 1. Acute DVT within the left common, femoral and popliteal veins. Evaluation of distal veins limited secondary to lower extremity edema. Additional superficial venous thrombus within the small saphenous vein. 2. No evidence of DVT or SVT within the right lower extremity. Preliminary results were called to the patient's nurse at 1910 on 07/04/2019. Pelvis MRI 07/06/19 08:00 IMPRESSION: Peritoneal carcinomatosis. Findings suspicious for left ovarian primary. Plan Health Concerns: Newly diagnosed metastatic ovarian cancer with omental involvement, malignant pleural effusion and ascites. New left leg DVT and left leg cellulitis. Plan of Treatment: Follow up with Dr. Garcia, gynecologic oncology surgeon, an myself as instructed during post acute follow up visits. Goals: Continue chronic disease management as we work with patient on treating her newly diagnosed issues. Time Spent: Greater than 30 Minutes - Care coordination and plan discussion with patient and spouse at bedside. Stroke Is this a Stroke Patient?: No Acute Heart Failure - Is this a Heart Failure Patient?: No
[2019-07-06] MEDS: ZOLPIDEM TARTRATE 5 MG TABLET PO PRN (19:45)
== END 2019-07-06 20:16 | disposition home or self-care (01) | DRG 754 ==
LOC: ER 19:06 → EH 06-25 03:01 → 3S 06-25 04:28
PROVIDERS: ADMIT Internal Medicine Geriatric Medicine; ATTEND Internal Medicine Geriatric Medicine
PROC: 0W993ZX Drainage of Right Pleural Cavity, Percutaneous Approach, Diagnostic (ICD-10-PCS; 2019-06-27)
PROC: 0DBU3ZX Excision of Omentum, Percutaneous Approach, Diagnostic (ICD-10-PCS; principal; 2019-07-03)
PROC: 0W9G3ZX Drainage of Peritoneal Cavity, Percutaneous Approach, Diagnostic (ICD-10-PCS; 2019-07-03)
DX: C56.2 Malignant neoplasm of left ovary (principal); K85.90 Acute pancreatitis without necrosis or infection, unspecified; N39.0 Urinary tract infection, site not specified; R18.0 Malignant ascites; I82.4Y2 Acute embolism and thrombosis of unspecified deep veins of left proximal lower extremity; L03.116 Cellulitis of left lower limb; J98.11 Atelectasis; C78.6 Secondary malignant neoplasm of retroperitoneum and peritoneum; J91.0 Malignant pleural effusion; C80.1 Malignant (primary) neoplasm, unspecified; G89.3 Neoplasm related pain (acute) (chronic); R31.9 Hematuria, unspecified; M06.9 Rheumatoid arthritis, unspecified; I50.811 Acute right heart failure; I11.0 Hypertensive heart disease with heart failure; I27.20 Pulmonary hypertension, unspecified; F41.8 Other specified anxiety disorders; F17.210 Nicotine dependence, cigarettes, uncomplicated; I27.21 Secondary pulmonary arterial hypertension; I07.1 Rheumatic tricuspid insufficiency; S20.211A Contusion of right front wall of thorax, initial encounter; S70.12XA Contusion of left thigh, initial encounter; W19.XXXA Unspecified fall, initial encounter; Z79.84 Long term (current) use of oral hypoglycemic drugs; Z90.49 Acquired absence of other specified parts of digestive tract; Z79.899 Other long term (current) drug therapy
CPT/HCPCS: 32555; 36415; 49083; 49180; 71045; 71046; 71260; 72197; 74177; 76830; 77012; 80053; 81001; 82150; 82378; 82550; 82945; 82962; 83615; 83690; 83735; 83880; 84157; 84443; 84484; 85025; 85610; 85730; 86301; 86304; 87040; 87086; 88305; 88341; 88342; 89050; 93005; 93010; 93306; 93970; 93976; 94799; 96365; 96375; 99285; A9576; C9113; J0696; J1815; J1940; J2250; J2270; J2405; J3010; J3480; J3490; J7030; J7042; S0028

== ENCOUNTER 2019-07-16 21:24 | Inpatient (IN) | payer BC ==
[2019-07-16] MEDS ORDERED: NALOXONE HCL INJ/PF 0.4 MG/1 ML SDV ONE (21:32)
[2019-07-16 22:22] LABS: HEMATOCRIT 31.4 % (36.0-47.0); HEMOGLOBIN 10.1 g/dL (12.0-15.5); MEAN CORPUSCULAR HEMOGLOBIN 26.9 pg (27.0-33.4); MEAN CORPUSCULAR HGB CONC 32.2 g/dL (32.0-36.0); MEAN CORPUSCULAR VOLUME 83 fl (80-97); PLATELET COUNT 857 10^3/uL (150-450); RED BLOOD COUNT 3.77 10^6/uL (3.72-5.28); RED CELL DISTRIBUTION WIDTH 16.7 % (11.5-14.0); WHITE BLOOD COUNT 24.8 10^3/uL (4.0-10.5)
[2019-07-16] MEDS ORDERED: NALOXONE HCL INJ/PF 0.4 MG/1 ML SDV IV ONE (22:26)
[2019-07-16 22:31] LABS: ALBUMIN 3.1 g/dL (3.5-5.0); ALKALINE PHOSPHATASE 249 U/L (38-126); ANION GAP 19 (5-19); ASPARTATE AMINO TRANSFERASE 75 U/L (14-36); BILIRUBIN,DIRECT 0.3 mg/dL (0.0-0.4); BILIRUBIN,TOTAL 0.5 mg/dL (0.2-1.3); BLOOD UREA NITROGEN 100 mg/dL (7-20); CALCIUM 8.6 mg/dL (8.4-10.2); CARBON DIOXIDE 17 mmol/L (22-30); CHLORIDE 93 mmol/L (98-107); GLUCOSE 156 mg/dL (75-110); TOTAL PROTEIN 6.2 g/dL (6.3-8.2)
[2019-07-16 22:38] LABS: ABSOLUTE LYMPHOCYTES# (MANUAL) 0.7 10^3/uL (0.5-4.7); ABSOLUTE MONOCYTES # (MANUAL) 0.5 10^3/uL (0.1-1.4); ANISOCYTOSIS 1+; BAND NEUTROPHILS % (MANUAL) 4 % (3-5); BASOPHILS % (MANUAL) 0 % (0-2); EOSINOPHILS % (MANUAL) 0 % (0-6); LYMPHOCYTES % (MANUAL) 3 % (13-45); MONOCYTES % (MANUAL) 2 % (3-13); PLATELET COMMENT INCREASED; POLYCHROMASIA 1+; SEGMENTED NEUTROPHILS % (MAN) 91 % (42-78); TOTAL CELLS COUNTED 100
[2019-07-16] MEDS ORDERED: NORMAL SALINE 1000 ML 1,000 ML IV ONE (22:39)
[2019-07-16] MEDS ORDERED: PIPERACILLIN/TAZOBACTAM 4.5 GM VIAL IV ONE (22:42)
[2019-07-16] MEDS ORDERED: NORMAL SALINE IV ONE (22:45)
[2019-07-16 22:46] LABS: ALCOHOL < 10 mg/dL (NONE DETECTED)
[2019-07-16 22:49] LABS: POTASSIUM 7.7 mmol/L (3.6-5.0)
[2019-07-16] MEDS ORDERED: CALCIUM GLUCONATE 1000 MG/10 ML INJ IV ONE (23:03)
[2019-07-16] MEDS ORDERED: DEXTROSE 50%-WATER 25 GM/50 ML DISP.SYRIN IV ONE (23:08)
[2019-07-16] MEDS ORDERED: INSULIN REG, HUMAN 100 UNIT/ML 3 ML VIAL (PYX) IV ONE (23:08)
[2019-07-16] MEDS ORDERED: SODIUM BICARBONATE 8.4% INJ 50 MEQ/50 ML DISP.SYRIN IV ONE (23:09)
[2019-07-16] MEDS ORDERED: SODIUM POLYSTYRENE SULFONATE 15 GM/60 ML PO ONE (23:09)
[2019-07-16] MEDS ORDERED: SODIUM POLYSTYRENE SULFONATE 15 GM/60 ML PR ONE (23:12)
--- NOTE | 2019-07-16 23:13 | ER Document Report ---
Entered by ARSLAN BROWN SCRIBE 07/16/19 2244 Acting as scribe for:LILLY GAUTHIER IV, MD ED General - General Chief Complaint: Altered Mental Status Stated Complaint: CHEST PAIN Primary Care Provider: NICLOE LUIS MD [Primary Care Provider] - Follow up as needed Mode of Arrival: Wheelchair Information source: Relative - Notes: This 59 year old female patient presents to the ED today with complaints of altered mental status that occurred prior to arrival per the . states that the patient has been altered for the last couple of hours and felt cool to the touch. He reports a past medical history of DVT in LLE, pancreatitis, rheumatoid arthritis, type 2 diabetes, and recently diagnosed stage IV ovarian cancer. states that the patient has not started chemotherapy yet and is supposed to start this week. reports that the patient takes Eliquis BID, Oxycodone, and 500 mg Metformin BID. He notes that the patient last took Oxycodone 5 mg around 2000 tonight. TRAVEL OUTSIDE OF THE [place] IN LAST 30 DAYS: No - Related Data Allergies/Adverse Reactions: No Known Allergies Allergy (Verified 10/07/16 09:57) Past Medical History - General Information source: Relative - - Social History Smoking Status: Unknown if Ever Smoked Cigarette use (# per day): No Chew tobacco use (# tins/day): No Smoking Education Provided: No Lives with: Spouse/Significant other Family History: Reviewed & Not Pertinent Patient has suicidal ideation: No Patient has homicidal ideation: No - Past Medical History Cardiac Medical History: Reports: Hx DVT, Hx Hypertension Endocrine Medical History: Reports: Hx Diabetes Mellitus Type 2 Malignancy Medical History: Reports: Hx Ovarian Cancer - Stage IV GI Medical History: Reports: Hx Pancreatitis Musculoskeletal Medical History: Reports Hx Arthritis - RA Psychiatric Medical History: Reports: Hx Anxiety Past Surgical History: Reports: Hx Cholecystectomy - Immunizations Hx Diphtheria, Pertussis, Tetanus Vaccination: Yes Hx Pneumococcal Vaccination: 04/19/18 Review of Systems - Review of Systems Constitutional: No symptoms reported EENT: No symptoms reported Cardiovascular: No symptoms reported Respiratory: No symptoms reported Gastrointestinal: No symptoms reported Genitourinary: No symptoms reported Female Genitourinary: No symptoms reported Musculoskeletal: No symptoms reported Skin: See HPI, Other - Cool to the touch Hematologic/Lymphatic: No symptoms reported Neurological/Psychological: See HPI, Other - Altered mental status Physical Exam - Vital signs Vitals: Resp BP 14 91/59 L 07/16/19 21:24 07/16/19 21:24 - General General appearance: Other - Initially obtunded with agonal respirations. After 0.4 mg Narcan, patient had more purposeful movements and her respirations increased. - HEENT Head: Normocephalic, Atraumatic Eyes: Normal Pupils: PERRL - Respiratory Respiratory status: Agonal respirations Chest status: Nontender Breath sounds: Normal Chest palpation: Normal - Cardiovascular Rhythm: Regular, Tachycardia Heart sounds: Normal auscultation Murmur: No Friction rub: No Gallop: None auscultated - Abdominal Inspection: Normal Distension: No distension Bowel sounds: Hypoactive Tenderness: Nontender - Abdomen soft Organomegaly: No organomegaly - Back Back: Normal, Nontender - Extremities General upper extremity: Normal inspection General lower extremity: Other - LLE from the knee down is swollen and erythematous compared to the right - Neurological Neuro grossly intact: Yes - Psychological Associated symptoms: Other - Altered mental status - Skin Skin Temperature: Warm Skin Moisture: Dry Skin Color: Normal Course - Vital Signs Vital signs: Temp Pulse Resp BP Pulse Ox 97.5 F 9 L 83/49 L 97 07/16/19 22:51 07/17/19 04:51 07/17/19 04:51 07/17/19 04:51 - Laboratory Result Diagrams: 07/16/19 21:55 07/16/19 21:55 Laboratory results interpreted by me: 07/16/19 07/16/19 07/16/19 21:37 21:55 21:55 WBC 24.8 H Hgb 10.1 L Hct 31.4 L MCH 26.9 L RDW 16.7 H Plt Count 857 H Seg Neuts % (Manual) 91 H Lymphocytes % (Manual) 3 L Monocytes % (Manual) 2 L Abs Neuts (Manual) 23.6 H PT ABG pH ABG pO2 ABG HCO3 ABG Total CO2 Sodium 128.9 L Potassium 7.7 H* Chloride 93 L Carbon Dioxide 17 L BUN 100 H Creatinine 6.32 H Est GFR ( Amer) 8 L Est GFR (MDRD) Non-Af 7 L Glucose 156 H POC Glucose 156 H Lactic Acid Magnesium 2.8 H AST 75 H ALT 36 H Alkaline Phosphatase 249 H Total Protein 6.2 L Albumin 3.1 L Urine Protein Urine Glucose (UA) Urine Blood Ur Leukocyte Esterase 07/16/19 07/17/19 07/17/19 21:55 02:11 03:11 WBC Hgb Hct MCH RDW Plt Count Seg Neuts % (Manual) Lymphocytes % (Manual) Monocytes % (Manual) Abs Neuts (Manual) PT ABG pH 7.22 L ABG pO2 106.6 H ABG HCO3 17.9 L ABG Total CO2 19.2 L Sodium Potassium Chloride Carbon Dioxide BUN Creatinine Est GFR ( Amer) Est GFR (MDRD) Non-Af Glucose POC Glucose 182 H Lactic Acid 4.1 H Magnesium AST ALT Alkaline Phosphatase Total Protein Albumin Urine Protein Urine Glucose (UA) Urine Blood Ur Leukocyte Esterase 07/17/19 07/17/19 03:13 04:20 WBC Hgb Hct MCH RDW Plt Count Seg Neuts % (Manual) Lymphocytes % (Manual) Monocytes % (Manual) Abs Neuts (Manual) PT 39.8 H ABG pH ABG pO2 ABG HCO3 ABG Total CO2 Sodium Potassium Chloride Carbon Dioxide BUN Creatinine Est GFR ( Amer) Est GFR (MDRD) Non-Af Glucose POC Glucose Lactic Acid Magnesium AST ALT Alkaline Phosphatase Total Protein Albumin Urine Protein 100 H Urine Glucose (UA) 150 H Urine Blood MODERATE H Ur Leukocyte Esterase SMALL H - Diagnostic Test Radiology reviewed: Reports reviewed - EKG Interpretation by Me Additional EKG results interpreted by me: 07/17/19 01:30 EKG obtained on 07/16/2019 at 2304 hrs. was interpreted by this MD. Findings: Sinus rhythm, rate 97, normal axis, P waves proceed QRS complexes, QRS complexes appear narrow, there are no obvious ST segment patterns of elevation or depression present to suggest acute myocardial ischemia or infarction. Impression: Sinus rhythm with nonspecific ST segments. - Consults светлана zhao, informatics developer service Time consulted: 00:34 Consulted provider: will come to ER светлана eckert, icu Time consulted: 05:05 - светлана eckert accepted pt on behalf of dr lee, informatics developer Reason for consultation: 07/17/19 05:05 hypotension, renal failure, sepsis Procedures - Central Line Left Internal jugular Time completed: 22:20 - unsuccessful Consent obtained: Yes - verbal consent given by at bedside Central line pre-insertion: Sterile PPE donned, Chloraprep applied, Sterile drapes applied Central line lumen type: Triple Anesthetic type: 1% Lidocaine mL's of anesthesia: 4 Ultrasound guided: Yes Number of attempts: 3 Complications: No Notes: 07/16/19 22:38 unsuccessful Left Femoral Time completed: 00:35 - unsuccessful Consent obtained: Yes - verbal consent from Central line pre-insertion: Sterile PPE donned, Chloraprep applied, Sterile drapes applied Anesthetic type: 2% Lidocaine mL's of anesthesia: 5 Ultrasound guided: Yes Number of attempts: 3 Notes: 07/17/19 00:36 unsuccessful Critical Care Note - Critical Care Note Total time excluding time spent on procedures (mins): 120 Discharge - Discharge Clinical Impression: Hyperkalemia Acute renal failure Qualifiers: Acute renal failure type: unspecified Qualified Code(s): N17.9 - Acute kidney failure, unspecified Sepsis Qualifiers: Sepsis type: sepsis due to unspecified organism Sepsis acute organ dysfunction status: unspecified Qualified Code(s): A41.9 - Sepsis, unspecified organism Condition: Critical Disposition: ADMITTED INPATIENT Admitting Provider: Jose (Program Director Substance Abuse) Unit Admitted: ICU Referrals: NICOLE LUIS MD [Primary Care Provider] - Follow up as needed I personally performed the services described in the documentation, reviewed and edited the documentation which was dictated to the scribe in my presence, and it accurately records my words and actions.
--- NOTE | 2019-07-16 23:14 | RADIOLOGY REPORT (SQ) ---
CT HEAD WITHOUT IV CONTRAST EXAM DATE: 07/16/2019 10:27 PM CDT HISTORY: Altered mental status. COMPARISON: None. TECHNIQUE: CT scan of the brain without IV contrast. This exam was performed according to our departmental dose-optimization program, which includes automated exposure control, adjustment of the mA and/or kV according to patient size and/or use of iterative reconstruction technique. FINDINGS: There is an old lacunar infarct in the right basal ganglia. No evidence of acute infarction, intracranial hemorrhage, extra-axial fluid collection, or midline shift. No air-fluid levels are seen in the paranasal sinuses to suggest acute sinusitis. No depressed skull fracture. IMPRESSION: No acute intracranial findings.
--- NOTE | 2019-07-16 23:27 | RADIOLOGY REPORT (SQ) ---
XR CHEST 1 VIEW EXAM DATE: 07/16/2019 10:27 PM CDT HISTORY: Altered mental status. COMPARISON: 06/27/2019 FINDINGS: The heart size is within normal limits. There is no pulmonary vascular congestion. No consolidation, pleural effusion, or pneumothorax is seen. IMPRESSION: No evidence of acute cardiopulmonary disease.
[2019-07-16] MEDS ORDERED: LIDOCAINE 2% INJ (20 MG/ML) 20 ML MDV INJ ONE (23:48)
[2019-07-17 02:21] LABS: ARTERIAL BLOOD BASE EXCESS -9.3 mmol/L; ARTERIAL BLOOD H2CO3 1.34 mmol/L (1.05-1.35); ARTERIAL BLOOD HCO3 17.9 mmol/L (20-24); ARTERIAL BLOOD O2 SATURATION 96.9 % (94-98); ARTERIAL BLOOD PCO2 44.4 mmHg (35-45); ARTERIAL BLOOD PH 7.22 (7.35-7.45); ARTERIAL BLOOD PO2 106.6 mmHg (80-100); ARTERIAL BLOOD TOTAL CO2 19.2 mmol/L (21-25)
[2019-07-17 02:23] LABS: ARTERIAL BLOOD FIO2 45%
[2019-07-17] MEDS ORDERED: NORMAL SALINE 1000 ML 500 ML IV ONE (02:34)
[2019-07-17] MEDS ORDERED: IPRATROPIUM/ALBUTEROL 0.5-2.5 MG/3 ML AMPUL NEB ONE ×2 (02:34→03:03)
[2019-07-17] MEDS ORDERED: NORMAL SALINE 500 ML IV ONE ×2 (03:03→09:30)
[2019-07-17 03:45] LABS: INTERNATIONAL RATION (INR) 3.97; PROTHROMBIN TIME 39.8 SEC (11.4-15.4)
[2019-07-17 04:44] LABS: APPEARANCE,URINE CLOUDY; BILIRUBIN,URINE NEGATIVE (NEGATIVE); COLOR,URINE AMBER; GLUCOSE, URINE 150 mg/dL (NEGATIVE); KETONES,URINE NEGATIVE (NEGATIVE); LEUKOCYTE ESTERASE,URINE SMALL (NEGATIVE); NITRITE,URINE NEGATIVE (NEGATIVE); PROTEIN,URINE 100 mg/dL (NEGATIVE); URINE SPECIFIC GRAVITY 1.019; UROBILINOGEN,URINE NEGATIVE mg/dL (<2.0)
[2019-07-17 04:55] LABS: URINE AMPHETAMINES SCREEN NEGATIVE; URINE BARBITURATES SCREEN NEGATIVE; URINE BENZODIAZEPINES SCREEN NEGATIVE; URINE COCAINE SCREEN NEGATIVE; URINE MARIJUANA (THC) SCREEN NEGATIVE; URINE METHADONE SCREEN NEGATIVE; URINE PHENCYCLIDINE SCREEN NEGATIVE
[2019-07-17 04:56] LABS: ANION GAP 12 (5-19); BLOOD UREA NITROGEN 94 mg/dL (7-20); CALCIUM 7.2 mg/dL (8.4-10.2); CARBON DIOXIDE 20 mmol/L (22-30); CHLORIDE 99 mmol/L (98-107); GLUCOSE 145 mg/dL (75-110)
[2019-07-17 05:06] LABS: POTASSIUM 6.1 mmol/L (3.6-5.0)
[2019-07-17] MEDS ORDERED: DEXTROSE 40% GEL 15 GM TUBE PO PRN ×2 (05:12)
[2019-07-17] MEDS ORDERED: DEXTROSE 50%-WATER 25 GM/50 ML DISP.SYRIN IV PRN ×2 (05:12)
[2019-07-17] MEDS ORDERED: GLUCAGON,HUMAN RECOMB 1 MG INJ IM PRN (05:12)
[2019-07-17] MEDS ORDERED: DEXTROSE 50%-WATER 25 GM/50 ML DISP.SYRIN IV ONE ×2 (05:20→23:37)
[2019-07-17] MEDS ORDERED: CALCIUM GLUCONATE 1000 MG/10 ML INJ IV ONE ×2 (05:20→21:30)
[2019-07-17] MEDS ORDERED: INSULIN REG, HUMAN 100 UNIT/ML 3 ML VIAL (PYX) IV ONE ×2 (05:20→23:37)
[2019-07-17] MEDS ORDERED: NOREPINEPHRINE BITARTRATE INJ/PF 4 MG/4 ML SDV IV ONE (05:28)
[2019-07-17] MEDS: DEXTROSE 5%-WATER 250 ML with NOREPINEPHRINE BITARTRATE 4 MG IV PRN ×6 (05:43→20:29)
[2019-07-17] MEDS ORDERED: HEPARIN SOD (PORCINE) 5,000 UNIT/ML 1 ML VIAL SUBCUT SCH (06:00)
[2019-07-17] MEDS ORDERED: ERTAPENEM SODIUM INJ 1 GM VIAL IV SCH (06:00)
[2019-07-17] MEDS ORDERED: ERTAPENEM SODIUM INJ 1 GM VIAL IV PRN (06:10)
[2019-07-17] MEDS: INSULIN REG, HUMAN 100 UNIT/ML 3 ML VIAL (PYX) SUBCUT SCH ×4 (06:13→23:40)
[2019-07-17] MEDS ORDERED: ERTAPENEM SODIUM 0.5 GM in NORMAL SALINE 50 ML IV ONE (06:15)
--- NOTE | 2019-07-17 06:29 | EKG REPORT ---
SEVERITY:- ABNORMAL ECG - SINUS RHYTHM LEFT ANTERIOR FASCICULAR BLOCK BORDERLINE R WAVE PROGRESSION, ANTERIOR LEADS : Confirmed by: Eric Nuñez MD 17-Jul-2019 06:28:38
--- NOTE | 2019-07-17 08:25 | PDOC CONSULTATION ---
Consultation Consult Date: 07/17/19 Attending physician:: DHIRAJ TRIVEDI Provider Consulted: KATELYNN GARCIA Consult reason:: Alerted by forensic investigator team that pt admitted w/ septic shock, has newly diagnosed stage IV ovarian ca History of Present Illness Admission Date/PCP: 07/17/19 05:21 NICOLE LUIS Patient complains of: Weakness, confusion History of Present Illness: ENOC WASHINGTON is a 59 year old female with recently diagnosed stage IV ovarian ca. She has pleural, omental involvement along w/ L ovarian mass. We saw her last week and gave her IVF and were preparing to initiate systemic chemo but pt worsened over weekend, became more lethargic, upon admit was in ARF, hypotensive, admitted to ICU on pressors currently. Past Medical History Cardiac Medical History: Reports: DVT, Hypertension Endocrine Medical History: Reports: Diabetes Mellitus Type 2 Malignancy Medical History: Reports: Ovarian Cancer - Stage IV Musculoskeltal Medical History: Reports: Arthritis - RA Past Surgical History Past Surgical History: Reports: Cholecystectomy Social History Lives with: Spouse/Significant other Smoking Status: Unknown if Ever Smoked Number of Years Smokin Frequency of Alcohol Use: None Hx Recreational Drug Use: No Hx Prescription Drug Abuse: No - Advance Directive Resuscitation Status: Full Code Family History Family History: Reviewed & Not Pertinent Parental Family History Reviewed: Yes Children Family History Reviewed: Yes Sibling(s) Family History Reviewed.: Yes Medication/Allergy Home Medications: Duloxetine HCl [Cymbalta] 60 mg PO DAILY 06/25/19 Folic Acid [Folvite 1 mg Tablet] 1 mg PO DAILY 06/25/19 Lisinopril [Prinivil] 20 mg PO DAILY 06/25/19 Metformin HCl [Glucophage 500 mg Tablet] 500 mg PO BID 06/25/19 Methotrexate Sodium [Rheumatrex 2.5 mg Tablet] 12.5 mg PO WE@1000 06/25/19 Apixaban [Eliquis 5 mg Tablet] 5 mg PO Q12 #70 tablet 07/06/19 Furosemide [Lasix 20 mg Tablet] 20 mg PO DAILY #30 tablet 07/06/19 Polyethylene Glycol 3350 [Powderlax] 17 gm PO DAILY PRN #30 powd.pack 07/06/19 Oxycodone HCl [Oxy-Ir 5 mg Tablet] 10 mg PO Q4HP PRN 07/17/19 Sennosides/Docusate 8.6-50 mg [Senna Plus Tablet] 1 each PO BIDP PRN 07/17/19 Sulfamethoxazole/Trimethoprim [Sulfamethoxazole-Tmp Ds Tablet] 1 tab PO Q12 07/17/19 Zolpidem Tartrate [Ambien 5 mg Tablet] 5 mg PO HSP PRN 07/17/19 Allergies/Adverse Reactions: No Known Allergies Allergy (Verified 10/07/16 09:57) Physical Exam Vital Signs: Temp Pulse Resp BP Pulse Ox 97.3 F 108 H 22 H 102/61 100 07/17/19 06:41 07/17/19 06:41 07/17/19 07:58 07/17/19 06:41 07/17/19 07:58 Intake & Output 07/16/19 07/17/19 07/18/19 06:59 06:59 06:59 Intake Total 3640 27 Balance 3640 27 Weight 92.8 kg Results Laboratory Results: 07/16/19 21:55 07/17/19 07:28 07/16/19 07/16/19 07/16/19 21:55 21:55 21:55 WBC 24.8 H RBC 3.77 Hgb 10.1 L Hct 31.4 L MCV 83 MCH 26.9 L MCHC 32.2 RDW 16.7 H Plt Count 857 H Seg Neutrophils % Not Reportable Carbonic Acid HCO3/H2CO3 Ratio ABG pH ABG pCO2 ABG pO2 ABG HCO3 ABG O2 Saturation ABG Base Excess FiO2 Sodium 128.9 L Potassium 7.7 H* Chloride 93 L Carbon Dioxide 17 L Anion Gap 19 BUN 100 H Creatinine 6.32 H Est GFR ( Amer) 8 L Est GFR (Non-Af Amer) Glucose 156 H Lactic Acid 4.1 H Calcium 8.6 Magnesium 2.8 H Total Bilirubin 0.5 AST 75 H Alkaline Phosphatase 249 H Total Protein 6.2 L Albumin 3.1 L Urine Color Urine Appearance Urine pH Ur Specific [place] Urine Protein Urine Glucose (UA) Urine Ketones Urine Blood Urine Nitrite Ur Leukocyte Esterase Urine WBC (Auto) Urine RBC (Auto) 07/17/19 07/17/19 07/17/19 02:11 04:20 04:20 WBC RBC Hgb Hct MCV MCH MCHC RDW Plt Count Seg Neutrophils % Carbonic Acid 1.34 HCO3/H2CO3 Ratio 13:1 ABG pH 7.22 L ABG pCO2 44.4 ABG pO2 106.6 H ABG HCO3 17.9 L ABG O2 Saturation 96.9 ABG Base Excess -9.3 FiO2 45% Sodium 131.1 L Potassium 6.1 H* D Chloride 99 Carbon Dioxide 20 L Anion Gap 12 BUN 94 H Creatinine 5.67 H Est GFR ( Amer) 9 L Est GFR (Non-Af Amer) Glucose 145 H Lactic Acid 3.1 H Calcium 7.2 L Magnesium Total Bilirubin AST Alkaline Phosphatase Total Protein Albumin Urine Color Urine Appearance Urine pH Ur Specific [place] Urine Protein Urine Glucose (UA) Urine Ketones Urine Blood Urine Nitrite Ur Leukocyte Esterase Urine WBC (Auto) Urine RBC (Auto) 07/17/19 07/17/19 07/17/19 04:20 07:28 07:28 WBC RBC Hgb Hct MCV MCH MCHC RDW Plt Count Seg Neutrophils % Carbonic Acid HCO3/H2CO3 Ratio ABG pH ABG pCO2 ABG pO2 ABG HCO3 ABG O2 Saturation ABG Base Excess FiO2 Sodium Cancelled Potassium Cancelled Chloride Cancelled Carbon Dioxide Cancelled Anion Gap Cancelled BUN Cancelled Creatinine Cancelled Est GFR ( Amer) Cancelled Est GFR (Non-Af Amer) Cancelled Glucose Cancelled Lactic Acid 3.9 H Calcium Cancelled Magnesium Total Bilirubin AST Alkaline Phosphatase Total Protein Albumin Urine Color CARROL Urine Appearance CLOUDY Urine pH 5.0 Ur Specific [place] 1.019 Urine Protein 100 H Urine Glucose (UA) 150 H Urine Ketones NEGATIVE Urine Blood MODERATE H Urine Nitrite NEGATIVE Ur Leukocyte Esterase SMALL H Urine WBC (Auto) 63 Urine RBC (Auto) 51 07/16/19 21:55 Troponin I < 0.012 Impressions: Chest X-Ray 07/16/19 22:27 IMPRESSION: No evidence of acute cardiopulmonary disease. Head CT 07/16/19 22:27 IMPRESSION: No acute intracranial findings. Assessment & Plan - Diagnosis (1) Ovarian cancer on left Is this a current diagnosis for this admission?: Yes Plan: Stage IV ovarian ca, admitted w/ septic shock. We did this consultation virtually due to the COVID-19 restrictions. We will follow chart notes and are available for discussion any time. Hold on any chemoRx until pt recovers from this episode. Renal function has to improvement significantly as well. - Time Time Spent: 50 to 70 Minutes
[2019-07-17] MEDS ORDERED: MIDAZOLAM 2 MG/2 ML INJ ONE (08:44)
[2019-07-17] MEDS ORDERED: MIDAZOLAM 2 MG/2 ML INJ IV ONE (09:15)
[2019-07-17] MEDS ORDERED: NORMAL SALINE INJ/PF 0.9% 10 ML SDV IV PRN (09:17)
[2019-07-17 09:48] LABS: ANION GAP 17 (5-19); BLOOD UREA NITROGEN 91 mg/dL (7-20); CALCIUM 7.8 mg/dL (8.4-10.2); CARBON DIOXIDE 18 mmol/L (22-30); CHLORIDE 97 mmol/L (98-107); GLUCOSE 146 mg/dL (75-110)
--- NOTE | 2019-07-17 09:48 | CRITICAL CARE ADMISSION REPORT ---
HPI Date:: 07/17/19 Time:: 01:05 Reason for ICU Reason:: Suspect septic shock HPI: Mrs. Camejo is a 59-year-old female with a past medical history significant for type 2 diabetes, rheumatoid arthritis, anxiety with depression, hypertension, recently diagnosed with acute pancreatitis which resolved (June 2019), acute DVT of the left lower extremity for which she has been taking Eliquis, and stage IV cancer presumably from ovarian as primary etiology who was recently discharged on July 05 and presents today with altered mental status associated with progressive weakness. Per ED RN, patient was not tracking with her eyes but would intermittently open them, not following commands on presentation to ED. Patient was noted to be hypotensive reportedly with SBP in the 80's, tachycardia HR 104. She was also noted to be hypoxic with an SPO2 reportedly in the 70s for which she was initially placed on 15 L of O2 resulting in an SPO2 in the 80s and was subsequently placed on BiPAP with resolution of hypoxia. Patient has had very poor p.o. intake recently per her , Mr Camejo, who has been attempting to keep her hydrated as well as nourished with Ensure shakes. Neuro exam now improved following hydration and resolution of hypoxia. She was found to have ELIUD with a BUN/creatinine of 100/6.3 respectively. Hyperkalemia treated with Ca+, Insulin, and D50. Leukocytosis of 25k with left shift and lactate of 4.1. To note, patient was recently treated f or UTI and also had a recent diagnostic paracentesis. Mrs. Camejo collectively received 3 L of crystalloid fluid boluses with improvement in her blood pressure initially, but subsequently developed hypotension again for which she will now be placed on Norepinephrine and admitted to ICU. History obtained from:: ER physician, medical record, patient's - Diagnosis/Plan (1) Septic shock Is this a current diagnosis for this admission?: Yes Plan: Suspect septic shock from either urinary or intra-abdominal source. Received 2.5L crystalloid in ED; POCUS demonstrates still slightly hypovolemic, hyperdynamic, no gross wall motion abnormalities/septal bowing. RV not grossly distended at this time. Administer 500 mL NS bolus x1 to achieve slightly greater than 30 mL/kg sepsis bolus. If unable to maintain MAP >65, will need Norepinephrine infusion. Renally-adjusted Ertapenem for empiric treatment of possible complicated UTI versus SBP; choice is to avoid pseudomonal resistance. Trend lactate prn. Obtain TTE with recent history of acute right-sided heart failure in setting of persistent hypotension. (2) Acute respiratory failure with hypoxia Is this a current diagnosis for this admission?: Yes Plan: Decrease FiO2 to 35%, continue IPAP 14 and EPAP 8. Goal SPO2 > or =92%. Will attempt wean to regular nasal cannula later today after wheezing improved. Monitor work of breathing, presently unlabored with resolution of tachypnea. PRN nebs. (3) ELIUD (acute kidney injury) Is this a current diagnosis for this admission?: Yes Plan: serial BMP prn Cautious IV fluid administration with acute right-sided heart failure, pulmonary HTN previous admission. Monitor hyperkalemia. (4) Metabolic acidosis Is this a current diagnosis for this admission?: Yes Plan: Fluids, vasopressor therapy, antibiotics in setting of sepsis, monitor renal function. Improvement in renal function alone should improve acidemia. (5) Hyperkalemia Is this a current diagnosis for this admission?: Yes Plan: Repeat BMP prn monitoring renal function and for resolution of hyperkalemia. Calcium for cardio-membrane protection, Insulin, D50 prn K+ >6. Monitor for arrhythmias. (6) Deep vein thrombosis (DVT) of left lower extremity Qualifiers: Chronicity: unspecified Is this a current diagnosis for this admission?: Yes Plan: Hold anticoagulation given therapeutic INR 4 and need for diagnostic/therapeutic paracentesis. Then will need heparin gtt versus resuming Eliquis. Will hold off on therapeutic Lovenox at this time given ELIUD. No scd's (7) Ovarian cancer on left Is this a current diagnosis for this admission?: Yes Plan: Metastatic carcinomatosis presumably due to primary ovarian cancer. Will inform Dr Betts of patient's admission after after 7 am. Per patient's , tentative plan was to start chemo this coming week for 3 cycles and then re-assess with possibility of PULL OVER/Onc surgery referral in the future. (8) Malignant ascites Is this a current diagnosis for this admission?: Yes Plan: Consider therapeutic paracentesis as well as R/O SBP given sepsis. Holding Eliquis currently, INR 4. Will need to contact IR later today to discuss coagulation threshold for completing paracentesis. Want to avoid full reversal given DVT and presentation with acute hypoxic resp failure. Will need gram stain C&S at minimum. (9) UTI (urinary tract infection) Qualifiers: Urinary tract infection type: site unspecified Hematuria presence: with hematuria Qualified Code(s): N39.0 - Urinary tract infection, site not specified; R31.9 - Hematuria, unspecified Is this a current diagnosis for this admission?: Yes Plan: Suspected UTI. Recently treated for UTI last admission earlier this month. Start empiric treatment for complicated UTI with Ertapenem with renal dosing considerations. (10) Diabetes mellitus with hyperglycemia Qualifiers: Diabetes mellitus type: type 2 Diabetes mellitus retirement insulin use: without retirement use Qualified Code(s): E11.65 - Type 2 diabetes mellitus with hyperglycemia Is this a current diagnosis for this admission?: Yes Plan: Hold Metformin. Start ISS q6h (11) Rheumatoid arthritis Qualifiers: Rheumatoid arthritis location: multiple sites Rheumatoid factor presence: u nspecified presence Qualified Code(s): M06.9 - Rheumatoid arthritis, unsp ecified Plan: Hold Methotrexate for now; resume when clinically appropriate. Avoid NSAID's due to ELIUD. Past Medical History Cardiac Medical History: Reports: DVT - LLE June 2019, Hypertension, Other - Acute right-sided heart failure with mod to severe pulm HTN June 2019 Pulmonary Medical History: Denies: None EENT Medical History: Reports: None Neurological Medical History: Denies: None Endocrine Medical History: Reports: Diabetes Mellitus Type 2 Denies: Hyperthyroidism, Hypothyroidism Renal/ Medical History: Denies: None Malignancy Medical History: Reports: Ovarian Cancer - Stage IV with carcinomatosis GI Medical History: Denies: None Musculoskeltal Medical History: Reports: Arthritis - RA Skin Medical History: Reports: Other - Cellulitis of BLE's Psychiatric Medical History: Reports: Depression Traumatic Medical History: Reports: None Hematology: Reports: Anemia Infectious Medical History: Denies: None Past Surgical History Past Surgical History: Reports: Cholecystectomy Social/Family History - Social History Lives with: Spouse/Significant other Smoking Status: Former Smoker - 0.5 PPD x43 yrs documented last admission Last Time Smoked: Prior to last admission in early June Frequency of Alcohol Use: None Hx Recreational Drug Use: No Hx Prescription Drug Abuse: No - Family History Family History: DM, Hypertension - Medication/Allergies Home Medications: Duloxetine HCl [Cymbalta] 60 mg PO DAILY 06/25/19 Folic Acid [Folvite 1 mg Tablet] 1 mg PO DAILY 06/25/19 Lisinopril [Prinivil] 20 mg PO DAILY 06/25/19 Metformin HCl [Glucophage 500 mg Tablet] 500 mg PO BID 06/25/19 Methotrexate Sodium [Rheumatrex 2.5 mg Tablet] 12.5 mg PO WE@1000 06/25/19 Apixaban [Eliquis 5 mg Tablet] 5 mg PO Q12 #70 tablet 07/06/19 Furosemide [Lasix 20 mg Tablet] 20 mg PO DAILY #30 tablet 07/06/19 Polyethylene Glycol 3350 [Powderlax] 17 gm PO DAILY PRN #30 powd.pack 07/06/19 Oxycodone HCl [Oxy-Ir 5 mg Tablet] 10 mg PO Q4HP PRN 07/17/19 Sennosides/Docusate 8.6-50 mg [Senna Plus Tablet] 1 each PO BIDP PRN 07/17/19 Sulfamethoxazole/Trimethoprim [Sulfamethoxazole-Tmp Ds Tablet] 1 tab PO Q12 07/17/19 Zolpidem Tartrate [Ambien 5 mg Tablet] 5 mg PO HSP PRN 07/17/19 Allergies/Adverse Reactions: No Known Allergies Allergy (Verified 10/07/16 09:57) Review of Systems ROS unobtainable: Due to mental status - very limited ROS obtained from Respiratory: PRESENT: dyspnea - denies. ABSENT: cough - denies Gastrointestinal: PRESENT: bloating - per , has returned since paracentesis last admission. ABSENT: diarrhea - per , hematemesis, vomiting Genitourinary: PRESENT: other - no voids or incontinence per Musculoskeletal: PRESENT: muscle weakness - per Physical Exam Vital Signs: Temp Pulse Resp BP Pulse Ox 97.5 F 9 L 83/49 L 97 07/16/19 22:51 07/17/19 04:51 07/17/19 04:51 07/17/19 04:51 Intake & Output 07/15/19 07/16/19 07/17/19 06:59 06:59 06:59 Intake Total 3640 Balance 3640 Weight 87.9 kg Weight/Height Weight 87.9 kg Height 5 ft 7 in General appearance: PRESENT: no acute distress, cooperative, obese, well- nourished Head exam: PRESENT: atraumatic, normocephalic Eye exam: PRESENT: conjunctiva pink, EOMI, PERRLA. ABSENT: periorbital swelling, scleral icterus Ear exam: PRESENT: normal external ear exam Mouth exam: PRESENT: dry mucosa, neck supple, tongue midline Throat exam: ABSENT: post pharyngeal erythema Neck exam: PRESENT: full ROM. ABSENT: JVD, lymphadenopathy, tenderness, tracheal deviation Respiratory exam: PRESENT: symmetrical, unlabored, wheezes. ABSENT: accessory muscle use Cardiovascular exam: PRESENT: RRR, +S1, +S2 Pulses: PRESENT: normal carotid pulses, +1 pedal pulses bilateral, other - 1+ bilateral radial pulses Vascular exam: PRESENT: other - capillary refill 3 seconds GI/Abdominal exam: PRESENT: ascites, distended, hypoactive bowel sounds, soft, tenderness - RUQ tenderness to deep palpation which was present during last admission and thought to be from malignancy process. ABSENT: guarding, rebound Rectal exam: PRESENT: deferred Gentrourinary exam: ABSENT: urethral discharge Extremities exam: PRESENT: other - 4+ pedal edema BLE's below the knees. LLE with erythema. ABSENT: calf tenderness, clubbing Musculoskeletal exam: PRESENT: other - weakness to all four extremities, but especially LE's. ABSENT: tenderness Neurological exam: PRESENT: awake, oriented to person, oriented to place, CN II- XII grossly intact. ABSENT: oriented to time, oriented to situation Skin exam: PRESENT: dry, erythema - to LLE, no wound/drainage identified, warm. ABSENT: jaundice, mottled, urticaria Laboratory/Radiographs Laboratory Results: 07/16/19 21:55 07/16/19 07/16/19 07/16/19 21:55 21:55 21:55 WBC 24.8 H RBC 3.77 Hgb 10.1 L Hct 31.4 L MCV 83 MCH 26.9 L MCHC 32.2 RDW 16.7 H Plt Count 857 H Seg Neutrophils % Not Reportable Carbonic Acid HCO3/H2CO3 Ratio ABG pH ABG pCO2 ABG pO2 ABG HCO3 ABG O2 Saturation ABG Base Excess FiO2 Sodium 128.9 L Potassium 7.7 H* Chloride 93 L Carbon Dioxide 17 L Anion Gap 19 BUN 100 H Creatinine 6.32 H Est GFR ( Amer) 8 L Glucose 156 H Lactic Acid 4.1 H Calcium 8.6 Magnesium 2.8 H Total Bilirubin 0.5 AST 75 H Alkaline Phosphatase 249 H Total Protein 6.2 L Albumin 3.1 L Urine Color Urine Appearance Urine pH Ur Specific [place] Urine Protein Urine Glucose (UA) Urine Ketones Urine Blood Urine Nitrite Ur Leukocyte Esterase Urine WBC (Auto) Urine RBC (Auto) 07/17/19 07/17/19 02:11 04:20 WBC RBC Hgb Hct MCV MCH MCHC RDW Plt Count Seg Neutrophils % Carbonic Acid 1.34 HCO3/H2CO3 Ratio 13:1 ABG pH 7.22 L ABG pCO2 44.4 ABG pO2 106.6 H ABG HCO3 17.9 L ABG O2 Saturation 96.9 ABG Base Excess -9.3 FiO2 45% Sodium Potassium Chloride Carbon Dioxide Anion Gap BUN Creatinine Est GFR ( Amer) Glucose Lactic Acid Calcium Magnesium Total Bilirubin AST Alkaline Phosphatase Total Protein Albumin Urine Color [place]ARROL Urine Appearance CLOUDY Urine pH 5.0 Ur Specific [place] 1.019 Urine Protein 100 H Urine Glucose (UA) 150 H Urine Ketones NEGATIVE Urine Blood MODERATE H Urine Nitrite NEGATIVE Ur Leukocyte Esterase SMALL H Urine WBC (Auto) 63 Urine RBC (Auto) 51 07/16/19 21:55 Troponin I < 0.012 Impressions: Chest X-Ray 07/16/19 22:27 IMPRESSION: No evidence of acute cardiopulmonary disease. Head CT 07/16/19 22:27 IMPRESSION: No acute intracranial findings. EKG: No ST elevation or depression, no T wave inversion indicating acute cardiac ischemia. All labs, radiographs, diagnostic studies and EKGs were personally reviewed: Yes Critical Time Critical Time (minutes): 85 -: The care of a critically ill patient is dynamic. This note represents a static moment in the admission process. Orders and treatments may be given simultaneously and urgently, and time is not client support representative of the treatment process. This patient requires Critical Care secondary to life threatening organ or limb dysfunction. Without Critical Care services, the patient is at risk for increased mortality and morbidity.
--- NOTE | 2019-07-17 09:50 | Operative Report ---
Bedside Procedure - History of Present Illness History of Present Illness: 59 year-old female with carcinomatosis presumably from ovarian cancer who presented with altered mental status due to dehydration and septic shock. Also noted to have ELIUD. Patient has received 3L of crystalloid fluid boluses and experiencing refractory shock for which vasopressor therapy is required. Indication for Procedure: septic shock Date: 07/17/19 Provider: NAVEEN LU - Central Line Right Internal jugular Time completed: 09:00 Consent obtained: Yes Central line pre-insertion: Sterile PPE donned, Chloraprep applied, Sterile drapes applied Central line size (Fr.): 7 Central line lumen type: Triple Anesthetic type: 1% Lidocaine mL's of anesthesia: 3 Ultrasound guided: Yes CM at insertion site: 20 Line secured with sutures: Yes Central line post-insertion: Blood return from lumens, Biopatch applied, Sutured, Sterile dressing applied, Position confirmed w/ CXR Number of attempts: 1 Complications: No Notes: Consent verified and on the chart. Patient placed in proper procedural position and the right internal jugular vein was scouted confirming no thrombus is present from the angle of the mandible down to the clavicle. Patient was prepped and draped in usual sterile fashion. Utilizing ultrasound, a 20-gauge introducer needle was visualized entering the right internal jugular vein while attached to a syringe under negative pressure with a subsequent tim of blood. The syringe was removed from the needle noting a slow passive dripping of blood onto the sterile field. A guidewire was then advanced through the introducer needle into the right internal jugular vein and the needle was subsequently removed. The wire was confirmed to be in the right internal jugular vein in 2 views utilizing ultrasound. A small skin stab incision was made over the wire to prepare for dilation. Next, a dilator was passed over the wire to dilate subcutaneous tissue and was subsequently removed. A 7 Sami 20 cm catheter was then placed over the wire into the right internal jugular vein and the guidewire was removed, again noting a slow passive dripping of blood from the distal lumen of the catheter. All lumens aspirated and flushed easily. A Biopatch was placed, the catheter was sutured into place at 20 cm at the skin, and a sterile occlusive transparent dressing was applied. EBL 2 mL. Patient tolerated procedure well with no complications. Chest x-ray confirms no pneumothorax and successful placement of the catheter in the atrio-caval junction. 07/17/19 09:48 07/17/19 09:50
[2019-07-17 10:42] LABS: POTASSIUM 6.3 mmol/L (3.6-5.0)
--- NOTE | 2019-07-17 10:47 | RADIOLOGY REPORT (SQ) ---
EXAM DESCRIPTION: CHEST SINGLE VIEW IMAGES COMPLETED DATE/TIME: 07/17/2019 9:51 am REASON FOR STUDY: s/p R IJ CVC; placement verification; R/O pneumo COMPARISON: None. EXAM PARAMETERS: NUMBER OF VIEWS: One view. TECHNIQUE: Single frontal radiographic view of the chest acquired. RADIATION DOSE: NA LIMITATIONS: None. FINDINGS: LUNGS AND PLEURA: No opacities, masses or pneumothorax. No pleural effusion. MEDIASTINUM AND HILAR STRUCTURES: No masses. Contour normal. HEART AND VASCULAR STRUCTURES: Heart normal in size. Normal vasculature. BONES: No acute findings. HARDWARE: None in the chest. OTHER: Right central line with tip overlying cavoatrial junction. IMPRESSION: Good position of central line. No pneumothorax. TECHNICAL DOCUMENTATION: JOB ID: [id number] 2010 [employer]- All Rights Reserved Reading location - IP/workstation name: [email or web address]
--- NOTE | 2019-07-17 13:45 | PDOC CRITICAL CARE PROG REPORT ---
General Date:: 07/17/19 ICU Day:: 2 Hospital Day:: 2 Resuscitation Status: Full Code Events in the past 12 to 24 Hours:: Continued downward progression. Review of systems relevant to events:: GI, pulmonary, neurologic. Reason for ICU Addmission:: Abdominal compartment syndrome with renal, pulmonary and CV compromise. - Medications: Medications reviewed and adjusted accordingly: Yes Vasopressors:: Levophed. Sedation:: None Physical Exam Vital Signs: Temp Pulse Resp BP Pulse Ox 97.3 F 105 H 16 110/70 94 07/17/19 06:41 07/17/19 11:24 07/17/19 12:55 07/17/19 11:54 07/17/19 12:55 Intake & Output 07/16/19 07/17/19 07/18/19 06:59 06:59 06:59 Intake Total 3640 27 Output Total 400 Balance 3640 -373 Weight 92.8 kg Weight/Height Weight 92.8 kg Height 5 ft 7 in General appearance: PRESENT: no acute distress Head exam: PRESENT: atraumatic, normocephalic Eye exam: PRESENT: conjunctiva pink, EOMI, PERRLA. ABSENT: scleral icterus Ear exam: PRESENT: normal external ear exam Mouth exam: PRESENT: moist, tongue midline Respiratory exam: PRESENT: clear to auscultation clark, decreased breath sounds, unlabored GI/Abdominal exam: PRESENT: ascites, diminished bowel sounds, distended, firm, hypoactive bowel sounds Rectal exam: PRESENT: deferred Gentrourinary exam: PRESENT: indwelling catheter Extremities exam: PRESENT: +1 edema Musculoskeletal exam: PRESENT: normal inspection Neurological exam: PRESENT: altered, CN II-XII grossly intact Psychiatric exam: PRESENT: other - Obtunded Skin exam: PRESENT: dry, intact, warm. ABSENT: cyanosis, rash Tubes/Lines: PRESENT: Central Line Laboratory/Radiographs Laboratory Results: 07/16/19 21:55 07/17/19 09:12 07/16/19 07/16/19 07/16/19 21:55 21:55 21:55 WBC 24.8 H RBC 3.77 Hgb 10.1 L Hct 31.4 L MCV 83 MCH 26.9 L MCHC 32.2 RDW 16.7 H Plt Count 857 H Seg Neutrophils % Not Reportable Carbonic Acid HCO3/H2CO3 Ratio ABG pH ABG pCO2 ABG pO2 ABG HCO3 ABG O2 Saturation ABG Base Excess FiO2 Sodium 128.9 L Potassium 7.7 H* Chloride 93 L Carbon Dioxide 17 L Anion Gap 19 BUN 100 H Creatinine 6.32 H Est GFR ( Amer) 8 L Est GFR (Non-Af Amer) Glucose 156 H Lactic Acid 4.1 H Calcium 8.6 Magnesium 2.8 H Total Bilirubin 0.5 AST 75 H Alkaline Phosphatase 249 H Total Protein 6.2 L Albumin 3.1 L Urine Color Urine Appearance Urine pH Ur Specific Shickley Urine Protein Urine Glucose (UA) Urine Ketones Urine Blood Urine Nitrite Ur Leukocyte Esterase Urine WBC (Auto) Urine RBC (Auto) 07/17/19 07/17/19 07/17/19 02:11 04:20 04:20 WBC RBC Hgb Hct MCV MCH MCHC RDW Plt Count Seg Neutrophils % Carbonic Acid 1.34 HCO3/H2CO3 Ratio 13:1 ABG pH 7.22 L ABG pCO2 44.4 ABG pO2 106.6 H ABG HCO3 17.9 L ABG O2 Saturation 96.9 ABG Base Excess -9.3 FiO2 45% Sodium 131.1 L Potassium 6.1 H* D Chloride 99 Carbon Dioxide 20 L Anion Gap 12 BUN 94 H Creatinine 5.67 H Est GFR ( Amer) 9 L Est GFR (Non-Af Amer) Glucose 145 H Lactic Acid 3.1 H Calcium 7.2 L Magnesium Total Bilirubin AST Alkaline Phosphatase Total Protein Albumin Urine Color Urine Appearance Urine pH Ur Specific Shickley Urine Protein Urine Glucose (UA) Urine Ketones Urine Blood Urine Nitrite Ur Leukocyte Esterase Urine WBC (Auto) Urine RBC (Auto) 07/17/19 07/17/19 07/17/19 04:20 07:28 07:28 WBC RBC Hgb Hct MCV MCH MCHC RDW Plt Count Seg Neutrophils % Carbonic Acid HCO3/H2CO3 Ratio ABG pH ABG pCO2 ABG pO2 ABG HCO3 ABG O2 Saturation ABG Base Excess FiO2 Sodium Cancelled Potassium Cancelled Chloride Cancelled Carbon Dioxide Cancelled Anion Gap Cancelled BUN Cancelled Creatinine Cancelled Est GFR ( Amer) Cancelled Est GFR (Non-Af Amer) Cancelled Glucose Cancelled Lactic Acid 3.9 H Calcium Cancelled Magnesium Total Bilirubin AST Alkaline Phosphatase Total Protein Albumin Urine Color CARROL Urine Appearance CLOUDY Urine pH 5.0 Ur Specific Shickley 1.019 Urine Protein 100 H Urine Glucose (UA) 150 H Urine Ketones NEGATIVE Urine Blood MODERATE H Urine Nitrite NEGATIVE Ur Leukocyte Esterase SMALL H Urine WBC (Auto) 63 Urine RBC (Auto) 51 07/17/19 09:12 WBC RBC Hgb Hct MCV MCH MCHC RDW Plt Count Seg Neutrophils % Carbonic Acid HCO3/H2CO3 Ratio ABG pH ABG pCO2 ABG pO2 ABG HCO3 ABG O2 Saturation ABG Base Excess FiO2 Sodium 131.5 L Potassium 6.3 H* Chloride 97 L Carbon Dioxide 18 L Anion Gap 17 BUN 91 H Creatinine 6.10 H Est GFR ( Amer) 8 L Est GFR (Non-Af Amer) Glucose 146 H Lactic Acid Calcium 7.8 L Magnesium Total Bilirubin AST Alkaline Phosphatase Total Protein Albumin Urine Color Urine Appearance Urine pH Ur Specific Shickley Urine Protein Urine Glucose (UA) Urine Ketones Urine Blood Urine Nitrite Ur Leukocyte Esterase Urine WBC (Auto) Urine RBC (Auto) 07/16/19 21:55 Troponin I < 0.012 Impressions: Head CT 07/16/19 22:27 IMPRESSION: No acute intracranial findings. Chest X-Ray 07/17/19 00:00 IMPRESSION: Good position of central line. No pneumothorax. 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 Unfortunately with an abdominal compartment pressure of 30 and no good and permanent way to relieve her course is likely uniformly fatal. Plan to inform family later today. (2) Acute renal failure Qualifiers: Acute renal failure type: with acute tubular necrosis Qualified Code(s): N17.0 - Acute kidney failure with tubular necrosis Is this a current diagnosis for this admission?: Yes Plan: This is a consequence of ACS and likely will continue to worsen as it has. (3) Acute respiratory failure with hypoxia Is this a current diagnosis for this admission?: Yes Plan: Her lungs are clear. With encephalopathy and ACS she is ineffectively breathing. (4) Deep vein thrombosis (DVT) of left lower extremity Qualifiers: Affected thrombotic vein of extremity: femoral Chronicity: unspecified Qualified Code(s): I82.412 - Acute embolism and thrombosis of left femoral vein Is this a current diagnosis for this admission?: Yes Plan: Eliquis on hold in case paracentesis is requested which I do not believe will help. (5) Diabetes mellitus with hyperglycemia Qualifiers: Diabetes mellitus type: type 2 Diabetes mellitus intermediate insulin use: without intermediate use Qualified Code(s): E11.65 - Type 2 diabetes mellitus with hyperglycemia Is this a current diagnosis for this admission?: Yes Plan: Controlled. (6) Hyperkalemia Is this a current diagnosis for this admission?: Yes Plan: Will increase kayexalate (7) Malignant ascites Is this a current diagnosis for this admission?: Yes Plan: A difficult problem given her circumstances. (8) Ovarian cancer on left Is this a current diagnosis for this admission?: Yes Plan: Origen of overall problem and not stable enough for CTx. Dr. Gallagher aware. Plan Summary: Plan to inform family and arrange for visitation. Critical Time Critical Time (minutes): 35 Level of Care: ICU Anticipated discharge: Hospice Within: within 72 hours -: 1. The care of a critical patient is a dynamic process. This note is a sales representative girls' apparel synopsis but static in nature. The timeframe for treatments given in order is not necessarily the actual time these treatments may have been done. 2. This patient requires critical care secondary to ongoing requirements for therapy not offered or safe outside the critical care environment. Transfer to a lower level of care will result in altered life or limb morbidity and mortality. 3. Multidisciplinary rounds completed. 4. ABCDE bundle addressed.
[2019-07-17] MEDS ORDERED: FUROSEMIDE INJ/PF 40 MG/4 ML SDV IV ONE (16:15)
[2019-07-17 22:27] LABS: ANION GAP 16 (5-19); BLOOD UREA NITROGEN 96 mg/dL (7-20); CALCIUM 7.6 mg/dL (8.4-10.2); CARBON DIOXIDE 17 mmol/L (22-30); CHLORIDE 96 mmol/L (98-107); GLUCOSE 123 mg/dL (75-110)
[2019-07-17 22:39] LABS: POTASSIUM 7.1 mmol/L (3.6-5.0)
[2019-07-18] MEDS: DEXTROSE 5%-WATER 250 ML with NOREPINEPHRINE BITARTRATE 4 MG IV PRN ×4 (03:28→11:10)
[2019-07-18 03:45] LABS: HEMATOCRIT 25.5 % (36.0-47.0); HEMOGLOBIN 8.4 g/dL (12.0-15.5); MEAN CORPUSCULAR HEMOGLOBIN 27.5 pg (27.0-33.4); MEAN CORPUSCULAR VOLUME 83 fl (80-97); PLATELET COUNT 674 10^3/uL (150-450); RED BLOOD COUNT 3.06 10^6/uL (3.72-5.28); RED CELL DISTRIBUTION WIDTH 17.2 % (11.5-14.0); WHITE BLOOD COUNT 27.8 10^3/uL (4.0-10.5)
[2019-07-18 03:58] LABS: INTERNATIONAL RATION (INR) 2.67
[2019-07-18 04:06] LABS: ANION GAP 16 (5-19); BLOOD UREA NITROGEN 100 mg/dL (7-20); CALCIUM 7.7 mg/dL (8.4-10.2); CARBON DIOXIDE 17 mmol/L (22-30); CHLORIDE 97 mmol/L (98-107); GLUCOSE 177 mg/dL (75-110)
[2019-07-18 04:10] LABS: ABSOLUTE LYMPHOCYTES# (MANUAL) 0.3 10^3/uL (0.5-4.7); ABSOLUTE MONOCYTES # (MANUAL) 0.6 10^3/uL (0.1-1.4); BASOPHILS % (MANUAL) 0 % (0-2); EOSINOPHILS % (MANUAL) 0 % (0-6); LYMPHOCYTES % (MANUAL) 1 % (13-45); MONOCYTES % (MANUAL) 2 % (3-13); SEGMENTED NEUTROPHILS % (MAN) 97 % (42-78); TOTAL CELLS COUNTED 100
[2019-07-18 04:11] LABS: ANISOCYTOSIS 1+; PLATELET COMMENT INCREASED
[2019-07-18 04:12] LABS: POLYCHROMASIA SLIGHT
[2019-07-18 04:14] LABS: POTASSIUM 6.9 mmol/L (3.6-5.0)
[2019-07-18] MEDS ORDERED: DEXTROSE 50%-WATER 25 GM/50 ML DISP.SYRIN IV ONE (04:25)
[2019-07-18] MEDS ORDERED: INSULIN REG, HUMAN 100 UNIT/ML 3 ML VIAL (PYX) IV ONE (04:25)
[2019-07-18] MEDS ORDERED: CALCIUM GLUCONATE 1000 MG/10 ML INJ IV ONE (04:25)
[2019-07-18] MEDS ORDERED: FUROSEMIDE INJ/PF 100 MG/10 ML SDV IV ONE (04:32)
[2019-07-18] MEDS ORDERED: ERTAPENEM SODIUM 0.5 GM in NORMAL SALINE 50 ML IV SCH (10:00)
[2019-07-18 11:13] LABS: ANION GAP 16 (5-19); BLOOD UREA NITROGEN 92 mg/dL (7-20); CALCIUM 7.8 mg/dL (8.4-10.2); CARBON DIOXIDE 17 mmol/L (22-30); CHLORIDE 95 mmol/L (98-107); GLUCOSE 182 mg/dL (75-110)
--- NOTE | 2019-07-18 12:04 | PDOC CRITICAL CARE PROG REPORT ---
General Date:: 07/18/19 ICU Day:: 2 Hospital Day:: 2 Resuscitation Status: Do Not Resuscitate Events in the past 12 to 24 Hours:: Organs failing including renal, respiratory. prefers hospice home if possible in-pt if needed. Review of systems relevant to events:: Respiratory, renal. Neurologic. Reason for ICU Addmission:: Abdominal compartment syndrome with renal, pulmonary and CV compromise. - Medications: Medications reviewed and adjusted accordingly: Yes Vasopressors:: Levophed. Sedation:: None Physical Exam Vital Signs: Temp Pulse Resp BP Pulse Ox 98.1 F 98 10 L 97/58 L 98 07/18/19 10:00 07/18/19 10:00 07/18/19 10:25 07/18/19 10:25 07/18/19 10:25 Intake & Output 07/17/19 07/18/19 07/19/19 06:59 06:59 06:59 Intake Total 3640 1273 250 Output Total 470 15 Balance 3640 803 235 Weight 92.8 kg 94.3 kg Weight/Height Weight 94.3 kg Height 5 ft 7 in General appearance: PRESENT: no acute distress Eye exam: PRESENT: conjunctiva pink, EOMI, PERRLA. ABSENT: scleral icterus Ear exam: PRESENT: normal external ear exam Mouth exam: PRESENT: moist, tongue midline Respiratory exam: PRESENT: clear to auscultation clark, decreased breath sounds, unlabored, other - Bradypnea. Cardiovascular exam: PRESENT: tachycardia GI/Abdominal exam: PRESENT: distended, firm, other - Less firm than yesterday. Rectal exam: PRESENT: deferred Extremities exam: PRESENT: pedal edema, +2 edema Musculoskeletal exam: PRESENT: normal inspection Neurological exam: PRESENT: altered Skin exam: PRESENT: dry, intact, warm. ABSENT: cyanosis, rash Laboratory/Radiographs Laboratory Results: 07/18/19 03:30 07/18/19 10:28 07/17/19 07/18/19 07/18/19 21:45 03:30 03:30 WBC 27.8 H RBC 3.06 L Hgb 8.4 L Hct 25.5 L MCV 83 MCH 27.5 MCHC 33.0 RDW 17.2 H Plt Count 674 H Seg Neutrophils % Not Reportable Sodium 129.3 L 129.5 L Potassium 7.1 H* 6.9 H* Chloride 96 L 97 L Carbon Dioxide 17 L 17 L Anion Gap 16 16 BUN 96 H 100 H Creatinine 6.43 H 6.62 H Est GFR ( Amer) 8 L 8 L Glucose 123 H 177 H Calcium 7.6 L 7.7 L 07/18/19 10:28 WBC RBC Hgb Hct MCV MCH MCHC RDW Plt Count Seg Neutrophils % Sodium 128.0 L Potassium 7.0 H* Chloride 95 L Carbon Dioxide 17 L Anion Gap 16 BUN 92 H Creatinine 6.73 H Est GFR ( Amer) 8 L Glucose 182 H Calcium 7.8 L 07/16/19 21:55 Troponin I < 0.012 Impressions: Head CT 07/16/19 22:27 IMPRESSION: No acute intracranial findings. Chest X-Ray 07/17/19 00:00 IMPRESSION: Good position of central line. No pneumothorax. All labs, radiographs, diagnostic studies and EKGs were personally reviewed: Yes In addition, reports of radiographic and diagnostic studies were read: Yes Assessment and Plan - Diagnosis (1) Carcinomatosis peritonei Is this a current diagnosis for this admission?: Yes Plan: She is reaching an end stage and I do not believe she will survive long. Hospice to see today. (2) Acute renal failure Qualifiers: Acute renal failure type: with acute tubular necrosis Qualified Code(s): N17.0 - Acute kidney failure with tubular necrosis Is this a current diagnosis for this admission?: Yes Plan: Worsening with hyperkalemia rising and Cr rising (3) Acute respiratory failure with hypoxia Is this a current diagnosis for this admission?: Yes Plan: She is not increasingly hypoxic but RR down to <10 at times. (4) Deep vein thrombosis (DVT) of left lower extremity Qualifiers: Affected thrombotic vein of extremity: femoral Chronicity: unspecified Qualified Code(s): I82.412 - Acute embolism and thrombosis of left femoral vein Is this a current diagnosis for this admission?: Yes Plan: No treatment at this point. (5) Diabetes mellitus with hyperglycemia Qualifiers: Diabetes mellitus type: type 2 Diabetes mellitus exterminator helper insulin use: [facility] use Qualified Code(s): E11.65 - Type 2 diabetes mellitus with hyperglycemia Is this a current diagnosis for this admission?: Yes Plan: No treatment at this point (6) Hyperkalemia Is this a current diagnosis for this admission?: Yes Plan: Worsening to a level of 7.0 (7) Malignant ascites Is this a current diagnosis for this admission?: Yes Plan: Still present but less firm. (8) Ovarian cancer on left Is this a current diagnosis for this admission?: Yes Plan: Reaching end stage. Plan Summary: Spoke to who will begin calling family. She may be too unstable for home hospice. May invoke comfort care in house. Critical Time Critical Time (minutes): 40 Level of Care: ICU Anticipated discharge: Hospice Within: within 24 hours -: 1. The care of a critical patient is a dynamic process. This note is a service support representative synopsis but static in nature. The timeframe for treatments given in order is not necessarily the actual time these treatments may have been done. 2. This patient requires critical care secondary to ongoing requirements for therapy not offered or safe outside the critical care environment. Transfer to a lower level of care will result in altered life or limb morbidity and mortality. 3. Multidisciplinary rounds completed. 4. ABCDE bundle addressed.
[2019-07-18] MEDS: MORPHINE SULFATE 10 MG/ML INJ IV PRN ×4 (15:00→19:50)
[2019-07-18] MEDS ORDERED: MIDAZOLAM 2 MG/2 ML INJ ONE (17:24)
[2019-07-18] MEDS ORDERED: MIDAZOLAM 2 MG/2 ML INJ IV ONE (17:25)
[2019-07-18 18:40] VITALS: BP 76/42
[2019-07-18] MEDS ORDERED: SCOPOLAMINE HYDROBROMIDE 1.5 MG PATCH.TD72 TD ONE (19:33)
[2019-07-19] MEDS ORDERED: MEROPENEM 1 GM in NORMAL SALINE 50 ML IV SCH (10:00)
--- NOTE | 2019-07-19 18:55 | Death Summary ---
Summary Date : 07/18/19 Time of :: 20:36 Resuscitation Status: Comfort Measures Only - Final Diagnosis (1) Septic shock Is this a current diagnosis for this admission?: Yes (2) Acute respiratory failure with hypoxia Is this a current diagnosis for this admission?: Yes (3) ELIUD (acute kidney injury) Is this a current diagnosis for this admission?: Yes (4) Metabolic acidosis Is this a current diagnosis for this admission?: Yes (5) Hyperkalemia Is this a current diagnosis for this admission?: Yes (6) Deep vein thrombosis (DVT) of left lower extremity Is this a current diagnosis for this admission?: Yes (7) Ovarian cancer on left Is this a current diagnosis for this admission?: Yes (8) Malignant ascites Is this a current diagnosis for this admission?: Yes (9) UTI (urinary tract infection) Is this a current diagnosis for this admission?: Yes (10) Diabetes mellitus with hyperglycemia Is this a current diagnosis for this admission?: Yes Hospital Course:: HPI: Mrs. Camejo is a 59-year-old female with a past medical history significant for type 2 diabetes, rheumatoid arthritis, anxiety with depression, hypertension, recently diagnosed with acute pancreatitis which resolved (June 2019), acute DVT of the left lower extremity for which she has been taking Eliquis, and stage IV cancer presumably from ovarian as primary etiology who was recently discharged on July 05 and presents today with altered mental status associated with progressive weakness. Per ED RN, patient was not tracking with her eyes but would intermittently open them, not following commands on presentation to ED. Patient was noted to be hypotensive reportedly with SBP in the 80's, tachycardia HR 104. She was also noted to be hypoxic with an SPO2 reportedly in the 70s for which she was initially placed on 15 L of O2 resulting in an SPO2 in the 80s and was subsequently placed on BiPAP with resolution of hypoxia. Patient has had very poor p.o. intake recently per her , Mr Camejo, who has been attempting to keep her hydrated as well as nourished with Ensure shakes. Neuro exam now improved following hydration and resolution of hypoxia. She was found to have ELIUD with a BUN/creatinine of 100/6.3 respectively. Hyperkalemia treated with Ca+, Insulin, and D50. Leukocytosis of 25k with left shift and lactate of 4.1. To note, patient was recently treated for UTI and also had a recent diagnostic paracentesis. Mrs. Camejo collectively received 3 L of crystalloid fluid boluses with improvement in her blood pressure initially, but subsequently developed hypotension again for which she will now be placed on Norepinephrine and admitted to ICU. Hospital course: Mrs. Camejo was admitted to ICU for septic shock requiring vasopressor therapy, oliguric ELIUD, and hyperkalemia. She remained confused with encephalopathy due to sepsis, though her mentation had improved compared to when she arrived in the ED. Her BP was stabilized with Norepinephrine, though she was unable to make much progress with weaning the medication. Her respiratory failure was stabilized with non-invasive ventilation. However, her kidneys never recovered or produced any significant urine output which was multifactorial from hypotension, hypovolemia, and concern for abdominal compartment syndrome. Given the patient's stage IV ovarian cancer with carcinomatosis with a large amount of malignant ascites, there was no operation that would benefit her at this time. Dr Moreno was informed of Mrs. Camejo's admission as well. Medical prognosis was discussed by Dr Willis with Mr. Camejo, for which he ultimately decided to make Mrs. Camejo comfort care earlier today. Mrs. Camejo expectantly at 20:36 pm on 07/18/2019. The and other family members were present. Dr Moreno and Dr Willis were informed of Mrs. Camejo's expectant .
== END 2019-07-18 21:56 | disposition expired | DRG 871 ==
LOC: ER 21:24 → EH 07-17 05:21 → ICU 07-17 06:37
PROVIDERS: ADMIT Anesthesiology; ATTEND Anesthesiology
PROC: 5A09357 Assistance with Respiratory Ventilation, Less than 24 Consecutive Hours, Continuous Positive Airway Pressure (ICD-10-PCS; principal; 2019-07-17)
PROC: 02HV33Z Insertion of Infusion Device into Superior Vena Cava, Percutaneous Approach (ICD-10-PCS; 2019-07-17)
PROC: B548ZZA Ultrasonography of Superior Vena Cava, Guidance (ICD-10-PCS; 2019-07-17)
DX: A41.9 Sepsis, unspecified organism (principal); R65.21 Severe sepsis with septic shock; J96.01 Acute respiratory failure with hypoxia; K85.90 Acute pancreatitis without necrosis or infection, unspecified; N17.0 Acute kidney failure with tubular necrosis; G93.40 Encephalopathy, unspecified; R18.0 Malignant ascites; I82.402 Acute embolism and thrombosis of unspecified deep veins of left lower extremity; E87.2 Acidosis; N39.0 Urinary tract infection, site not specified; C56.2 Malignant neoplasm of left ovary; Z51.5 Encounter for palliative care; I27.20 Pulmonary hypertension, unspecified; I50.9 Heart failure, unspecified; I11.0 Hypertensive heart disease with heart failure; E87.5 Hyperkalemia; E11.65 Type 2 diabetes mellitus with hyperglycemia; M06.9 Rheumatoid arthritis, unspecified; F41.8 Other specified anxiety disorders; D64.9 Anemia, unspecified; E66.9 Obesity, unspecified; E86.0 Dehydration; Z87.891 Personal history of nicotine dependence; Z83.3 Family history of diabetes mellitus; Z82.49 Family history of ischemic heart disease and other diseases of the circulatory system
CPT/HCPCS: 36415; 36556; 51702; 70450; 71045; 80048; 80053; 80307; 81001; 82533; 82803; 82962; 83605; 83735; 84484; 85025; 85610; 87040; 87086; 93005; 93010; 94640; 94660; 96361; 96365; 96375; 99291; 99292; J0610; J1335; J1815; J1940; J2250; J2270; J2310; J2543; J3490; J7030; J7040; J7060; J7620